=== PATIENT | male | born 1965 | race Caucasian/White ===

== ENCOUNTER 2018-03-12 00:05 | Emergency (ER) | payer OTHER, MEDICAID, SELFPAY ==
[2018-03-12 00:11] VITALS: BP 140/84; PULSE 85; RESP 16; TEMP 36.7; O2SAT 99
--- NOTE | 2018-03-12 00:25 | W.ED.GENAD ---
Discharge Plan Disposition Patient Disposition: HOME Condition: Good Discharge Details Chief Complaint: DentalOral Clinical Impression: Dental infection Primary Care Provider: Hai Guerrero ED Provider: Anmol Barrett Meds and New Rx's Prescriptions: New benzocaine [HurriCaine] 20 % Gel 30 g Mucous Membrane DIRECTED PRNQty: 30 RF: 0 clindamycin HCl 150 mg capsule 450 mg PO TID Qty: 60 RF: 0 Continue acetaminophen [Tylenol] 325 MG tablet 650 mg PO Q4H PRN PRNQty: 30 RF: 0 naproxen sodium [Aleve] 220 MG capsule 440 mg PO Q4H PRNQty: 30 RF: 0 Discharge Instructions Instructions: Dental Abscess (ED) Additional Instructions: Continue to use acetaminophen or Naprosyn as needed for pain. Use the benzocaine gel as directed every 4-6 hours to help with pain. Take antibiotic and follow-up with dentist next week. Return to ED for high fever, facial swelling, difficulty breathing, inability to swallow. Medical Decision Making Patient here with worsening dental pain. He has percussion tenderness and likely has dental infection. 20% topical benzocaine used to relieve his pain. Will be started on clindamycin for infection as he has allergies to penicillin. He just recently got dental insurance and has plans to go to [facility] [place]. Return to ED for fever, facial swelling, difficulty breathing, inability to swallow. HPI General Mode of arrival: ambulatory. Date/Time Provider Initiated Documentation: 03/12/18 00:25. Limitations to Documentation: no limitations. Information obtained by: patient. HPI Narrative: Patient here with right lower jaw pain and toothache. Started tonight before he went to work. Has got worse since being at work. He can no longer stand the pain despite taking Aleve. Presents now for evaluation. Denies any fever. Denies facial swelling. Denies difficulty breathing or swallowing. Related Data Home Medications Medication Instructions Recorded Confirmed acetaminophen [Tylenol] 650 mg PO Q4H PRN PRN #30 tab 05/07/17 03/12/18 naproxen sodium [Aleve] 440 mg PO Q4H PRN #30 05/07/17 03/12/18 benzocaine [HurriCaine] 30 g MUCOUS MEMBRANE DIRECTED 03/12/18 PRN #30 gm clindamycin HCl 450 mg PO TID #60 cap 03/12/18 Previous Rx's Medication Instructions Recorded acetaminophen [Tylenol] 650 mg PO Q4H PRN PRN #30 tab 05/07/17 naproxen sodium [Aleve] 440 mg PO Q4H PRN #30 05/07/17 benzocaine [HurriCaine] 30 g MUCOUS MEMBRANE DIRECTED 03/12/18 PRN #30 gm clindamycin HCl 450 mg PO TID #60 cap 03/12/18 Allergies Allergy/AdvReac Type Severity Reaction Status Date / Time meloxicam Allergy Mild Unverified 03/12/18 00:31 Penicillins Allergy Mild Hives Unverified 03/12/18 00:31 tramadol [From Ultram] AdvReac Intermediate Nausea, Unverified 03/12/18 00:31 vomiting General Stated Complaint: DentalOral DRU: 4 Review of Systems Constitutional Denies fever(s) ENT Reports dental pain, Denies dysphagia, Denies odynophagia and Denies sore throat Cardiovascular Denies dyspnea Respiratory Denies dyspnea Gastrointestinal Denies dysphagia and Denies odynophagia PFSH Chronic otitis media of right ear Hearing loss Heart murmur Hx of cataract Tympanic membrane perforation Family History Other Bronchitis Heart disease Lymphoma Melanoma Thyroid cancer Arthroscopy, Shoulder Extraction of cataract Nephrectomy Repair of inguinal hernia (05/07/17) ear surgery wrist surgery Family History Other Bronchitis Heart disease Lymphoma Melanoma Thyroid cancer Medical History Chronic otitis media of right ear Hearing loss Heart murmur Hx of cataract Tympanic membrane perforation Social History Smoking/Tobacco Use Status: Current every day Surgical History Arthroscopy, Shoulder Extraction of cataract Nephrectomy Repair of inguinal hernia (05/07/17) ear surgery wrist surgery Social History Smoking/Tobacco Use Status: Current every day Exam Const General: cooperative, uncomfortable and no acute distress Orientation: alert and oriented x3 HENMT Head: normocephalic and atraumatic Face and sinus: normal facial exam Mouth: oropharynx normal Teeth and gingiva: abnormal tooth or associated gingiva (Right lower molars with decay/fillings; no abscess; positive percussion tenderness) Neck Neck: normal visual inspection, no lymphadenopathy, trachea midline and supple Neuro General: alert, oriented x3, no focal motor deficits and CN's II-XI intact bilaterally Course Vital Signs Temperature 98.1 F 03/12/18 00:11 Pulse 85 03/12/18 00:11 Respiratory Rate 16 03/12/18 00:11 Blood Pressure 140/84 03/12/18 00:11 Pulse Oximetry 99 03/12/18 00:11 Temperature 98.1 F 03/12/18 00:11 Temperature Source Skin 03/12/18 00:11 Pulse 85 03/12/18 00:11 Respiratory Rate 16 03/12/18 00:11 Blood Pressure 140/84 03/12/18 00:11 Blood Pressure Position Sitting 03/12/18 00:11 Pulse Oximetry 99 03/12/18 00:11 Oxygen Delivery Method Room Air 03/12/18 00:11 Oxygen Flow Rate 0 03/12/18 00:11
--- NOTE | 2018-03-12 00:31 | ED.GENADUL_ITS ---
Discharge Plan Disposition Patient Disposition: HOME Condition: Good Discharge Details Chief Complaint: DentalOral Clinical Impression: Dental infection Primary Care Provider: Hai Guerrero ED Provider: Anmol Barrett Meds and New Rx's Prescriptions: New benzocaine [HurriCaine] 20 % Gel 30 g Mucous Membrane DIRECTED PRNQty: 30 RF: 0 clindamycin HCl 150 mg capsule 450 mg PO TID Qty: 60 RF: 0 Continue acetaminophen [Tylenol] 325 MG tablet 650 mg PO Q4H PRN PRNQty: 30 RF: 0 naproxen sodium [Aleve] 220 MG capsule 440 mg PO Q4H PRNQty: 30 RF: 0 Discharge Instructions Instructions: Dental Abscess (ED) Additional Instructions: Continue to use acetaminophen or Naprosyn as needed for pain. Use the benzocaine gel as directed every 4-6 hours to help with pain. Take antibiotic and follow-up with dentist next week. Return to ED for high fever, facial swelling, difficulty breathing, inability to swallow. Medical Decision Making Patient here with worsening dental pain. He has percussion tenderness and likely has dental infection. 20% topical benzocaine used to relieve his pain. Will be started on clindamycin for infection as he has allergies to penicillin. He just recently got dental insurance and has plans to go to [facility] [place]. Return to ED for fever, facial swelling, difficulty breathing, inability to swallow. HPI General Mode of arrival: ambulatory . Date/Time Provider Initiated Documentation: 03/12/18 00:25 . Limitations to Documentation: no limitations . Information obtained by: patient . HPI Narrative: Patient here with right lower jaw pain and toothache. Started tonight before he went to work. Has got worse since being at work. He can no longer stand the pain despite taking Aleve. Presents now for evaluation. Denies any fever. Denies facial swelling. Denies difficulty breathing or swallowing. Related Data Home Medications Medication Instructions Recorded Confirmed acetaminophen [Tylenol] 650 mg PO Q4H PRN PRN #30 tab 05/07/17 03/12/18 naproxen sodium [Aleve] 440 mg PO Q4H PRN #30 05/07/17 03/12/18 benzocaine [HurriCaine] 30 g MUCOUS MEMBRANE DIRECTED 03/12/18 PRN #30 gm clindamycin HCl 450 mg PO TID #60 cap 03/12/18 Previous Rx's Medication Instructions Recorded acetaminophen [Tylenol] 650 mg PO Q4H PRN PRN #30 tab 05/07/17 naproxen sodium [Aleve] 440 mg PO Q4H PRN #30 05/07/17 benzocaine [HurriCaine] 30 g MUCOUS MEMBRANE DIRECTED 03/12/18 PRN #30 gm clindamycin HCl 450 mg PO TID #60 cap 03/12/18 Allergies Allergy/AdvReac Type Severity Reaction Status Date / Time meloxicam Allergy Mild Unverified 03/12/18 00:31 Penicillins Allergy Mild Hives Unverified 03/12/18 00:31 tramadol [From Ultram] AdvReac Intermediate Nausea, Unverified 03/12/18 00:31 vomiting General Stated Complaint: DentalOral DRU: 4 Review of Systems Constitutional Denies fever(s) ENT Reports dental pain, Denies dysphagia, Denies odynophagia and Denies sore throat Cardiovascular Denies dyspnea Respiratory Denies dyspnea Gastrointestinal Denies dysphagia and Denies odynophagia PFSH Chronic otitis media of right ear Hearing loss Heart murmur Hx of cataract Tympanic membrane perforation Family History Other Bronchitis Heart disease Lymphoma Melanoma Thyroid cancer Arthroscopy, Shoulder Extraction of cataract Nephrectomy Repair of inguinal hernia (05/07/17) ear surgery wrist surgery Family History Other Bronchitis Heart disease Lymphoma Melanoma Thyroid cancer Medical History Chronic otitis media of right ear Hearing loss Heart murmur Hx of cataract Tympanic membrane perforation Social History Smoking/Tobacco Use Status: Current every day Surgical History Arthroscopy, Shoulder Extraction of cataract Nephrectomy Repair of inguinal hernia (05/07/17) ear surgery wrist surgery Social History Smoking/Tobacco Use Status: Current every day Exam Const General: cooperative, uncomfortable and no acute distress Orientation: alert and oriented x3 HENMT Head: normocephalic and atraumatic Face and sinus: normal facial exam Mouth: oropharynx normal Teeth and gingiva: abnormal tooth or associated gingiva (Right lower molars with decay/fillings; no abscess; positive percussion tenderness) Neck Neck: normal visual inspection, no lymphadenopathy, trachea midline and supple Neuro General: alert, oriented x3, no focal motor deficits and CN's II-XI intact bilaterally Course Vital Signs Temperature 98.1 F 03/12/18 00:11 Pulse 85 03/12/18 00:11 Respiratory Rate 16 03/12/18 00:11 Blood Pressure 140/84 03/12/18 00:11 Pulse Oximetry 99 03/12/18 00:11 Temperature 98.1 F 03/12/18 00:11 Temperature Source Skin 03/12/18 00:11 Pulse 85 03/12/18 00:11 Respiratory Rate 16 03/12/18 00:11 Blood Pressure 140/84 03/12/18 00:11 Blood Pressure Position Sitting 03/12/18 00:11 Pulse Oximetry 99 03/12/18 00:11 Oxygen Delivery Method Room Air 03/12/18 00:11 Oxygen Flow Rate 0 03/12/18 00:11
[2018-03-12] MEDS: Benzocaine 20% Gel 30 GM JAR MM (00:35)
[2018-03-12] MEDS: Clindamycin 150 MG CAP 450 MG PO (00:45)
== END 2018-03-12 00:55 | disposition home or self-care (01) ==
LOC: ER 01:01
PROVIDERS: Emergency Provider Emergency Medicine; PCP Family Medicine
DX: R68.84 Jaw pain (principal); K04.7 Periapical abscess without sinus
CPT/HCPCS: 99283

== ENCOUNTER 2018-04-20 16:33 | Outpatient (REF) | payer OTHER, MEDICAID, SELFPAY ==
[2018-04-21 12:46] LABS: HCT 44.2 % (40.0-50.0); HGB 15.2 g/dL (13.5-17.5); Mean Corp. HGB Concentration 34.4 g/dL (32.0-36.0); Mean Corpuscular Hemoglobin 31.5 pg (27.0-33.0); Mean Corpuscular Volume 91.5 fL (80-95); Mean Platelet Volume 10.3 fL (8.0-11.0); Platelet Count 307 x1000/uL (130-400); RBC 4.83 m/cumm (4.50-6.00); RBC Distribution Width 13.7 % (11.8-14.1); White Blood Cell Count 11.97 k/cumm (4.4-10.8)
[2018-04-21 13:13] LABS: Iron 35 ug/dL (50-175); Total Iron Binding Capacity 241 ug/dL (250-450); Transferrin Sat 15 % (20-55)
[2018-04-21 13:40] LABS: ALT 13 U/L (12-78); AST 20 U/L (15-37); Albumin 3.6 g/dL (3.4-5.0); Alkaline Phosphatase 92 U/L (46-116); Anion Gap 7.6 mmol/L (3-11); BUN 20 mg/dL (7-18); Bilirubin, Total 0.3 mg/dL (0.2-1.0); CO2 27.4 mmol/L (21.0-32.0); Calcium 9.2 mg/dL (8.5-10.1); Chloride 107 mmol/L (98-107); Estimated GFR 48.95 (mL/min/1.73m2); Glucose 86 mg/dL (70-100); Potassium 4.6 mmol/L (3.5-5.1); Sodium 142 mmol/L (136-145); Total Protein 6.9 g/dL (6.4-8.2); Vitamin B12 478 pg/mL (193-986)
[2018-04-21 13:49] LABS: ESR 9 MM/HR (1-20)
[2018-04-21 13:56] LABS: C-Reactive Protein 0.35 mg/dL (0.0-0.3)
[2018-04-24 10:35] LABS: Testosterone, Free 9.98 ng/dL (4.06-15.6); Testosterone, Total 624 ng/dL (240-950)
== END 2018-04-20 16:53 ==
LOC: NCHCN 16:33
PROVIDERS: PCP Family Medicine; Visit Provider Nurse Practitioner Family
DX: R53.83 Other fatigue (principal); R63.4 Abnormal weight loss
CPT/HCPCS: 80053; 84402; 84403; 85027; 85652; 82607; 83540; 83550; 86140

== ENCOUNTER 2018-08-05 17:53 | Emergency (ER) | payer OTHER, SELFPAY ==
[2018-08-05 17:58] VITALS: BP 143/89; PULSE 91; RESP 14; TEMP 36.7; O2SAT 96
--- NOTE | 2018-08-05 18:09 | ED.GENADUL_ITS ---
Discharge Plan Disposition Patient Disposition: HOME Condition: Stable Discharge Details Chief Complaint: GenMedical Clinical Impression: Bronchitis Primary Care Provider: Rosalia Damon ED Provider: Osmin Larose Home Meds and New Rx's Prescriptions: New prednisone 20 mg tablet 60 mg PO DAILY 4 Days Qty: 12 RF: 0 doxycycline hyclate 100 mg tablet 100 mg PO BID Qty: 14 RF: 0 ondansetron 4 mg tablet,disintegrating 4 mg PO TID-QID PRN (Reason: nausea and vomiting) Qty: 20 RF: 0 No Action acetaminophen [Tylenol] 325 MG tablet 650 mg PO Q4H PRN PRNQty: 30 RF: 0 naproxen sodium [Aleve] 220 MG capsule 440 mg PO Q4H PRNQty: 30 RF: 0 Discharge Instructions Instructions: Acute Bronchitis (ED) Additional Instructions: follow up with your primary care provider if not better by next week if you feel significantly more ill, have worsening shortness of breath or persistent vomit return to the emergency department Medical Decision Making 52 yo male who denies chronic medical problems, does smoke, denies alcohol or ivdu use, who comes in with 2 days of dry cough and sore throat and chills. Denies fevers, recent travel, rashes. 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 I suspect uri and possible undiagnosed copd with exacerbation, will tx with neb, prednisone and abx. Will also check influenza and strep testing. He has stable vitals without fevers and appears well so doubt sepsis or pna at this time, do not feel blood work or xray indicated pt feels better after breathing tx and prednisone. sTrep and influenza test negative. Remains hd stable, no abdominal tenderness, no severe headaches or meningismus. Suspect a uri, will tx as possible bronchitis with his smoking hx. Advised f/u with pcp and return precautions given Differential Diagnosis strep, bronchitis, pna, influenza Lab Data Lab results reviewed: Yes I reviewed the patient's lab results. HPI General Mode of arrival: ambulatory . Date/Time Provider Initiated Documentation: 08/05/18 17:57 . Limitations to Documentation: no limitations . Information obtained by: patient . History of Present Illness 52 year old M presents to the emergency department with the chief complaint of sore throat, described as moderate, Quality is described as aching, Patient started experiencing this day(s) (2) No relieving factors improve symptom(s), No exacerbating factors reported . Patient notes cough. Patient did receive the following treatments prior to arrival, none Related Data Home Medications Medication Instructions Recorded Confirmed acetaminophen [Tylenol] 650 mg PO Q4H PRN PRN #30 tab 05/07/17 08/05/18 naproxen sodium [Aleve] 440 mg PO Q4H PRN #30 05/07/17 08/05/18 doxycycline hyclate 100 mg PO BID #14 tab 08/05/18 ondansetron 4 mg PO TID-QID PRN #20 tab 08/05/18 prednisone 60 mg PO DAILY 4 Days #12 tab 08/05/18 Previous Rx's Medication Instructions Recorded acetaminophen [Tylenol] 650 mg PO Q4H PRN PRN #30 tab 05/07/17 naproxen sodium [Aleve] 440 mg PO Q4H PRN #30 05/07/17 doxycycline hyclate 100 mg PO BID #14 tab 08/05/18 ondansetron 4 mg PO TID-QID PRN #20 tab 08/05/18 prednisone 60 mg PO DAILY 4 Days #12 tab 08/05/18 Allergies Allergy/AdvReac Type Severity Reaction Status Date / Time meloxicam Allergy Mild Unverified 08/05/18 18:03 Penicillins Allergy Mild Hives Unverified 08/05/18 18:03 tramadol [From Ultram] AdvReac Intermediate Nausea, Unverified 08/05/18 18:03 vomiting General Stated Complaint: GenMedical DRU: 3 Review of Systems Review of Systems All systems reviewed & are unremarkable except as noted in HPI and below Constitutional Denies fever(s) Cardiovascular Denies chest pain Gastrointestinal Denies abdominal pain, Denies nausea and Denies vomiting Genitourinary Denies dysuria Integumentary/Breasts Denies rash PFSH Medical History Chronic otitis media of right ear Hearing loss Heart murmur Hx of cataract Tympanic membrane perforation Surgical History Arthroscopy, Shoulder Extraction of cataract Nephrectomy Repair of inguinal hernia (05/07/17) ear surgery wrist surgery Family History Other Bronchitis Heart disease Lymphoma Melanoma Thyroid cancer Social History Smoking/Tobacco Use Status: Current every day Tobacco Type: cigarettes Alcohol Intake: never Drug use: Daily Substance use type: marijuana Do you feel safe at home: Yes Do you feel safe in your relationship?: Yes Exam Const General: no acute distress Orientation: alert HENMT Head: normal to inspection Ears: external ears normal General nose exam: external nose normal Mouth: moist mucous membranes Eyes General: appearance normal, both eyes and all related structures Neck Neck: normal visual inspection Resp Effort & Inspection: normal respiratory effort and able to speak in complete sentences Cardio Rate: regular rate Skin General skin exam: no rashes or lesions noted Neuro General: alert and oriented x3 Extrem General: normal to inspection Psych Mental Status: mental status grossly normal Course Vital Signs Temperature 36.7 C 08/05/18 17:58 Pulse 91 H 08/05/18 17:58 Respiratory Rate 14 08/05/18 17:58 Blood Pressure 143/89 H 08/05/18 17:58 Pulse Oximetry 96 08/05/18 17:58 Temperature 36.7 C 08/05/18 17:58 Temperature Source Temporal Artery Scan 08/05/18 17:58 Pulse 91 H 08/05/18 17:58 Respiratory Rate 14 08/05/18 17:58 Respiratory Effort Non-Labored 08/05/18 18:01 Blood Pressure 143/89 H 08/05/18 17:58 Blood Pressure Position Sitting 08/05/18 17:58 Pulse Oximetry 96 08/05/18 17:58 Oxygen Delivery Method Room Air 08/05/18 17:58 Oxygen Flow Rate 0 08/05/18 17:58 Pain Level 6 08/05/18 17:58 Lab/Test Results Lab/Test Results: 08/05/18 18:08 Nasopharynx Influenza Types A,B Antigen - Pending
[2018-08-05] MEDS: predniSONE 20 MG TAB 60 MG PO (18:16)
[2018-08-05] MEDS: Albuterol/Ipratropium 3 ML UPD VIAL UPD (18:16)
[2018-08-05 18:35] VITALS: RESP 18
[2018-08-05] MEDS: Albuterol HFA 8 GM 60 PUFF INH IH (19:03)
[2018-08-05] MEDS: Doxycycline Hyclate 100 MG CAP PO (19:04)
[2018-08-05 19:09] VITALS: PULSE 100; RESP 22; TEMP 37.9
== END 2018-08-05 19:12 | disposition home or self-care (01) ==
PROVIDERS: Emergency Provider Emergency Medicine; PCP Nurse Practitioner Family
DX: J20.9 Acute bronchitis, unspecified (principal); J02.9 Acute pharyngitis, unspecified; F17.210 Nicotine dependence, cigarettes, uncomplicated
CPT/HCPCS: 87449; 87880; 99283; 87081; J7512; J7620

== ENCOUNTER 2018-08-19 11:31 | Emergency (ER) | payer OTHER, SELFPAY ==
[2018-08-19 11:34] VITALS: BP 114/70; PULSE 80; RESP 16; TEMP 36.5; O2SAT 96
--- NOTE | 2018-08-19 11:41 | DI.CT_ITS ---
SYMPTOM/DIAGNOSIS: RLQ ABD PAIN, MULTIPLE ABD SURGERIES ABDOMEN AND PELVIC CT: CT examination of the abdomen and pelvis was performed with a bolus infusion of 77 cc's of Omnipaque 350. Images obtained through the lung bases are unremarkable except for a calcified granuloma of the right lung base consistent with healed granulomatous disease. Liver, spleen and pancreas appear normal. The abdominal aorta is within normal limits in diameter and no major vascular abnormality is seen. No gross abdominal or pelvic adenopathy. The patient has had a prior left nephrectomy. There is a 3.2 cm. in diameter, lower pole, heterogeneous enhancing right renal mass consistent with renal cell carcinoma. No evidence of obstruction. No urinary tract calcification identified. No significant abdominal wall hernia is seen. Appendix appears normal. No evidence of diverticulitis or bowel obstruction. CONCLUSION: 3.2 cm. in diameter right renal mass suspicious for renal carcinoma. No evidence of acute intra-abdominal process.
--- NOTE | 2018-08-19 11:45 | W.ED.GENAD ---
Discharge Plan Disposition Patient Disposition: HOME Condition: Stable Discharge Details Chief Complaint: Nausea/Vomit/Diar Clinical Impression: Abdominal pain, Mass of right kidney Primary Care Provider: Rosalia Damon ED Provider: Severo Galindo Home Meds and New Rx's Prescriptions: No Action doxycycline hyclate 100 mg tablet 100 mg PO BID Qty: 14 RF: 0 ondansetron 4 mg tablet,disintegrating 4 mg PO TID-QID PRN (Reason: nausea and vomiting) Qty: 20 RF: 0 acetaminophen [Tylenol] 325 MG tablet 650 mg PO Q4H PRN PRNQty: 30 RF: 0 naproxen sodium [Aleve] 220 MG capsule 440 mg PO Q4H PRNQty: 30 RF: 0 Discharge Instructions Instructions: Abdominal Pain (ED) Additional Instructions: Please follow-up promptly with the [facility] urology clinic. If you do not hear back from them within a week, please call them at the following number: [phone] If you notice any worsening of your symptoms, or any new symptoms such as vomiting, diarrhea, fever, chills, shortness of breath, chest pain, numbness, weakness, or fainting , please return immediately to the emergency department for reevaluation. Please follow up with your primary care provider as soon as possible for reassessment and reevaluation. As always, it was a pleasure participating in your medical care today. Referrals: Rosalia Damon [Primary Care Provider] - Medical Decision Making This is a 52-year-old male with a past medical history of nephrectomy secondary to renal cyst, as well as inguinal hernia repair, who presents today for evaluation of right lower quadrant abdominal pain, vomiting, and multiple episodes of diarrhea and now subsequent constipation. Symptoms have been present over the last 2 days. He denies any red flags of hematemesis, dysuria, or testicular pain. Exam demonstrates mild right lower quadrant abdominal pain with no significant radiation. Differential includes appendicitis, obstruction, or mild gastroenteritis. We will rehydrate, treat his pain, get a CT scan to rule out acute abdominal process and reassess. 2:21 PM Patient's laboratory work-up has returned, no white count, no anemia, electrolytes are normal, renal function stable, creatinine 1.1, BUN 20 urinalysis shows no evidence of urinary tract infection. CT scan results have returned and per Dr. Scott the patient does have evidence of a large heterogenous mass on his right kidney, there is concern for malignancy. No other signs of metastases to other components of the body. Patient is feeling much better after 2 L of normal saline. With his history of recent weight loss, and notable fatigue, they feel that this correlates well with his no evidence of renal potential malignancy. We did contact local urology here and spoke with Clare Truong, and they recommend referral to [facility] for further evaluation. We did contact [facility] urology, I spoke with , he agrees with the plan and the need for prompt follow-up. I have updated the patient's contact number, and the urology clinic will contact the patient. With stable vital signs, notable improvement of his symptomatology, I feel he can be discharged with his close follow-up. Spent a long time discussing the case, and expected future management with the patient and his family. I have extensively reviewed the treatment plan and discharge instructions with the patient and their family. I have addressed all patient concerns at this time. The patient and family was made aware of what symptoms to monitor for that would warrant a return to the emergency department. Discussed the plan with the patient and family, they demonstrate verbal understanding and agreement with our assessment and plan at this time. Exam(s) a CT:CT abdomen & pelvis w SYMPTOM/DIAGNOSIS: RLQ ABD PAIN, MULTIPLE ABD SURGERIES ABDOMEN AND PELVIC CT: CT examination of the abdomen and pelvis was performed with a bolus infusion of 77 cc's of Omnipaque 350. Images obtained through the lung bases are unremarkable except for a calcified granuloma of the right lung base consistent with healed granulomatous disease. Liver, spleen and pancreas appear normal. The abdominal aorta is within normal limits in diameter and no major vascular abnormality is seen. No gross abdominal or pelvic adenopathy. The patient has had a prior left nephrectomy. There is a 3.2 cm. in diameter, lower pole, heterogeneous enhancing right renal mass consistent with renal cell carcinoma. No evidence of obstruction. No urinary tract calcification identified. No significant abdominal wall hernia is seen. Appendix appears normal. No evidence of diverticulitis or bowel obstruction. CONCLUSION: 3.2 cm. in diameter right renal mass suspicious for renal carcinoma. No evidence of acute intra-abdominal process. [id number]: Total DLP = 0.00 mGy-cm HPI General Date/Time Provider Initiated Documentation: 08/19/18 11:34. HPI Narrative: This is a 52-year-old male with a past medical history of left nephrectomy secondary to multiple renal cysts, who presents today for evaluation of right lower quadrant abdominal pain, and feelings of malaise. The patient states that over the last 2 days he has had multiple episodes of diarrhea which is now resolved and intermittent constipation, and few episodes of vomiting as well. He has not eaten anything for the last 24 to 48 hours. He denies any hematemesis, hematochezia, melena, or acholic stool. He denies any testicular pain, or pelvic pain. He denies any dysuria, hematuria or increase in urinary frequency. He does admit to mild runny nose, but denies any cough, chest pain or shortness of breath. He denies any history of previous intestinal obstruction. He has no other complaints or modifying factors at this time. Related Data Home Medications Medication Instructions Recorded Confirmed acetaminophen [Tylenol] 650 mg PO Q4H PRN PRN #30 tab 05/07/17 08/05/18 naproxen sodium [Aleve] 440 mg PO Q4H PRN #30 05/07/17 08/05/18 doxycycline hyclate 100 mg PO BID #14 tab 08/05/18 ondansetron 4 mg PO TID-QID PRN #20 tab 08/05/18 Previous Rx's Medication Instructions Recorded acetaminophen [Tylenol] 650 mg PO Q4H PRN PRN #30 tab 05/07/17 naproxen sodium [Aleve] 440 mg PO Q4H PRN #30 05/07/17 doxycycline hyclate 100 mg PO BID #14 tab 08/05/18 ondansetron 4 mg PO TID-QID PRN #20 tab 08/05/18 Allergies Allergy/AdvReac Type Severity Reaction Status Date / Time meloxicam Allergy Mild Unverified 08/05/18 18:03 Penicillins Allergy Mild Hives Unverified 08/05/18 18:03 tramadol [From Ultram] AdvReac Intermediate Nausea, Unverified 08/05/18 18:03 vomiting General Stated Complaint: Nausea/Vomit/Diar DRU: 3 Review of Systems Review of Systems All systems reviewed & are unremarkable except as noted in HPI and below PFSH Family History Other Bronchitis Heart disease Lymphoma Melanoma Thyroid cancer Social History Smoking/Tobacco Use Status: Current every day Tobacco Type: cigarettes Alcohol Intake: never Drug use: Daily Substance use type: marijuana Do you feel safe at home: Yes Do you feel safe in your relationship?: Yes Exam Narrative Exam Narrative: 1.Const: Well-nourished, Well-developed, appearing stated age 2.Eyes: PERRL, no conjunctival injection, and symmetrical lids. 3.ENT: Atraumatic external nose and ears. Moist MM. Neck: Symmetric, trachea midline, No thyromegaly. 4.CVS: +S1/S2, No murmurs or gallops. Peripheral pulses 2+ and equal in all extremities. Brisk capillary refill in all extremities. 5.RESP: Unlabored respiratory effort. Clear to auscultation bilaterally. No wheezes rales or rhonchi 6.GI: Soft, Nondistended, No hepatosplenomegaly. Mild right lower quadrant abdominal pain on palpation. Mild right CVA tenderness. Negative obturator and psoas sign. Mild pain with right heel strike. No pain in the left lower quadrant, negative Lozano sign. Genital exam demonstrated normal male genitalia, bilaterally descended testicles, normal cremasteric reflex bilaterally. 7.MSK: Normocephalic/Atraumatic, Extremities w/o deformity or ttp No cyanosis or clubbing, Normal movement of all extremities 8.Skin: Warm, Dry. No rashes or lesions. 9.Neuro: regroover II-XII grossly intact. Sensation grossly intact, no focal neurologic deficits. 10.Psych: (AAO) x3. Appropriate mood and affect Course Vital Signs Temperature 36.5 C 08/19/18 11:34 Pulse 80 08/19/18 11:34 Respiratory Rate 16 08/19/18 11:34 Blood Pressure 114/70 08/19/18 11:34 Pulse Oximetry 96 08/19/18 11:34 Temperature 36.5 C 08/19/18 11:34 Temperature Source Skin 08/19/18 11:34 Pulse 80 08/19/18 11:34 Respiratory Rate 16 08/19/18 11:34 Blood Pressure 114/70 08/19/18 11:34 Blood Pressure Position Sitting 08/19/18 11:34 Pulse Oximetry 96 08/19/18 11:34 Oxygen Delivery Method Room Air 08/19/18 11:34 Oxygen Flow Rate 0 08/19/18 11:34 Pain Level 5 08/19/18 11:34
--- NOTE | 2018-08-19 11:48 | ED.GENADUL_ITS ---
Discharge Plan Disposition Patient Disposition: HOME Condition: Stable Discharge Details Chief Complaint: Nausea/Vomit/Diar Clinical Impression: Abdominal pain, Mass of right kidney Primary Care Provider: Rosalia Damon ED Provider: Severo Galindo Home Meds and New Rx's Prescriptions: No Action doxycycline hyclate 100 mg tablet 100 mg PO BID Qty: 14 RF: 0 ondansetron 4 mg tablet,disintegrating 4 mg PO TID-QID PRN (Reason: nausea and vomiting) Qty: 20 RF: 0 acetaminophen [Tylenol] 325 MG tablet 650 mg PO Q4H PRN PRNQty: 30 RF: 0 naproxen sodium [Aleve] 220 MG capsule 440 mg PO Q4H PRNQty: 30 RF: 0 Discharge Instructions Instructions: Abdominal Pain (ED) Additional Instructions: Please follow-up promptly with the [facility] urology clinic. If you do not hear back from them within a week, please call them at the following number: [phone] If you notice any worsening of your symptoms, or any new symptoms such as vomiting, diarrhea, fever, chills, shortness of breath, chest pain, numbness, weakness, or fainting , please return immediately to the emergency department for reevaluation. Please follow up with your primary care provider as soon as possible for reassessment and reevaluation. As always, it was a pleasure participating in your medical care today. Referrals: Rosalia Damon [Primary Care Provider] - Medical Decision Making This is a 52-year-old male with a past medical history of nephrectomy secondary to renal cyst, as well as inguinal hernia repair, who presents today for evaluation of right lower quadrant abdominal pain, vomiting, and multiple episodes of diarrhea and now subsequent constipation. Symptoms have been present over the last 2 days. He denies any red flags of hematemesis, dysuria, or testicular pain. Exam demonstrates mild right lower quadrant abdominal pain with no significant radiation. Differential includes appendicitis, obstruction, or mild gastroenteritis. We will rehydrate, treat his pain, get a CT scan to rule out acute abdominal process and reassess. 2:21 PM Patient's laboratory work-up has returned, no white count, no anemia, electrolytes are normal, renal function stable, creatinine 1.1, BUN 20 urinalysis shows no evidence of urinary tract infection. CT scan results have returned and per Dr. Scott the patient does have evidence of a large heterogenous mass on his right kidney, there is concern for malignancy. No other signs of metastases to other components of the body. Patient is feeling much better after 2 L of normal saline. With his history of recent weight loss, and notable fatigue, they feel that this correlates well with his no evidence of renal potential malignancy. We did contact local urology here and spoke with Clare Truong, and they recommend referral to [facility] for further evaluation. We did contact [facility] urology, I spoke with , he agrees with the plan and the need for prompt follow-up. I have updated the patient's contact number, and the urology clinic will contact the patient. With stable vital signs, notable improvement of his symptomatology, I feel he can be discharged with his close follow-up. Spent a long time discussing the case, and expected future management with the patient and his family. I have extensively reviewed the treatment plan and discharge instructions with the patient and their family. I have addressed all patient concerns at this time. The patient and family was made aware of what symptoms to monitor for that would warrant a return to the emergency department. Discussed the plan with the patient and family, they demo nstrate verbal understanding and agreement with our assessment and plan at this time. Exam(s) a CT:CT abdomen & pelvis w SYMPTOM/DIAGNOSIS: RLQ ABD PAIN, MULTIPLE ABD SURGERIES ABDOMEN AND PELVIC CT: CT examination of the abdomen and pelvis was performed with a bolus infusion of 77 cc's of Omnipaque 350. Images obtained through the lung bases are unremarkable except for a calcified granuloma of the right lung base consistent with healed granulomatous disease. Liver, spleen and pancreas appear normal. The abdominal aorta is within normal limits in diameter and no major vascular abnormality is seen. No gross abdominal or pelvic adenopathy. The patient has had a prior left nephrectomy. There is a 3.2 cm. in diameter, lower pole, heterogeneous enhancing right renal mass consistent with renal cell carcinoma. No evidence of obstruction. No urinary tract calcification identified. No significant abdominal wall hernia is seen. Appendix appears normal. No evidence of diverticulitis or bowel obstruction. CONCLUSION: 3.2 cm. in diameter right renal mass suspicious for renal carcinoma. No evidence of acute intra-abdominal process. [id number]: Total DLP = 0.00 mGy-cm HPI General Date/Time Provider Initiated Documentation: 08/19/18 11:34 . HPI Narrative: T his is a 52-year-old male with a past medical history of left nephrectomy secondary to multiple renal cysts, who presents today for evaluation of right lower quadrant abdominal pain, and feelings of malaise. The patient states that over the last 2 days he has had multiple episodes of diarrhea which is now resolved and intermittent constipation, and few episodes of vomiting as well. He has not eaten anything for the last 24 to 48 hours. He denies any hematemesis, hematochezia, melena, or acholic stool. He denies any testicular pain, or pelvic pain. He denies any dysuria, hematuria or increase in urinary frequency. He does admit to mild runny nose, but denies any cough, chest pain or shortness of breath. He denies any history of previous intestinal obstruction. He has no other complaints or modifying factors at this time. Related Data Home Medications Medication Instructions Recorded Confirmed acetaminophen [Tylenol] 650 mg PO Q4H PRN PRN #30 tab 05/07/17 08/05/18 naproxen sodium [Aleve] 440 mg PO Q4H PRN #30 05/07/17 08/05/18 doxycycline hyclate 100 mg PO BID #14 tab 08/05/18 ondansetron 4 mg PO TID-QID PRN #20 tab 08/05/18 Previous Rx's Medication Instructions Recorded acetaminophen [Tylenol] 650 mg PO Q4H PRN PRN #30 tab 05/07/17 naproxen sodium [Aleve] 440 mg PO Q4H PRN #30 05/07/17 doxycycline hyclate 100 mg PO BID #14 tab 08/05/18 ondansetron 4 mg PO TID-QID PRN #20 tab 08/05/18 Allergies Allergy/AdvReac Type Severity Reaction Status Date / Time meloxicam Allergy Mild Unverified 08/05/18 18:03 Penicillins Allergy Mild Hives Unverified 08/05/18 18:03 tramadol [From Ultram] AdvReac Intermediate Nausea, Unverified 08/05/18 18:03 vomiting General Stated Complaint: Nausea/Vomit/Diar DRU: 3 Review of Systems Review of Systems All systems reviewed & are unremarkable except as noted in HPI and below PFSH Family History Other Bronchitis Heart disease Lymphoma Melanoma Thyroid cancer Social History Smoking/Tobacco Use Status: Current every day Tobacco Type: cigarettes Alcohol Intake: never Drug use: Daily Substance use type: marijuana Do you feel safe at home: Yes Do you feel safe in your relationship?: Yes Exam Narrative Exam Narrative: 1.Const: Well-nourished, Well-developed, appearing stated age 2.Eyes: PERRL, no conjunctival injection, and symmetrical lids. 3.ENT: Atraumatic external nose and ears. Moist MM. Neck: Symmetric, trachea m idline, No thyromegaly. 4.CVS: +S1/S2, No murmurs or gallops. Peripheral pulses 2+ and equal in all extremities. Brisk capillary refill in all extremities. 5.RESP: Unlabored respiratory effort. Clear to auscultation bilaterally. No wheezes rales or rhonchi 6.GI: Soft, Nondistended, No hepatosplenomegaly. Mild right lower quadrant abdominal pain on palpation. Mild right CVA tenderness. Negative obturator and psoas sign. Mild pain with right heel strike. No pain in the left lower quadrant, negative Lozano sign. Genital exam demonstrated normal male genitalia, bilaterally descended testicles, normal cremasteric reflex bilaterally. 7.MSK: Normocephalic/Atraumatic, Extremities w/o deformity or ttp No cyanosis or clubbing, Normal movement of all extremities 8.Skin: Warm, Dry. No rashes or lesions. 9.Neuro: public policy professor II-XII grossly intact. Sensation grossly intact, no focal neurologic deficits. 10.Psych: (AAO) x3. Appropriate mood and affect Course Vital Signs Temperature 36.5 C 08/19/18 11:34 Pulse 80 08/19/18 11:34 Respiratory Rate 16 08/19/18 11:34 Blood Pressure 114/70 08/19/18 11:34 Pulse Oximetry 96 08/19/18 11:34 Temperature 36.5 C 08/19/18 11:34 Temperature Source Skin 08/19/18 11:34 Pulse 80 08/19/18 11:34 Respiratory Rate 16 08/19/18 11:34 Blood Pressure 114/70 08/19/18 11:34 Blood Pressure Position Sitting 08/19/18 11:34 Pulse Oximetry 96 08/19/18 11:34 Oxygen Delivery Method Room Air 08/19/18 11:34 Oxygen Flow Rate 0 08/19/18 11:34 Pain Level 5 08/19/18 11:34
[2018-08-19] MEDS: Normal Saline 1,000 ML 1000 ML IV ×2 (11:56→14:00)
[2018-08-19] MEDS: Acetaminophen 500 MG TAB 1000 MG PO (11:56)
[2018-08-19 11:59] LABS: Abs Immature Grans 0.02 k/cumm (0.0-0.09); Absolute Basophil Count 0.04 k/cumm (0.0-0.2); Absolute Neutrophil Count 4.51 k/cumm (1.2-6.7); Basophils % 0.5; Eosinophils % 2.6; HCT 50.4 % (40.0-50.0); HGB 17.1 g/dL (13.5-17.5); Immature Grans % 0.3; Lymphocytes % 25.7; Mean Corp. HGB Concentration 33.9 g/dL (32.0-36.0); Mean Corpuscular Hemoglobin 30.6 pg (27.0-33.0); Mean Corpuscular Volume 90.2 fL (80-95); Mean Platelet Volume 9.4 fL (8.0-11.0); Monocytes % 12.9; Platelet Count 371 x1000/uL (130-400); RBC 5.59 m/cumm (4.50-6.00); RBC Distribution Width 14.2 % (11.8-14.1); White Blood Cell Count 7.77 k/cumm (4.4-10.8)
[2018-08-19 12:13] LABS: ALT 34 U/L (12-78); AST 32 U/L (15-37); Alkaline Phosphatase 86 U/L (46-116); Anion Gap 9.4 mmol/L (3-11); BUN 20 mg/dL (7-18); Bilirubin, Total 0.6 mg/dL (0.2-1.0); CO2 27.6 mmol/L (21.0-32.0); Chloride 99 mmol/L (98-107); Glucose 97 mg/dL (70-100); Lipase 147 U/L (73-393); Potassium 4.2 mmol/L (3.5-5.1); Sodium 136 mmol/L (136-145); Total Protein 8.3 g/dL (6.4-8.2)
[2018-08-19 12:28] LABS: Calcium 9.4 mg/dL (8.5-10.1)
[2018-08-19 13:20] LABS: Bilirubin Negative (Negative); Blood Negative (Negative); Clarity Clear; Glucose Negative (Negative); Ketones Negative (Negative); Leukocyte Esterase Negative (Negative); Nitrite Negative (Negative); Specific Gravity 1.015 (1.005-1.025); Urobilinogen 0.2 EU/dL (Up TO 0.2)
[2018-08-19] MEDS: Omnipaque 350 MG/ML 100 ML BTL IJ (13:27)
[2018-08-19 13:51] VITALS: BP 121/67; PULSE 70; RESP 16; TEMP 36.6; O2SAT 99
== END 2018-08-19 15:09 | disposition home or self-care (01) ==
PROVIDERS: Emergency Provider Student in an Organized Health Care Education/Training Program; PCP Nurse Practitioner Family
DX: R10.31 Right lower quadrant pain (principal); N28.89 Other specified disorders of kidney and ureter; Z90.5 Acquired absence of kidney
CPT/HCPCS: 36415; 80053; 83690; 96361; 96374; 99285; 74177; 81003; 85025; 99284; J3490

== ENCOUNTER 2019-02-05 18:37 | Outpatient (REF) | payer OTHER, SELFPAY ==
[2019-02-05 18:47] LABS: HCT 50.1 % (40.0-50.0); HGB 17.3 g/dL (13.5-17.5); Mean Corp. HGB Concentration 34.5 g/dL (32.0-36.0); Mean Corpuscular Hemoglobin 31.2 pg (27.0-33.0); Mean Corpuscular Volume 90.3 fL (80-95); Mean Platelet Volume 9.9 fL (8.0-11.0); Platelet Count 362 x1000/uL (130-400); RBC 5.55 m/cumm (4.50-6.00); RBC Distribution Width 14.1 % (11.8-14.1); White Blood Cell Count 12.56 k/cumm (4.4-10.8)
[2019-02-05 18:57] LABS: Iron 81 ug/dL (50-175); Total Iron Binding Capacity 296 ug/dL (250-450); Transferrin Sat 27 % (20-55)
[2019-02-05 19:23] LABS: Anion Gap 10.8 mmol/L (3-11); BUN 17 mg/dL (7-18); CO2 27.2 mmol/L (21.0-32.0); CREATININE 1.22 mg/dL (0.70-1.30); Calcium 10.1 mg/dL (8.5-10.1); Chloride 99 mmol/L (98-107); Glucose 97 mg/dL (70-100); Sodium 137 mmol/L (136-145); Vitamin B12 563 pg/mL (193-986)
== END 2019-02-05 18:57 ==
LOC: NCHCN 18:37
PROVIDERS: PCP Nurse Practitioner Family; Visit Provider Nurse Practitioner Family
DX: R53.83 Other fatigue (principal); R63.4 Abnormal weight loss
CPT/HCPCS: 80048; 82306; 85027; 82607; 83540; 83550

== ENCOUNTER 2019-06-01 17:02 | Emergency (ER) | payer OTHER, SELFPAY ==
[2019-06-01 17:07] VITALS: BP 123/76; PULSE 79; RESP 20; TEMP 36.8; O2SAT 98
--- NOTE | 2019-06-01 17:15 | DI.CT_ITS ---
EXAM: CT ABDOMEN PELVIS WO CLINICAL HISTORY: RLQ abdominal pain and flank pain w/ hematuria TECHNIQUE: Noncontrast COMPARISON: CT ABDOMEN PELVIS W from 08/19/2018 FINDINGS: Suture material is seen at the posterior lower pole of the right kidney in the area of the previous mass. Evaluation for related residual mass is limited due to lack of IV contrast. There is no evide nce of right-sided renal or ureteral calculi. The bladder is mildly distended and unremarkable. The patient is status post left nephrectomy. Prostate is unremarkable. No inguinal or abdominal wall h ernias are seen. No bowel dilatation or inflammatory changes are seen. There is no evidence of willa nopathy. Atherosclerotic changes are again noted in aorta. There is mild dilatation. Calcified granulomas are again noted at the lung bases. An incidental cyst is seen in the left lobe the liver. There is at a artifact at the level of the gallbladder. No abnormal gallbladder distenti on or wall thickening is seen. There is no biliary dilatation. The spleen, pancreas and adrenals ar e unremarkable. IMPRESSION: Prior resection mass of the lower pole of the right kidney. No gross evidence of recurrence. No hyd ronephrosis or other acute abnormality is seen.
--- NOTE | 2019-06-01 17:30 | ED.GENADUL_ITS ---
Discharge Plan Disposition Patient Disposition: HOME Condition: Good Discharge Details Chief Complaint: Abd Prob Clinical Impression: Rectal fissure, Hematuria, Pancreatitis Primary Care Provider: Rosalia Damon ED Provider: Severo Galindo Home Meds and New Rx's Prescriptions: New hydrocortisone acetate [Anusol-HC] 25 mg suppository 25 mg MA BID Qty: 24 RF: 0 No Action acetaminophen [Tylenol] 325 MG tablet 650 mg PO Q4H PRN PRNQty: 30 RF: 0 naproxen sodium [Aleve] 220 MG capsule 440 mg PO Q4H PRNQty: 30 RF: 0 Discharge Instructions Instructions: Pancreatitis (ED), Anal Fissure (ED), Hematuria (ED) Additional Instructions: At this time your CT scan shows no evidence of significant life-threatening abnormality, your renal function is excellent. I do feel that there are few issues of concern though. #1: Your labs are concerning for mild pancreatitis. In the absence of vomiting, there is no significant changes that we need to make. I would recommend sticking with a bland diet of oatmeal, plain rice, with no fatty, spicy, greasy foods. Please stick with this for the next week. #2: You have a small anal fissure which is likely causing the pain near your rectum. Please use the suppositories as directed to help with this, maintain soft stools with [id number] stool softeners. This will heal on its own with time. #3: I am uncertain as to the reason that you have the blood in your urine. With your normal renal function I do not feel that there is anything emergent that needs to be done now, however you do need to follow-up closely with your primary care provider in the next 1 to 2 weeks for repeat labs to see if your kidney function is changing, or the bleeding is continuing. We will also place a referral with urology to be reassessed for potential cystoscopy to evaluate for sources of the blood. If you notice any worsening of your symptoms, or any new symptoms such as vomiting, diarrhea, fever, chills, shortness of breath, chest pain, numbness, weakness, or fainting , please return immediately to the emergency department for reevaluation. Please follow up with your primary care provider as soon as possible for reassessment and reevaluation. As always, it was a pleasure participating in your medical care today. Stand Alone Forms: Work Release Referrals: Jose Antonio Rossi MD [ [facility] STAFF PHYSICIAN] - Rosalia Damon [Primary Care Provider] - Discharge Data Discharge Date/Time-TO BE ENTERED AT DEPARTURE: 06/01/19 19:40 Medical Decision Making This is a 53-year-old male with a past medical history of left nephrectomy secondary to multiple renal cysts, followed by diagnosis in August of a notable mass on his right kidney, with secondary partial nephrectomy at [facility] in November, who presents today for evaluation of groin and right lower quadrant abdominal pain. As well as rectal pain. Patient states that 4 days ago after a slightly hard bowel movement he had a tearing searing sharp pain in his rectum. He had no blood at that time. And continues to have no blood. Currently he has continued pain every time that he has a bowel movement in regards to this. In addition to this 1 of his family members jumped on his lower abdomen a few days ago, which is since because lower abdominal pain. He denies any nausea or vomiting. He denies any upper abdominal pain. He denies any chest pain or shortness of breath. He denies any dysuria or hematuria. He did go see his primary care provider earlier, and there was evidence of a small amount of blood noted in the urine microscopically. Currently the patient has no other complaints. He denies any other modifying factors. He is notably refusing any pain medications at this time. Physical exam is relatively unremarkable, mild suprapubic tenderness, patient also has notable pain on digital rectal exam. Concerning for anal fissure with evidence of small anal fissure. No active bleeding at this time. Differential is broad, but does include kidney pathology, kidney stone, urinary tract infection. Laboratory work-up was pursued, minimal white count, however no fever or tachycardia whatsoever. No clinical evidence of significant infection. No bandemia. Electrolytes normal, renal function is excellent. Liver function normal, lipase is unexpectedly elevated at 629. However the patient is able to tolerate p.o. well, and has had no nausea or vomiting. Urinalysis shows no signs of infection but there is mild to moderate amount of RBCs in the urine. CT scan shows no evidence of significant acute process. No evidence of severe pancreatitis, no evidence of renal abnormality, no signs of kidney stone at this time. Signs and symptoms at this time are clinically consistent with a mild anal fissure for which will recommend continued [id number] remedies for maintaining soft stools, we will give Anusol suppositories and recommend sitz baths. In addition to this with him tolerating the elevated lipase well, and I see no indication for admission for continued IV hydration. Recommend continued mild diet, avoiding any significant the potentially exacerbating food items for mild pancreatitis. In regard to the hematuria his hemoglobin is stable, and with no evidence of significant abnormality on CT scan or other lab abnormality I see no indication for emergent urology referral or cystoscopy. Especially no evidence of gross hematuria. We will recommend outpatient follow-up with urology for further evaluation for hematuria especially in light of his previous nephrectomies. Also will recommend close follow-up with his PCP in the next week for repeat labs and repeat urinalysis to evaluate for continuing potential microscopic hematuria. Mild cystitis is certainly on the differential but less likely as he has no symptoms of urinary hesitancy, dysuria or frequency. Patient continues to refuse any medications for pain, states that he feels fine with the pain that is currently present. We did offer multiple other options, he feels content with where he is currently a. Discussed red flags which to return. I have extensively reviewed the treatment plan and discharge instructions with the patient. I have addressed all patient concerns at this time. The patient was made aware of what symptoms to monitor for that would warrant a return to the emergency department. Discussed the plan with the patient, they demonstrate verbal understanding and agreement with our assessment and plan at this time. FINDINGS: Lungs: There are benign, calcified pulmonary granulomas. Liver: No hepatic masses on noncontrast imaging. A benign-appearing left hepatic probable cyst similar to prior. Gallbladder and bile ducts: No calcified stones. No ductal dilation. Pancreas: No ductal dilation. No masses. Spleen: Small splenic calcifications compatible with benign granulomata. Adrenals: No mass. Kidneys and ureters: The inferior right renal mass is no longer seen, not optimally assessed on noncontrast imaging however appears likely resected. The left kidney is surgically absent. No hydronephrosis or stones. No ureteral stones are seen. Stomach and bowel: Diverticulosis of the sigmoid colon. No diverticulitis. No focal pathology in the remainder of the colon. No focal pathology in the small bowel. Appendix: No evidence of appendicitis. Intraperitoneal space: No free air. No significant fluid collection. Vasculature: A stable mild dilation of the infrarenal aorta associated with mild atherosclerosis. Lymph nodes: No significantly enlarged lymph nodes. Bladder: Unremarkable as visualized. Reproductive: Unremarkable as visualized. Bones/joints: No acute fracture or subluxation. Soft tissues: No suspcious lesions. IMPRESSION: 1. No acute findings. 2. Incidental findings as described. Dictated and Authenticated by: Saima Hollis MD. Ordering:NELDA Elkins MD [facility] General Date/Time Provider Initiated Documentation: 06/01/19 17:10 . HPI Narrative: This is a 53-year-old male with a past medical history of left nephrectomy secondary to multiple renal cysts, followed by diagnosis in August of a notable mass on his right kidney, with secondary partial nephrectomy at [facility] in November, who presents today for evaluation of groin and right lower quadrant abdominal pain. As well as rectal pain. Patient states that 4 days ago after a slightly hard bowel movement he had a tearing searing sharp pain in his rectum. He had no blood at that time. And continues to have no blood. Currently he has continued pain every time that he has a bowel movement in regards to this. In addition to this 1 of his family members jumped on his lower abdomen a few days ago, which is since because lower abdominal pain. He denies any nausea or vomiting. He denies any upper abdominal pain. He denies any chest pain or shortness of breath. He denies any dysuria or hematuria. He did go see his primary care provider earlier, and there was evidence of a small amount of blood noted in the urine microscopically. Currently the patient has no other complaints. He denies any other modifying factors. He is notably refusing any pain medications at this time. Related Data Home Medications Medication Instructions Recorded Confirmed acetaminophen [Tylenol] 650 mg PO Q4H PRN PRN #30 tab 05/07/17 06/01/19 naproxen sodium [Aleve] 440 mg PO Q4H PRN #30 05/07/17 06/01/19 hydrocortisone acetate [Anusol-HC] 25 mg MA BID #24 each 06/01/19 Previous Rx's Medication Instructions Recorded acetaminophen [Tylenol] 650 mg PO Q4H PRN PRN #30 tab 05/07/17 naproxen sodium [Aleve] 440 mg PO Q4H PRN #30 05/07/17 hydrocortisone acetate [Anusol-HC] 25 mg MA BID #24 each 06/01/19 Allergies Allergy/AdvReac Type Severity Reaction Status Date / Time meloxicam Allergy Mild Unverified 06/01/19 17:30 Penicillins Allergy Mild Hives Unverified 06/01/19 17:30 tramadol [From Ultram] AdvReac Intermediate Nausea, Unverified 06/01/19 17:30 vomiting General Stated Complaint: Abd Prob DRU: 3 Review of Systems All systems reviewed & are unremarkable except as noted in HPI and below PFSH Family History (Updated 04/08/17 @ 09:33 by Elba Denson MD) Other Bronchitis Heart disease Lymphoma Melanoma Thyroid cancer Social History Smoking/Tobacco Use Status: Current every day Tobacco Type: cigarettes Alcohol Intake: never Drug use: Daily Substance use type: marijuana Do you feel safe at home: Yes Do you feel safe in your relationship?: Yes Exam Narrative Exam Narrative: 1.Const: Well-nourished, Well-developed, appearing stated age 2.Eyes: PERRL, no conjunctival injection, and symmetrical lids. 3.ENT: Atraumatic external nose and ears. Moist MM. Neck: Symmetric, trachea midline, No thyromegaly. 4.CVS: +S1/S2, No murmurs or gallops. Peripheral pulses 2+ and equal in all extremities. Brisk capillary refill in all extremities. 5.RESP: Unlabored respiratory effort. Clear to auscultation bilaterally. No wheezes rales or rhonchi 6.GI: Soft,Nondistended, No hepatosplenomegaly. No guarding or rebound. Minimal tenderness in the lower abdominal region midline, no guarding or rebound though. No pain at McBurney's point, negative Lozano sign. Postsurgical sites are unremarkable, evidence of good wound healing throughout. Rectal exam was performed with nurse at bedside, small anal fissure is noted. No active bleeding. No gross blood. Genital exam unremarkable, normal testicles. Normal penis. 7.MSK: Normocephalic/Atraumatic, Extremities w/o deformity or ttp No cyanosis or clubbing, Normal movement of all extremities 8.Skin: Warm, Dry. No rashes or lesions. 9.Neuro: phlebotomy lab assistant II-XII grossly intact. Sensation grossly intact, no focal neurologic deficits. 10.Psych: (AAO) x3. Appropriate mood and affect Course Vital Signs Vital signs: Vital Signs Temperature 36.8 C 06/01/19 17:07 Pulse 79 06/01/19 17:07 Respiratory Rate 20 06/01/19 17:07 Blood Pressure 123/76 06/01/19 17:07 Pulse Oximetry 98 06/01/19 17:07 Temperature 36.8 C 06/01/19 17:07 Temperature Source Temporal Artery Scan 06/01/19 17:07 Pulse 79 06/01/19 17:07 Respiratory Rate 20 06/01/19 17:07 Blood Pressure 123/76 06/01/19 17:07 Blood Pressure Position Sitting 06/01/19 17:07 Pulse Oximetry 98 06/01/19 17:07 Oxygen Delivery Method Room Air 06/01/19 17:07 Oxygen Flow Rate 0 06/01/19 17:07 Pain Level 4 06/01/19 17:07
[2019-06-01 17:31] LABS: Abs Immature Grans 0.03 k/cumm (0.0-0.09); Absolute Basophil Count 0.04 k/cumm (0.0-0.2); Absolute Eosinophil Count 0.26 k/cumm (0.0-0.7); Absolute Lymphocyte Count 2.25 k/cumm (1.2-3.4); Absolute Monocyte Count 1.12 k/cumm (0.11-0.7); Absolute Neutrophil Count 10.65 k/cumm (1.2-6.7); Basophils % 0.3; Eosinophils % 1.8; HCT 46.5 % (40.0-50.0); Immature Grans % 0.2 %; Lymphocytes % 15.7; Mean Corp. HGB Concentration 34.4 g/dL (32.0-36.0); Mean Corpuscular Hemoglobin 30.7 pg (27.0-33.0); Mean Corpuscular Volume 89.3 fL (80-95); Monocytes % 7.8; Neutrophils % 74.2; Platelet Count 375 x1000/uL (130-400); RBC 5.21 m/cumm (4.50-6.00); RBC Distribution Width 13.6 % (11.8-14.1); White Blood Cell Count 14.35 k/cumm (4.4-10.8)
[2019-06-01 17:49] LABS: Lipase 629 U/L (73-393)
[2019-06-01 17:50] LABS: ALT 22 U/L (16-63); AST 21 U/L (15-37); Albumin 4.1 g/dL (3.4-5.0); Alkaline Phosphatase 82 U/L (46-116); Anion Gap 7.9 mmol/L (3-11); BUN 17 mg/dL (7-18); Bilirubin, Total 0.4 mg/dL (0.2-1.0); CO2 28.1 mmol/L (21.0-32.0); Chloride 101 mmol/L (98-107); Glucose 89 mg/dL (74-106); Potassium 4.1 mmol/L (3.5-5.1); Sodium 137 mmol/L (136-145); Total Protein 7.8 g/dL (6.4-8.2)
[2019-06-01 17:59] LABS: CREATININE 1.15 mg/dL (0.70-1.30); Calcium 9.1 mg/dL (8.5-10.1)
--- NOTE | 2019-06-01 18:11 | DI.VRAD_ITS ---
PROCEDURE INFORMATION: Exam: CT Abdomen And Pelvis Without Contrast Exam date and time: 06/01/2019 17:26 Age: 53 years old Clinical indication: Abdominal tenderness and other: Rlq abdominal pain and flank pain w/ hematuria; Prior surgery; Surgery date: 6+ months; Surgery type: Kidney removed; Patient HX: History of CA TECHNIQUE: Imaging protocol: Computed tomography of the abdomen and pelvis without contrast. Radiation optimization: All CT scans at this facility use at least one of these dose optimization techniques: automated exposure control; mA and/or kV adjustment per patient size (includes targeted exams where dose is matched to clinical indication); or iterative reconstruction. COMPARISON: CT ABDOMEN PELVIS W 08/19/2018 13:26 FINDINGS: Lungs: There are benign, calcified pulmonary granulomas. Liver: No hepatic masses on noncontrast imaging. A benign-appearing left hepatic probable cyst similar to prior. Gallbladder and bile ducts: No calcified stones. No ductal dilation. Pancreas: No ductal dilation. No masses. Spleen: Small splenic calcifications compatible with benign granulomata. Adrenals: No mass. Kidneys and ureters: The inferior right renal mass is no longer seen, not optimally assessed on noncontrast imaging however appears likely resected. The left kidney is surgically absent. No hydronephrosis or stones. No ureteral stones are seen. Stomach and bowel: Diverticulosis of the sigmoid colon. No diverticulitis. No focal pathology in the remainder of the colon. No focal pathology in the small bowel. Appendix: No evidence of appendicitis. Intraperitoneal space: No free air. No significant fluid collection. Vasculature: A stable mild dilation of the infrarenal aorta associated with mild atherosclerosis. Lymph nodes: No significantly enlarged lymph nodes. Bladder: Unremarkable as visualized. Reproductive: Unremarkable as visualized. Bones/joints: No acute fracture or subluxation. Soft tissues: No suspcious lesions. IMPRESSION: 1. No acute findings. 2. Incidental findings as described. Dictated and Authenticated by: Saima Hollis MD. Ordering:NELDA Elkins MD
[2019-06-01] MEDS: Normal Saline 500 ML IV (18:12)
[2019-06-01] MEDS: Normal Saline Flush 10 ML SYR IVP (18:13)
[2019-06-01 18:34] LABS: Bilirubin Negative (Negative); Blood Moderate (Negative); Clarity Clear (Clear); Glucose Negative (Negative); Ketones Negative (Negative); Leukocyte Esterase Negative (Negative); Nitrite Negative (Negative); Urobilinogen 0.2 EU/dL (Up TO 0.2)
[2019-06-01 18:42] LABS: Bacteria Negative HPF (Negative); C & S Indicated? No; Crystals Negative HPF (Negative); Epithelial Cells Negative HPF (Negative); Mucus Negative (Negative); RBC >50 HPF (0-2); WBC Negative HPF (0-5)
[2019-06-01 19:40] VITALS: BP 132/88; PULSE 61; RESP 16; TEMP 36.4; O2SAT 98
== END 2019-06-01 19:40 | disposition home or self-care (01) ==
PROVIDERS: Emergency Provider Student in an Organized Health Care Education/Training Program; PCP Nurse Practitioner Family
DX: K60.0 Acute anal fissure (principal); R31.9 Hematuria, unspecified; K85.90 Acute pancreatitis without necrosis or infection, unspecified; Z90.5 Acquired absence of kidney
CPT/HCPCS: 36415; 80053; 83690; 96360; 99284; 74176; 81003; 81015; 85025

== ENCOUNTER 2019-08-03 11:46 | Outpatient (REF) | payer OTHER, SELFPAY ==
[2019-08-03 15:28] LABS: ALT 24 U/L (16-63); AST 20 U/L (15-37); Alkaline Phosphatase 76 U/L (46-116); Anion Gap 8.1 mmol/L (3-11); BUN 17 mg/dL (7-18); Bilirubin, Total 0.4 mg/dL (0.2-1.0); CO2 26.9 mmol/L (21.0-32.0); CREATININE 1.06 mg/dL (0.70-1.30); Calcium 9.4 mg/dL (8.5-10.1); Chloride 102 mmol/L (98-107); Glucose 82 mg/dL (74-106); Lipase 300 U/L (73-393); Potassium 4.3 mmol/L (3.5-5.1); Sodium 137 mmol/L (136-145); Total Protein 7.2 g/dL (6.4-8.2)
[2019-08-04 10:43] LABS: Hepatitis C Ab w Rflx HCV PCR Negative (Negative)
[2019-08-04 10:44] LABS: Hepatitis B Surface Ag Negative (Negative)
== END 2019-08-03 12:06 ==
LOC: NCHCN 11:46
PROVIDERS: PCP Nurse Practitioner Family; Visit Provider Nurse Practitioner Family
DX: R74.8 Abnormal levels of other serum enzymes (principal); R10.32 Left lower quadrant pain; K60.2 Anal fissure, unspecified; R39.11 Hesitancy of micturition; Z11.59 Encounter for screening for other viral diseases
CPT/HCPCS: 80053; 83690; 86803; 87340

== ENCOUNTER 2019-08-16 12:10 | Emergency (ER) | payer OTHER, SELFPAY ==
[2019-08-16] VITALS (41 sets, daily range): BP systolic 110–136; BP diastolic 66–92; PULSE 56–91; RESP 13–27; TEMP 35.7; O2SAT 95–100
--- NOTE | 2019-08-16 12:33 | ED.GENADUL_ITS ---
Discharge Plan Disposition Patient Disposition: HOME Condition: Stable Discharge Details Chief Complaint: SOB Clinical Impression: Pre-syncope Primary Care Provider: Rosalia Damon ED Provider: Jennifer Abarca Home Meds and New Rx's Prescriptions: Continued acetaminophen [Tylenol] 325 MG tablet 650 mg PO Q4H PRN PRNQty: 30 RF: 0 naproxen sodium [Aleve] 220 MG capsule 440 mg PO Q4H PRNQty: 30 RF: 0 hydrocortisone acetate [Anusol-HC] 25 mg suppository 25 mg GA BID Qty: 24 RF: 0 Discharge Instructions Instructions: Near Syncope (ED) Additional Instructions: Please return immediately to the emergency department if you develop any new or worsening symptoms, if your condition does not improve as expected, or if you become otherwise concerned. It is extremely important that you call soon as possible to make an appointment to be seen in follow-up for this visit by your primary care doctor. Referrals: Rosalia Damon [Primary Care Provider] - Discharge Data Discharge Date/Time-TO BE ENTERED AT DEPARTURE: 08/16/19 17:21 Medical Decision Making Moo Blanco is a 53 y/o man without reported h/o of major medical problems who presented to the emergency department with episode of lightheadedness and sensation of heartburn while seated, symptoms now resolved. Benign cardiopulmonary and neuro exam. Concern for reflux, arrhythmia, anxiety, other. Doubt ACS, pulmonary embolism. Exam/hx not c/w acute aortic process, sepsis, cerebral vascular accident/TIA. Plan for EKG, screening labs, CXR, telemetry, repeat trop/EKG if initial w/u neg. Labs reviewed, trop neg. Pt remains asymptomatic, feels well. Plan for rpt trop and EKG Rpt trop and EKG okay, Pt has been asymptomatic for entirety of stay in ED. HEART score low. Plan for holter and d/c to home with outpt f/u and stress test (ordered by me). I had a a lengthy discussion with the Pt re: RTED precautions, importance of outpt f/u, home care. Pt verbalized understanding of the plan and was amenable. All questions answered. Pt was d/toni to home with clear plan for outpt f/u. Medical Records Medical records reviewed: Yes I reviewed the patient's medical records. Imaging Data Radiologic Study: Attestation: I personally reviewed and interpreted this imaging study as follows: Radiologist's impression: EXAM: XR PORTABLE CHEST AP CLINICAL HISTORY: pre-syncope. TECHNIQUE: 2D digital imaging was performed. COMPARISON: CR CHEST 2 VIEWS PA,LAT from 02/06/2012 FINDINGS: LUNGS: Clear. No pleural abnormality seen. HEART: Normal. MEDIASTINUM: Normal. OTHER FINDINGS: None. IMPRESSION: No acute pulmonary findings. Lab Data Lab results reviewed: Yes I reviewed the patient's lab results. Labs: Laboratory Tests Range/Units 08/16/19 08/16/19 08/16/19 12:45 12:45 12:45 WBC (4.4-10.8) k/cumm 11.16 H RBC (4.50-6.00) m/cumm 4.95 Hgb (13.5-17.5) g/dL 15.6 Hct (40.0-50.0) % 44.4 MCV (80-95) fL 89.7 MCH (27.0-33.0) pg 31.5 MCHC (32.0-36.0) g/dL 35.1 RDW (11.8-14.1) % 13.4 Plt Count (130-400) x1000/uL 340 MPV (8.0-11.0) fL 9.4 Immature Gran % % 0.2 Neutrophils % 69.5 Lymphocytes % 21.0 Monocytes % 8.1 Eosinophils % 1.0 Basophils % 0.2 Absolute Neutrophils (1.2-6.7) k/cumm 7.76 H Absolute Lymphocytes (1.2-3.4) k/cumm 2.34 Absolute Monocytes (0.11-0.7) k/cumm 0.90 H Absolute Eosinophils (0.0-0.7) k/cumm 0.11 Absolute Basophils (0.0-0.2) k/cumm 0.02 D-Dimer (<500) ng/mlFEU 403 Sodium (136-145) mmol/L 134 L Potassium (3.5-5.1) mmol/L 4.0 Chloride (98-107) mmol/L 99 Carbon Dioxide (21.0-32.0) mmol/L 28.2 Anion Gap (3-11) mmol/L 6.8 BUN (7-18) mg/dL 18 Creatinine (0.70-1.30) mg/dL 1.15 Estimated GFR/1.73 m2 (mL/min/1.73m2) >= 60.00 Glucose (74-106) mg/dL 107 H Calcium (8.5-10.1) mg/dL 9.1 Total Bilirubin (0.2-1.0) mg/dL 0.5 AST (15-37) U/L 22 ALT (16-63) U/L 21 Alkaline Phosphatase (46-116) U/L 74 Troponin I (<0.06) ng/Ml < 0.05 Total Protein (6.4-8.2) g/dL 7.6 Albumin (3.4-5.0) g/dL 4.0 Lipase (73-393) U/L 111 Range/Units 08/16/19 15:45 WBC (4.4-10.8) k/cumm RBC (4.50-6.00) m/cumm Hgb (13.5-17.5) g/dL Hct (40.0-50.0) % MCV (80-95) fL MCH (27.0-33.0) pg MCHC (32.0-36.0) g/dL RDW (11.8-14.1) % Plt Count (130-400) x1000/uL MPV (8.0-11.0) fL Immature Gran % % Neutrophils % Lymphocytes % Monocytes % Eosinophils % Basophils % Absolute Neutrophils (1.2-6.7) k/cumm Absolute Lymphocytes (1.2-3.4) k/cumm Absolute Monocytes (0.11-0.7) k/cumm Absolute Eosinophils (0.0-0.7) k/cumm Absolute Basophils (0.0-0.2) k/cumm D-Dimer (<500) ng/mlFEU Sodium (136-145) mmol/L Potassium (3.5-5.1) mmol/L Chloride (98-107) mmol/L Carbon Dioxide (21.0-32.0) mmol/L Anion Gap (3-11) mmol/L BUN (7-18) mg/dL Creatinine (0.70-1.30) mg/dL Estimated GFR/1.73 m2 (mL/min/1.73m2) Glucose (74-106) mg/dL Calcium (8.5-10.1) mg/dL Total Bilirubin (0.2-1.0) mg/dL AST (15-37) U/L ALT (16-63) U/L Alkaline Phosphatase (46-116) U/L Troponin I (<0.06) ng/Ml < 0.05 Total Protein (6.4-8.2) g/dL Albumin (3.4-5.0) g/dL Lipase (73-393) U/L ECG Data Attestation: I personally reviewed and interpreted this ECG (s) as follows: Interpretation: EKG shows sinus bradycardia at 59, borderline axis, inferior Q waves, nonspecific ST changes aVL, no STEMI, no significant change from prior 03/22, nondiagnostic EKG EKG shows sinus bradycardia 59, borderline axi no major change from prior, nondiagnostic EKG HPI General Mode of arrival: ambulatory . Date/Time Provider Initiated Documentation: 08/16/19 12:33 . Limitations to Documentation: no limitations . Information obtained by: patient, RN notes reviewed and old records reviewed . HPI Narrative: Moo Blanco is a 53-year-old man with a history of rectal fissure, no major medical problems reported or noted in chart presenting to the emergency department with episode of lightheadedness and feeling unwell. Patient reports that he newly has custody of his 3 grandchildren and has been under a fair amount of stress with coronavirus pandemic. Patient reports that he was seated today on a phone call for FMLA when he began to feel lightheaded, developed heartburn, and felt as if he would pass out. Patient reports that he went to stand up and and had no improvement with standing. Patient reports that episode lasted for 10 or 15 minutes. He denies having any pain other than burning feeling in his upper abdomen and central chest consistent with many prior episodes of heartburn. Patient reports other than feeling under stress he has been feeling well and in his usual state of health. He states that he has chronic shortness of breath and cough from being a smoker and intermittent chronic diarrhea that are unchanged from baseline. Contrary to triage note, Pt denies feeling SOB during episode and denies loss of consciousness. He denies fevers, vomiting, numbness, weakness, palpitations. Patient reports that he has had many similar symptoms in the past as what he had today, although he reports that this lasted longer than usual. He states that he has no chest pain or exertional symptoms recently. Has been eating and drinking as usual. Patient reports that he has been self isolating at home, he denies any travel or known sick contacts. Related Data Home Medications Medication Instructions Recorded Confirmed acetaminophen [Tylenol] 650 mg PO Q4H PRN PRN #30 tab 05/07/17 08/16/19 naproxen sodium [Aleve] 440 mg PO Q4H PRN #30 05/07/17 08/16/19 hydrocortisone acetate [Anusol-HC] 25 mg GA BID #24 each 06/01/19 08/16/19 Previous Rx's Medication Instructions Recorded acetaminophen [Tylenol] 650 mg PO Q4H PRN PRN #30 tab 05/07/17 naproxen sodium [Aleve] 440 mg PO Q4H PRN #30 05/07/17 hydrocortisone acetate [Anusol-HC] 25 mg GA BID #24 each 06/01/19 Allergies Allergy/AdvReac Type Severity Reaction Status Date / Time meloxicam Allergy Mild Unverified 08/16/19 12:28 Penicillins Allergy Mild Hives Unverified 08/16/19 12:28 tramadol [From Ultram] AdvReac Intermediate Nausea, Unverified 08/16/19 12:28 vomiting General Stated Complaint: SOB DRU: 2 Review of Systems Narrative: Constitutional: denies fevers Eyes: denies eye pain ENT: denies ear pain, dental pain, sore throat Cardiovascular: denies edema, reports chest pain and lightheadedness as per HPI Respiratory: reports chronic unchanged SOB, cough GI: denies vomiting, reports upper abdominal pain as per HPI, chronic intermittent diarrhea that is unchanged : denies flank pain MSK: denies back pain, neck pain, arthralgias, myalgias Skin: denies rash Neuro: denies headaches, numbness, weakness PFSH Medical History Chronic otitis media of right ear Hearing loss Heart murmur Hx of cataract Tympanic membrane perforation Family History (Updated 04/08/17 @ 09:33 by Elba Denson MD) Other Bronchitis Heart disease Lymphoma Melanoma Thyroid cancer Social History Smoking/Tobacco Use Status: Current every day Tobacco Type: cigarettes Alcohol Intake: never Drug use: Daily Substance use type: marijuana Do you feel safe at home: Yes Do you feel safe in your relationship?: Yes Exam Narrative Exam Narrative: Constitutional: well and [id number], pleasant, conversing normally HENT: head atraumatic/normocephalic/normal inspection, mucous membranes moist Eyes: conjunctiva normal, sclera normal, pupils 3mm b/l Neck: no stridor, normal ROM, trachea midline Chest: normal inspection Resp: normal work of breathing, LCTAB Cardio: normal rate, normal rhythm, no murmur appreciated GI: abdomen soft, non-tender, non-distended Back: normal inspection, no rash Skin: warm, dry, normal color, no rash Neuro: alert, not altered, grossly non-focal, normal tone Ext: no edema, no posterior calf TTP Psych: normal mood, normal affect, normal behavior Course Vital Signs Vital signs: Vital Signs Temperature 35.7 C L 08/16/19 12:25 Pulse 56 L 08/16/19 12:25 Respiratory Rate 18 08/16/19 12:25 Blood Pressure 136/88 08/16/19 12:25 Pulse Oximetry 97 08/16/19 12:25 Temperature 35.7 C L 08/16/19 12:25 Temperature Source Tympanic 08/16/19 12:25 Pulse 56 L 08/16/19 12:25 Respiratory Rate 18 08/16/19 12:25 Blood Pressure 136/88 08/16/19 12:25 Pulse Oximetry 97 08/16/19 12:25 Oxygen Delivery Method Room Air 08/16/19 12:25 Oxygen Flow Rate 0 08/16/19 12:25 Comment 08/16/19 12:25
--- NOTE | 2019-08-16 12:45 | DI.RAD_ITS ---
EXAM: XR PORTABLE CHEST AP CLINICAL HISTORY: pre-syncope. TECHNIQUE: 2D digital imaging was performed. COMPARISON: CR CHEST 2 VIEWS PA,LAT from 02/06/2012 FINDINGS: LUNGS: Clear. No pleural abnormality seen. HEART: Normal. MEDIASTINUM: Normal. OTHER FINDINGS: None. IMPRESSION: No acute pulmonary findings. DATA REPOSITORY: RADIATION DOSE DELIVERED:
[2019-08-16] MEDS: Normal Saline 1,000 ML 1000 ML IV (12:52)
[2019-08-16 12:58] LABS: Abs Immature Grans 0.02 k/cumm (0.0-0.09); Absolute Basophil Count 0.02 k/cumm (0.0-0.2); Absolute Eosinophil Count 0.11 k/cumm (0.0-0.7); Absolute Lymphocyte Count 2.34 k/cumm (1.2-3.4); Basophils % 0.2; HCT 44.4 % (40.0-50.0); HGB 15.6 g/dL (13.5-17.5); Immature Grans % 0.2 %; Mean Corp. HGB Concentration 35.1 g/dL (32.0-36.0); Mean Corpuscular Hemoglobin 31.5 pg (27.0-33.0); Mean Corpuscular Volume 89.7 fL (80-95); Mean Platelet Volume 9.4 fL (8.0-11.0); Monocytes % 8.1; Neutrophils % 69.5; Platelet Count 340 x1000/uL (130-400); RBC 4.95 m/cumm (4.50-6.00); RBC Distribution Width 13.4 % (11.8-14.1); White Blood Cell Count 11.16 k/cumm (4.4-10.8)
[2019-08-16 13:01] LABS: Absolute Neutrophil Count 7.76 k/cumm (1.2-6.7)
[2019-08-16 13:10] LABS: ALT 21 U/L (16-63); AST 22 U/L (15-37); Alkaline Phosphatase 74 U/L (46-116); Anion Gap 6.8 mmol/L (3-11); BUN 18 mg/dL (7-18); Bilirubin, Total 0.5 mg/dL (0.2-1.0); CO2 28.2 mmol/L (21.0-32.0); CREATININE 1.15 mg/dL (0.70-1.30); Chloride 99 mmol/L (98-107); Glucose 107 mg/dL (74-106); Lipase 111 U/L (73-393); Sodium 134 mmol/L (136-145); Total Protein 7.6 g/dL (6.4-8.2)
[2019-08-16 13:15] LABS: Calcium 9.1 mg/dL (8.5-10.1)
[2019-08-16 13:17] LABS: Troponin I < 0.05 ng/Ml (<0.06)
[2019-08-16 13:38] LABS: D-Dimer 403 ng/mlFEU (<500)
[2019-08-16 16:09] LABS: Troponin I < 0.05 ng/Ml (<0.06)
== END 2019-08-16 17:21 | disposition home or self-care (01) ==
PROVIDERS: Emergency Provider Student in an Organized Health Care Education/Training Program; PCP Nurse Practitioner Family
DX: R55 Syncope and collapse (principal); R00.1 Bradycardia, unspecified; R12 Heartburn
CPT/HCPCS: 36415; 80053; 83690; 93005; 96360; 99285; 71045; 84484; 85025; 85379; 93010; 93225

== ENCOUNTER 2019-08-19 13:13 | Outpatient (CLI) | payer OTHER, SELFPAY ==
--- NOTE | 2019-08-19 15:21 | W.HOLTRPT ---
Date of service: 08/19/19 Time of Service: 15:21 Holter Monitor Report Holter Monitor Note: This is a 48-hour Holter monitor ordered for the indication of bradycardia. ?Patient was in normal sinus rhythm for the majority of the recording. (Heart rate varied from 67 to 135 bpm) ?There were 0 episodes of supraventricular tachycardia and rare premature atrial contractions. ?There were 0 episodes of ventricular tachycardia and rare ventricular ectopic beats. ?There were no pauses greater than 3 seconds no evidence of high degree heart block and no episodes of atrial fibrillation.
== END 2019-08-19 13:33 ==
PROVIDERS: PCP Nurse Practitioner Family; Visit Provider Nurse Practitioner Family
DX: R00.2 Palpitations (principal)
CPT/HCPCS: 93226

== ENCOUNTER 2020-08-27 17:48 | Emergency (ER) | payer MEDICAID, SELFPAY ==
[2020-08-27 17:57] VITALS: BP 131/89; PULSE 65; RESP 18; TEMP 36.9; O2SAT 98
[2020-08-27 18:10] LABS: Bilirubin Negative (Negative); Blood Negative (Negative); Clarity Clear (Clear); Glucose Negative (Negative); Ketones Negative (Negative); Leukocyte Esterase Negative (Negative); Nitrite Negative (Negative); Specific Gravity >= 1.030 (1.005-1.025); Urobilinogen 0.2 EU/dL (Up TO 0.2)
--- NOTE | 2020-08-27 18:23 | W.ED.GENAD ---
Discharge Plan Disposition Patient Disposition: HOME Condition: Stable Discharge Details Clinical Impression: Abdominal pain Primary Care Provider: Rosalia Damon ED Provider: Vida Ordaz Home Meds and New Rx's Prescriptions: No Action acetaminophen [Tylenol] 325 MG tablet 650 mg PO Q4H PRN PRNQty: 30 RF: 0 hydrocortisone acetate [Anusol-HC] 25 mg suppository 25 mg NC BID Qty: 24 RF: 0 Discharge Instructions Instructions: Hydrocele (ED), Abdominal Pain (ED) Additional Instructions: Follow up with primary care provider in 3-5 days. Return to ED sooner if any worsening abdominal pain, fever, vomiting or concerns. Increase oral fluids. I will give you a follow-up for general surgery within 1 to 2 weeks please call for an appointment. We placed on a care management list they should be getting in touch due to the possibility a follow-up appointment. Try [id number] fleets enemas or a gentle laxative such as MiraLAX. Referrals: Elba Denson MD [ [facility] STAFF PHYSICIAN] - Rosalia Damon [Primary Care Provider] - Medical Decision Making 54-year-old male presents to the ER with chief complaint of left groin pain and pressure which has been ongoing intermittently for 2 to 3 weeks. He reports some urinary hesitancy, he is able to urinate. He has a past medical history of renal cancer and a nephrectomy on the left and partial nephrectomy on the right. He has been taking Tylenol last earlier today. No abdominal tenderness. Denies any hematochezia or obvious traumatic diarrhea denies any penile discharge or lesions Will order labs to rule out infectious process and to evaluate kidney function. Initially CT abdomen pelvis was ordered however there is an client technologies analyst in-house at this time and change to a scrotum ultrasound to rule out hernia versus torsion. Imaging protocol: Real-time ultrasound of the scrotum and contents with color Doppler and image documentation. Total images: 99 COMPARISON: CT ABDOMEN PELVIS WO 06/01/2019 5:35 PM FINDINGS: Right testicle: Right testicle measures 4.5 x 2.8 cm. No right intratesticular mass. Normal right testicular flow. Left testicle: Left testicle measures 4.3 x 2.9 cm. No left intratesticular mass. Normal left testicular flow. Epididymides: The right epididymis is within normal limits. The left epididymis is within normal except for incidental appendix epididymis measuring up to 4.5 mm. Scrotum: There is a small right hydrocele. Other findings: No inguinal hernia or mass noted in the inguinal regions. IMPRESSION: Small right hydrocele. No evidence of testicular torsion or evidence of acute inflammation CT abdomen pelvis with IV contrast IMPRESSION: 1. Small and large bowel fluid which may be due to a nonspecific enterocolitis. 2. Mild increasing in size 3.4 cm infrarenal abdominal aortic aneurysm. Discussed findings with patient regarding CT results and ultrasound result. Patient verbalized understanding. Patient was not aware of the abdominal aortic aneurysm. I did discuss this with him and red flags to watch for. I will refer patient to general surgery as outpatient, did discuss stool softeners, trying fleets enemas [id number]. I offered dicyclomine or similar patient declined at this time. Patient states that he has not seen his PCP in quite a while. I will order outpatient stool sample and encourage PCP follow-up or return to ED for any worsening. Differential diagnosis includes enterocolitis, early ileus or bowel obstruction, gastroenteritis, inguinal hernia, testicular torsion, BPH HPI General Mode of arrival: ambulatory. Date/Time Provider Initiated Documentation: 08/27/20 17:57. Limitations to Documentation: no limitations. Information obtained by: patient. HPI Narrative: 54-year-old male presents to the ER with chief complaint of left groin pain and pressure which has been ongoing intermittently for 2 to 3 weeks. He reports some urinary hesitancy, he is able to urinate. He has a past medical history of renal cancer and a nephrectomy on the left and partial nephrectomy on the right. He has been taking Tylenol last earlier today. No abdominal tenderness. Denies any hematochezia or obvious traumatic diarrhea denies any penile discharge or lesions Related Data Home Medications Medication Instructions Recorded Confirmed acetaminophen [Tylenol] 650 mg PO Q4H PRN PRN #30 tab 05/07/17 08/27/20 hydrocortisone acetate [Anusol-HC] 25 mg NC BID #24 each 06/01/19 08/16/19 Previous Rx's Medication Instructions Recorded acetaminophen [Tylenol] 650 mg PO Q4H PRN PRN #30 tab 05/07/17 hydrocortisone acetate [Anusol-HC] 25 mg NC BID #24 each 06/01/19 Allergies Allergy/AdvReac Type Severity Reaction Status Date / Time meloxicam Allergy Mild Unverified 08/27/20 18:03 Penicillins Allergy Mild Hives Unverified 08/27/20 18:03 tramadol [From Ultram] AdvReac Intermediate Nausea, Unverified 08/27/20 18:03 vomiting General Stated Complaint: Male Reproductive Problem DRU: 2 Review of Systems Narrative: Constitutional: Negative for weight loss, alert and oriented, well groomed, normal body habitus, appears comfortable. HEENT: Denies trauma, headaches, blurry vision, nasal discharge, sore throat, trouble swallowing. Chest: Denies chest pain, palpitations, irregular rhythm, hypertension. Respiratory: Denies Shortness of breath, cough, hemoptysis. GI: Denies nausea, vomiting, positive abdominal pain, diarrhea, reports difficulty having bowel movements but is able to have small bowel movements which she reports is like peanut butter. : Denies dysuria, hematuria, flank pain, rectal bleeding. Neuro: Denies dizziness, blurry vision, weakness, syncope, headache or facial numbness. Hematologic: Denies easy bruising, intolerance to heat or cold, hair loss. [facility] Medical History Chronic otitis media of right ear Hearing loss Heart murmur Hx of cataract Tympanic membrane perforation Surgical History Arthroscopy, Shoulder right ear surgery right ear for otitis media Extraction of cataract left Nephrectomy left side-for cysts (benign) Repair of inguinal hernia (05/07/17) right wrist surgery right- for tendon injury secondary to laceration Family History Other Bronchitis Heart disease Lymphoma Melanoma Thyroid cancer Social History Smoking/Tobacco Use Status: Current every day Tobacco Type: cigarettes Smoking risk assessment performed?: Yes Alcohol Intake: never Drug use: Daily Substance use type: marijuana Do you feel safe at home: Yes Do you feel safe in your relationship?: Yes Exam Narrative Exam Narrative: Constitutional: Alert and oriented x3. Appears stated age. Normal body habitus. Head: Normocephalic, no trauma. Eyes: Pupils PERRLA, Red reflex noted, EOM's intact. Eyelids symmetrical without lesions, discharge, or swelling. ENT: Bilateral TM's WNL, External ear normal to inspection, no mastoid TTP, swelling, or erythema, Nasal turbinates WNL, no nasal discharge. Normal dentition, Posterior pharynx WNL, no exudate. Chest: RRR, Normal S1, S2, distal pulses intact. Resp: Lungs clear to auscultation bilaterally, no wheezes, rales, or rhonchi. Abdomen: Soft, nondistended, tenderness left groin : Witnessed by Rajani staff mechanical engineer, no penile lesions no urethral meatus discharge, testes are soft, no swelling no palpable inguinal hernia no mass. Musculoskeletal: Normal gait, 5/5 strength to all four extremities. Skin: No suspicious rashes or lesions. Capillary refill less than 2 sec. Neurologic: Cranial nerves II-XII intact. Alert and oriented x 3. DTR's intact. Hematologic/Lymphatic: No ecchymosis, no lymphadenopathy. Course Vital Signs Vital signs: Vital Signs Temperature 36.9 C 08/27/20 17:57 Pulse 65 08/27/20 17:57 Respiratory Rate 18 08/27/20 17:57 Blood Pressure 131/89 08/27/20 17:57 Pulse Oximetry 98 08/27/20 17:57 Temperature 36.9 C 08/27/20 17:57 Temperature Source Skin 08/27/20 17:57 Pulse 65 08/27/20 17:57 Respiratory Rate 18 08/27/20 17:57 Respiratory Effort Non-Labored 08/27/20 18:01 Blood Pressure 131/89 08/27/20 17:57 Blood Pressure Position Sitting 08/27/20 17:57 Pulse Oximetry 98 08/27/20 17:57 Oxygen Delivery Method Room Air 08/27/20 17:57 Oxygen Flow Rate 0 08/27/20 17:57 Pain Level 5 08/27/20 17:57 Lab/Test Results Lab/Test Results: Laboratory Tests Range/Units 08/27/20 17:57 Urine Color (Yellow) Yellow Urine Clarity (Clear) Clear Urine pH (5-8) 6.0 Ur Specific [place] (1.005-1.025) >= 1.030 H Urine Protein (Negative) mg/dL Negative Urine Ketones (Negative) mg/dL Negative Urine Blood (Negative) Negative Urine Nitrite (Negative) Negative Urine Bilirubin (Negative) Negative Urine Urobilinogen (Up TO 0.2) EU/dL 0.2 Ur Leukocyte Esterase (Negative) Negative Urine Glucose (Negative) mg/dL Negative
--- NOTE | 2020-08-27 18:30 | DI.US_ITS ---
Exam(s) US SCROTUM EXAM: US SCROTUM CLINICAL HISTORY: Left groin pain, R/O hernia. Torsion TECHNIQUE: Ultrasound of the testes performed using grayscale, color, and Doppler imaging. COMPARISON: US Cardiac from 03/29/2016 FINDINGS: RIGHT HEMISCROTUM: The right testicle exhibits normal size and echo architecture with no evidence of intratesticular mas s. Vascular flow was demonstrated within the right testicle, including arterial waveforms. The epididymis appears unremarkable. There are no epididymal head cysts. Small right hydrocele. No varicocele. LEFT HEMISCROTUM: The left testicle exhibits normal size and echo architecture with no evidence of intratesticular mass . Vascular flow is demonstrated within the left testicle, including arterial waveforms. The epididymis appears unremarkable. There are no epididymal head cysts. Incidental appendix epidid ymis is noted on the left side measuring 4 millimeters. There is no ipsilateral hydrocele or varicocele. IMPRESSION: 1. No evidence of testicular mass nor testicular torsion. 2. There is a small right hydrocele. 3. No varicoceles evident DATA REPOSITORY:
[2020-08-27 18:33] LABS: Abs Immature Grans 0.04 10^3/uL (0.0-0.06); Absolute Basophil Count 0.06 10^3/uL (0.0-0.2); Absolute Eosinophil Count 0.25 10^3/uL (0.0-0.7); Absolute Lymphocyte Count 2.74 10^3/uL (1.2-3.4); Absolute Monocyte Count 0.98 10^3/uL (0.1-0.8); Absolute Neutrophil Count 5.96 10^3/uL (1.2-6.7); Basophils % 0.6; Eosinophils % 2.5; HGB 14.9 g/dL (13.5-17.5); Immature Grans % 0.4; Lymphocytes % 27.3; MCH 31.5 pg (27.0-33.0); MCHC 34.7 % (32.0-36.0); MCV 90.9 fL (80-95); MPV 9.3 fL (8.0-11.0); Monocytes % 9.8; Neutrophils % 59.4; Nucleated RBC 0 %; Platelet Count 366 10^3/uL (130-400); RBC 4.73 10^6/uL (4.36-5.78); RDW 12.5 % (11.8-14.1); RDW-SD 41.6 fL; WBC 10.03 10^3/uL (4.4-10.8)
--- NOTE | 2020-08-27 19:00 | DI.CT_ITS ---
Exam(s) CT ABDOMEN PELVIS W EXAM: CT ABDOMEN PELVIS W CLINICAL HISTORY: Abd pain. TECHNIQUE: Imaging Protocol: Axial computed tomography images with coronal and sagittal reformatted images were created and reviewed CONTRAST MATERIAL: Intravenous: Omnipaque 55cc Oral: None COMPARISON: CT CT ABDOMEN PELVIS WO from 06/01/2019 FINDINGS: VISUALIZED LUNG BASES: No nodules nor pleural effusions evident. Calcified granuloma in the medial r ight lung base is unchanged. ABDOMEN: There is no ascites. LIVER: There are no new focal hepatic lesions evident. The previously described 7 millimeter benign cyst in the left hepatic lobe is unchanged. No focal findings in the right hepatic lobe. GALLBLADDER/BILIARY: No obvious gallbladder pathology. CBD is not dilated. PANCREAS: No evidence of pancreatic mass nor dilatation of the pancreatic duct. SPLEEN: Spleen is not enlarged. No obvious intrasplenic lesions. Splenic and portal veins are paten t. ADRENALS: There are no significant adrenal masses. KIDNEYS:Left kidney is again noted be surgically absent. There is no new abnormal tissue evident in the left renal fossa. In the remaining right kidney there is again noted evidence of partial resecti on lower pole area with no evidence of significant mass in the lower pole nor elsewhere in the right kidney. The right renal vein is patent. No regional lymphadenopathy.. 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 Maximum external diame ter of the abdominal aortic aneurysm is 3.5 cm. Previous measurement was 3 cm. With respect of the right common iliac artery, there is a fusiform aneurysm dilatation with maximum d iameter 1.7 cm. Previously was 1.4 cm. There is no significant dilatation of left common iliac chase ry nor of either external iliac artery and there are no aneurysm evident in either common femoral art arlette. LYMPH NODES:There is no retroperitineal nor paraaortic adenopathy. ABDOMINAL WALL: No evidence of significant anterior abdominal wall hernia. GI: Multiple fluid-filled small bowel loops which exhibit upper normal diameters. No bowel obstructi on. No free air. No abscess. PELVIS: GI: No evidence of appendicitis.No evidence of sigmoid diverticulitis. LYMPH NODES: There is no intrapelvic nor inguinal adenopathy. REPRODUCTIVE: Prostate gland is not enlarged. URINARY BLADDER: No calculi nor obvious masses evident OSSEOUS: No significant osseous lesions. IMPRESSION: 1. Compared to the prior CT scan of May 2019 there is again noted evidence of previous left neph rectomy and partial right nephrectomy. There is no abnormal new tissue in left renal fossa and no ne w findings in the right kidney. Also no new adenopathy nor ascites. 2. There is a fusiform infrarenal abdominal aortic aneurysm which has increased in size from the prev ious study, previously measuring 3 cm and presently measuring 3.5 cm. There has also been increase i n diameter of the right common iliac artery aneurysm, now exhibiting maximum diameter of 1.7 cm; prev iously was 1.4 cm. The left common iliac artery diameter is upper normal. Both external iliac arter ies and common femoral arteries exhibit normal diameters. 3. There are no lytic osseous lesions evident 4. RADIATION DOSE DELIVERED: 483.71mGy.cm Total DLP DATA REPOSITORY: All CT scans at this facility are submitted to the National Radiology Data Registry (NRDR) Dose Index Registry (DIR) with the [employer] (ACR). RADIATION OPTIMIZATION: All CT scans at this facility use at least one of these dose optimization te chniques: automated exposure control; mA and/or kV adjustment per patient size (includes targeted exa ms where dose is matched to clinical indication); or iterative reconstruction.
[2020-08-27 19:05] LABS: ALT 19 U/L (16-63); AST 21 U/L (15-37); Alkaline Phosphatase 84 U/L (46-116); BUN 17 mg/dL (7-18); Bilirubin, Total 0.5 mg/dL (0.2-1.0); CREATININE 1.2 mg/dL (0.70-1.30); Chloride 102 mmol/L (98-107); Glucose 83 mg/dL (74-106); Sodium 140 mmol/L (136-145); Total Protein 7.9 g/dL (6.4-8.2)
[2020-08-27] MEDS: Omnipaque 350 MG/ML 100 ML BTL IV (19:35)
[2020-08-27 19:53] VITALS: BP 127/86; PULSE 74; RESP 16; O2SAT 98
--- NOTE | 2020-08-27 19:58 | DI.VRAD_ITS ---
PROCEDURE INFORMATION: Exam: US Scrotum Exam date and time: 08/27/2020 6:37 PM Age: 54 years old Clinical indication: Other: Testicular pain, groin pain, generalized TECHNIQUE: Imaging protocol: Real-time ultrasound of the scrotum and contents with color Doppler and image documentation. Total images: 99 COMPARISON: CT ABDOMEN PELVIS WO 06/01/2019 5:35 PM FINDINGS: Right testicle: Right testicle measures 4.5 x 2.8 cm. No right intratesticular mass. Normal right testicular flow. Left testicle: Left testicle measures 4.3 x 2.9 cm. No left intratesticular mass. Normal left testicular flow. Epididymides: The right epididymis is within normal limits. The left epididymis is within normal except for incidental appendix epididymis measuring up to 4.5 mm. Scrotum: There is a small right hydrocele. Other findings: No inguinal hernia or mass noted in the inguinal regions. IMPRESSION: Small right hydrocele. No evidence of testicular torsion or evidence of acute inflammation. Dictated and Authenticated by: Zachery Gonzalez MD. Ordering:ANGELO Mcpherson MD
--- NOTE | 2020-08-27 20:11 | DI.VRAD_ITS ---
PROCEDURE INFORMATION: Exam: CT Abdomen And Pelvis With Contrast Exam date and time: 08/27/2020 7:07 PM Age: 54 years old Clinical indication: Other: Abd pain TECHNIQUE: Imaging protocol: Computed tomography of the abdomen and pelvis with contrast. Total images: 1011 Radiation optimization: All CT scans at this facility use at least one of these dose optimization techniques: automated exposure control; mA and/or kV adjustment per patient size (includes targeted exams where dose is matched to clinical indication); or iterative reconstruction. Contrast material: OMNIPAQUE 350; Contrast volume: 55 ml; Contrast route: INTRAVENOUS (IV); COMPARISON: CT ABDOMEN PELVIS WO 06/01/2019 5:35 PM FINDINGS: Lungs: There is a calcified granuloma medially at the right base. Liver: There is an incidental sub cm left hepatic cyst. Gallbladder and bile ducts: No calcified stones, wall thickening or biliary dilatation. Pancreas: No mass or peripancreatic edema. Spleen: Incidental splenic granuloma. Adrenal glands: No adrenal nodule. Kidneys and ureters: Status post a left nephrectomy. No mass seen within the post nephrectomy space. Again noted is scarring and capsular calcification involving the lower pole the right kidney. Stomach and bowel: There is a moderate amount of fluid within the right colon with air-fluid levels. No colonic wall thickening. There multiple nondilated fluid-filled small bowel loops. Appendix: No evidence of appendicitis. Intraperitoneal space: No free air or free fluid. Vasculature: There is a 3.4 cm infrarenal abdominal aortic aneurysm, previously measuring up to 3.1 cm. Moderate thrombus. Lymph nodes: No significant adenopathy. Urinary bladder: No definite bladder wall thickening. Reproductive: Unremarkable as visualized. Bones/joints: No significant bony or joint space abnormality. Soft tissues: Extra-abdominal soft tissues are unremarkable. IMPRESSION: 1. Small and large bowel fluid which may be due to a nonspecific enterocolitis. 2. Mild increasing in size 3.4 cm infrarenal abdominal aortic aneurysm. Dictated and Authenticated by: Zachery Gonzalez MD. Ordering:ANGELO Mcpherson MD
--- NOTE | 2020-08-27 20:45 | NUR.NOTE ---
Referrals faxed to PCP Rosalia Damon to f/u routinely and to [facility] to f/u 1-2 weeks for abd pain.Nursing Note:
== END 2020-08-27 20:45 | disposition home or self-care (01) ==
PROVIDERS: Emergency Provider Registered Nurse Emergency; PCP Nurse Practitioner Family
DX: R10.32 Left lower quadrant pain (principal); R93.5 Abnormal findings on diagnostic imaging of other abdominal regions, including retroperitoneum; Z85.528 Personal history of other malignant neoplasm of kidney; Z90.5 Acquired absence of kidney
CPT/HCPCS: 36415; 80053; 99285; 74177; 76870; 81003; 85025; 99284; J3490

== ENCOUNTER 2020-10-26 12:10 | Emergency (ER) | payer MEDICAID, SELFPAY ==
[2020-10-26 12:50] VITALS: BP 123/76; PULSE 80; TEMP 37.2; O2SAT 99
[2020-10-26 13:10] LABS: Bilirubin Small (Negative); Blood Negative (Negative); Clarity Clear (Clear); Glucose Negative (Negative); Ketones Trace mg/dL (Negative); Leukocyte Esterase Negative (Negative); Nitrite Negative (Negative); Specific Gravity 1.025 (1.005-1.025); Urobilinogen 0.2 EU/dL (Up TO 0.2)
--- NOTE | 2020-10-26 13:10 | ED.GENADUL_ITS ---
Discharge Plan Disposition Patient Disposition: HOME Condition: Improving Discharge Details Clinical Impression: Lumbago Primary Care Provider: Rosalia Damon ED Provider: Zachery Sampson Home Meds and New Rx's Prescriptions: New prednisone 50 mg tablet 50 mg PO DAILY 5 Days Qty: 5 RF: 0 hydrocodone-acetaminophen 5-325 mg tablet 1 tab PO Q8H PRN (Reason: pain) Qty: 7 RF: 0 Continued acetaminophen [Tylenol] 325 MG tablet 650 mg PO Q4H PRN PRNQty: 30 RF: 0 Discharge Instructions Instructions: Back Pain (ED) Additional Instructions: May use provided hydrocodone as prescribed, as needed for severe or breakthrough pain. Continue your routine medications including Tylenol if needed. Please note that the hydrocodone will contain 325 mg of Tylenol per tablet and you should not double up on Tylenol use. Take prednisone as prescribed. Please follow-up with physical therapy. Return to ER for increasing discomfort, development of weakness or numbness of the legs, or any other acute concerns. Medical Decision Making 54-year-old male presents from home complaining of 2 days of low back and left flank pain that seems to radiate to his groin at times. Denies fall or injury. He has not had any motor weakness or numbness. He has undergone previous left nephrectomy and right partial nephrectomy Patient arrives to the ER afebrile, interactive, with some tenderness of the left flank on percussion. Differential diagnosis includes lumbar disc disease, intra-abdominal process such as inflammatory bowel disease, diverticulitis, right-sided renal or urinary pathology. Patient IV access established, screening labs and urinalysis obtained. He is referred for CT images. After analgesia, patient is improved. His CT images are on remarkable for acute process. Please see the formal report. CBC with normal white count, chemistries reassuring, urinalysis notable for ketones but otherwise unremarkable. Most consistent with mild to moderate lumbar go. I will treat with a burst of prednisone, I have consented the patient for small number of oral narcotic analgesics at home, and I will refer him for outpatient physical therapy. HPI General Mode of arrival: ambulatory . Date/Time Provider Initiated Documentation: 10/26/20 12:31 . Limitations to Documentation: no limitations . Information obtained by: patient . History of Present Illness 54 year old M presents to the emergency department with the chief complaint of Low back pain, described as moderate, Quality is described as dull and constant, and is localized to the back. Patient reports no radiation. Patient started experiencing this day(s) and it has been constant. No relieving factors improve symptom(s), No exacerbating factors reported . Patient notes denies cough, fever/chills and weakness. Patient did receive the following treatments prior to arrival, none Related Data Home Medications Medication Instructions Recorded Confirmed acetaminophen [Tylenol] 650 mg PO Q4H PRN PRN #30 tab 05/07/17 10/26/20 hydrocodone-acetaminophen 1 tab PO Q8H PRN #7 tab 10/26/20 prednisone 50 mg PO DAILY 5 Days #5 tab 10/26/20 Previous Rx's Medication Instructions Recorded acetaminophen [Tylenol] 650 mg PO Q4H PRN PRN #30 tab 05/07/17 hydrocodone-acetaminophen 1 tab PO Q8H PRN #7 tab 10/26/20 prednisone 50 mg PO DAILY 5 Days #5 tab 10/26/20 Allergies Allergy/AdvReac Type Severity Reaction Status Date / Time Penicillins Allergy Severe Anaphylaxis Unverified 10/26/20 13:59 tramadol [From Ultram] AdvReac Intermediate Nausea, Unverified 10/26/20 13:59 vomiting meloxicam AdvReac Mild I just Unverified 10/26/20 13:59 dont like taking it, Im not allergic. General Stated Complaint: FlankPain DRU: 3 Review of Systems Narrative: No fall or injury. No numbness. No incontinence. 6 systems reviewed and otherwise negative. [facility] Medical History Chronic otitis media of right ear Hearing loss Heart murmur Hx of cataract Tympanic membrane perforation Surgical History Arthroscopy, Shoulder right ear surgery right ear for otitis media Extraction of cataract left Nephrectomy left side-for cysts (benign) Repair of inguinal hernia (05/07/17) right wrist surgery right- for tendon injury secondary to laceration Family History Other Bronchitis Heart disease Lymphoma Melanoma Thyroid cancer Social History Smoking/Tobacco Use Status: Current every day Tobacco Type: cigarettes Smoking risk assessment performed?: Yes Alcohol Intake: current Alcohol Intake frequency: holidays/special occasions only Drug use: Daily Substance use type: marijuana Do you feel safe at home: Yes Do you feel safe in your relationship?: Yes Exam Narrative Exam Narrative: GEN: awake, alert, oriented 3. Pleasant, well groomed, interactive. HEAD: Normocephalic, atraumatic ENT: Mucous membranes moist, oropharynx unremarkable, External ear exam unremarkable EYES: PERRL, EOMI NECK: Full ROM, no CONSTANCE, no menigismus CHEST/RESP: Nontender, clear to auscultation bilateral, no wheeze/rhonchi/rales CARDIOVASCULAR: RRR, no murmur, rub hermelindo. 2+ Rad pulse bilateral ABDOMEN: Soft, minimal RLQ pain on palpation, no mass. +Bowel sounds Back: Left flank and lower lumbar tenderness to percussion. No midline tenderness, step-off or deformity. EXT: Full ROM, no edema, no rash. Normal sensation including perirectal sensation and saddle distribution. Motor graded 5 out of 5. Great toe proprioception intact. Neuro: Grossly normal neurologic exam, conversant, interactive. Psych: Speech fluent, thoughts congruent, affect normal Course Vital Signs Vital signs: Vital Signs Temperature 37.2 C 10/26/20 12:50 Pulse 80 10/26/20 12:50 Blood Pressure 123/76 10/26/20 12:50 Pulse Oximetry 99 10/26/20 12:50 Temperature 37.2 C 10/26/20 12:50 Temperature Source Temporal Artery Scan 10/26/20 12:50 Pulse 80 10/26/20 12:50 Blood Pressure 123/76 10/26/20 12:50 Blood Pressure Position Sitting 10/26/20 12:50 Pulse Oximetry 99 10/26/20 12:50 Oxygen Delivery Method Room Air 10/26/20 12:50 Oxygen Flow Rate 0 10/26/20 12:50 Pain Level 10 10/26/20 12:50
--- NOTE | 2020-10-26 13:15 | DI.CT_ITS ---
Exam(s) CT ABDOMEN PELVIS W EXAM: CT ABDOMEN PELVIS W CLINICAL HISTORY: L low back and RLQ pin. TECHNIQUE: Imaging Protocol: Axial computed tomography images with coronal and sagittal reformatted images were created and reviewed CONTRAST MATERIAL: Intravenous: Omnipaque 65cc Oral: None COMPARISON: CT CT ABDOMEN PELVIS W from 08/27/2020 FINDINGS: VISUALIZED LUNG BASES: Calcified granuloma in the medial right lung base posterior basal segment righ t lower lobe again noted. No new concerning findings in the visualized lung bases and no pleural eff usions. ABDOMEN: There is no ascites. LIVER: Small cyst in left hepatic lobe measuring 6-7 millimeters is unchanged. No new focal hepatic findings. No dilatation of intrahepatic ducts. GALLBLADDER/BILIARY: No obvious gallbladder pathology. CBD is not dilated. PANCREAS: No evidence of pancreatic mass nor dilatation of the pancreatic duct. SPLEEN: Spleen is not enlarged. No obvious intrasplenic lesions. Splenic and portal veins are paten t. ADRENALS: There are no significant adrenal masses. KIDNEYS:Again noted is left nephrectomy and partial right nephrectomy. No new obvious masses evident in the left renal fossa which is now occupied by bowel loops.. The appearance of the right kidney p artial nephrectomy site is stable. No new right kidney findings. No hydronephrosis nor hydroureter. No obvious abnormality in the urinary bladder. ABDOMINAL AORTA: Again noted is an a fusiform infrarenal abdominal aortic aneurysm. Maximum external diameter is 3.5 cm With respect of the right common iliac artery, maximum diameter on the present study is 1.7 cm, uncha nged there is no significant dilatation left common iliac artery. No aneurysms the external and inte rnal iliac arteries nor the common femoral arteries. LYMPH NODES:There is no retroperitineal nor paraaortic adenopathy. ABDOMINAL WALL: No evidence of significant anterior abdominal wall hernia. GI: There are multiple loops of fluid filled small bowel in the lower abdomen and pelvis which there is no obvious bowel obstruction. No free air. PELVIS: GI: No evidence of appendicitis.No evidence of sigmoid diverticulitis. LYMPH NODES: There is no intrapelvic nor inguinal adenopathy. REPRODUCTIVE: Prostate not enlarged. URINARY BLADDER: No calculi nor obvious masses evident OSSEOUS: No significant osseous lesions. IMPRESSION: 1. Compared to 08/27/2020 there is again noted and infrarenal abdominal aortic aneurysm maximum exter nal diameter 3.5 cm, unchanged. 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 2. Again noted is evidence of left nephrectomy and partial right nephrectomy. There is no new abnorm al tissue in left renal fossa and the partial nephrectomy site in the right kidney appears unremarkab le and stable. No other focal findings in the remaining right kidney. 3. No evidence of acute inflammatory process in either iliac fossa. 4. Fluid-filled small bowel loops the pelvis again noted no bowel obstruction or free air nor abscess RADIATION DOSE DELIVERED: 473.91mGy.cm Total DLP DATA REPOSITORY: All CT scans at this facility are submitted to the National Radiology Data Registry (NRDR) Dose Index Registry (DIR) with the [employer] (ACR). RADIATION OPTIMIZATION: All CT scans at this facility use at least one of these dose optimization te chniques: automated exposure control; mA and/or kV adjustment per patient size (includes targeted exa ms where dose is matched to clinical indication); or iterative reconstruction.
[2020-10-26 13:19] LABS: WBC 0-2 HPF (0-5)
[2020-10-26 13:20] LABS: Bacteria Rare HPF (Negative); C & S Indicated? No; Casts Negative LPF (Negative); Crystals Negative HPF (Negative); Epithelial Cells Few HPF (Negative); Mucus Moderate (Negative); RBC 0-2 HPF (0-2)
[2020-10-26] MEDS: Normal Saline 1,000 ML 1000 ML IV (13:24)
[2020-10-26] MEDS: HYDROmorphone 2 MG/ML VIAL 0.5 MG IVP (13:24)
[2020-10-26] MEDS: Ondansetron 4 MG/2 ML VIAL IVP (13:25)
[2020-10-26] MEDS: Ketorolac 30 MG/ML VIAL IVP (13:25)
[2020-10-26 13:28] LABS: Abs Immature Grans 0.04 10^3/uL (0.0-0.06); Absolute Basophil Count 0.04 10^3/uL (0.0-0.2); Absolute Eosinophil Count 0.01 10^3/uL (0.0-0.7); Absolute Lymphocyte Count 1.34 10^3/uL (1.2-3.4); Absolute Monocyte Count 1.12 10^3/uL (0.1-0.8); Absolute Neutrophil Count 7.04 10^3/uL (1.2-6.7); Basophils % 0.4; Eosinophils % 0.1; HCT 47.5 % (40.0-50.0); Immature Grans % 0.4; MCHC 33.7 % (32.0-36.0); MPV 9.4 fL (8.0-11.0); Monocytes % 11.7; Neutrophils % 73.4; Nucleated RBC 0 %; Platelet Count 270 10^3/uL (130-400); RBC 5.34 10^6/uL (4.36-5.78); RDW 13.2 % (11.8-14.1); RDW-SD 43.2 fL; WBC 9.59 10^3/uL (4.4-10.8)
[2020-10-26 13:36] LABS: ALT 20 U/L (16-63); AST 20 U/L (15-37); Albumin 3.8 g/dL (3.4-5.0); Alkaline Phosphatase 84 U/L (46-116); Anion Gap 8.7 mmol/L (3-11); BUN 15 mg/dL (7-18); Bilirubin, Total 0.5 mg/dL (0.2-1.0); CO2 27.3 mmol/L (21.0-32.0); CREATININE 1.1 mg/dL (0.70-1.30); Calcium 9.2 mg/dL (8.5-10.1); Chloride 100 mmol/L (98-107); Glucose 95 mg/dL (74-106); Potassium 4.3 mmol/L (3.5-5.1); Sodium 136 mmol/L (136-145); Total Protein 7.9 g/dL (6.4-8.2)
[2020-10-26] MEDS: Normal Saline - Diluent 50 ML VIAL IV (14:15)
[2020-10-26] MEDS: Omnipaque 350 MG/ML 100 ML BTL IV (14:15)
[2020-10-26 15:04] VITALS: BP 112/72; PULSE 88; RESP 20; O2SAT 96
[2020-10-26] MEDS: HYDROcodone 5/Acetaminophen 325 TAB PO (15:51)
[2020-10-26] MEDS: predniSONE 20 MG TAB 60 MG PO (15:51)
== END 2020-10-26 15:47 | disposition home or self-care (01) ==
PROVIDERS: Emergency Provider Emergency Medicine; PCP Nurse Practitioner Family
DX: M54.5 Low back pain (principal); R10.9 Unspecified abdominal pain
CPT/HCPCS: 36415; 80053; 96361; 96374; 96375; 99285; 74177; 81003; 81015; 85025; 99284; J1885; J2405; J3490; J7512

== ENCOUNTER 2020-11-06 20:52 | Outpatient (REF) | payer MEDICAID, SELFPAY ==
[2020-11-06 20:40] LABS: Abs Immature Grans 0.09 10^3/uL (0.0-0.06); Absolute Basophil Count 0.08 10^3/uL (0.0-0.2); Absolute Eosinophil Count 0.18 10^3/uL (0.0-0.7); Absolute Lymphocyte Count 2.16 10^3/uL (1.2-3.4); Absolute Neutrophil Count 9.44 10^3/uL (1.2-6.7); Basophils % 0.6; Eosinophils % 1.4; HCT 43.6 % (40.0-50.0); HGB 14.5 g/dL (13.5-17.5); Immature Grans % 0.7; Lymphocytes % 16.5; MCH 30.2 pg (27.0-33.0); MCHC 33.3 % (32.0-36.0); MCV 90.8 fL (80-95); MPV 8.8 fL (8.0-11.0); Monocytes % 8.6; Neutrophils % 72.2; Nucleated RBC 0 %; RDW 13.2 % (11.8-14.1); RDW-SD 44.4 fL; WBC 13.08 10^3/uL (4.4-10.8)
[2020-11-06 20:47] LABS: ESR 31 mm/hr (0-20)
[2020-11-06 20:48] LABS: Absolute Monocyte Count 1.12 10^3/uL (0.1-0.8); Platelet Count 500 10^3/uL (130-400)
[2020-11-06 21:33] LABS: ALT 25 U/L (16-63); AST 20 U/L (15-37); Albumin 3.6 g/dL (3.4-5.0); Alkaline Phosphatase 77 U/L (46-116); Anion Gap 11.8 mmol/L (3-11); BUN 15 mg/dL (7-18); Bilirubin, Total 0.4 mg/dL (0.2-1.0); C-Reactive Protein 0.76 mg/dL (0.0-0.3); CO2 25.2 mmol/L (21.0-32.0); CREATININE 1.1 mg/dL (0.70-1.30); Calcium 9.1 mg/dL (8.5-10.1); Chloride 101 mmol/L (98-107); Glucose 117 mg/dL (74-106); Potassium 4.3 mmol/L (3.5-5.1); Sodium 138 mmol/L (136-145); Total Protein 7.1 g/dL (6.4-8.2)
[2020-11-08 11:30] LABS: Lyme Ab w Rflx to Lyme Confirm Positive (Negative)
[2020-11-08 12:56] LABS: Lyme IgG Ab Positive (Negative); Lyme IgM Ab Positive (Negative)
[2020-11-09 01:02] LABS: Anaplasma phagocytophilum Negative (Negative); B. miyamotoi PCR Negative (Negative); Babesia divergens/MO-1 Negative (Negative); Babesia duncani Negative (Negative); Babesia microti Negative (Negative); Ehrlichia chaffeensis Negative (Negative); Ehrlichia ewingii/canis Negative (Negative); Ehrlichia muris eauclairensis Negative (Negative)
== END 2020-11-06 20:53 | disposition home or self-care (01) ==
LOC: LBN 20:52
PROVIDERS: PCP Nurse Practitioner Family; Visit Provider Nurse Practitioner Family
DX: R21 Rash and other nonspecific skin eruption (principal); M25.59 Pain in other specified joint
CPT/HCPCS: 80053; 85652; 86617; 87798; 85025; 86140; 86618

== ENCOUNTER 2021-09-11 12:05 | Emergency (ER) | payer MEDICAID, SELFPAY ==
--- NOTE | 2021-09-11 12:00 | RT.EKG_ITS ---
APPROVED REPORT Exam: Resting ECG Reason for Exam: CHEST PAIN Patient Location: E HR:77 bpm ECG Measurements Heart Rate 77 AXIS NH 141 P 75 QRSd 79 QRS 33 QT 376 T 86 QTc 427 Conclusion Sinus rhythm Probable left atrial enlargement. Inferior Q >35mS, II III aVF Nonspecific T abnormalities, lateral leads...T <-0.10mV, I aVL V5 V6
[2021-09-11 12:07] VITALS: BP 118/81; PULSE 82; RESP 16; TEMP 36.6; O2SAT 98
--- NOTE | 2021-09-11 12:18 | ED.GENADUL_ITS ---
Discharge Plan Disposition Patient Disposition: HOME Condition: Stable Discharge Details Clinical Impression: Myalgia, Fatigue Primary Care Provider: Rosalia Damon ED Provider: Vida Ordaz Home Meds and New Rx's Prescriptions: No Action acetaminophen [Tylenol] 325 MG tablet 650 mg PO Q4H PRN PRNQty: 30 0RF Discharge Instructions Instructions: Musculoskeletal Pain (ED), Fatigue (ED) Additional Instructions: Please follow-up with your primary care provider within the next 1 to 2 weeks. At this time there is no evidence of acute cardiac event or heart attack. No ev idence for pancreatitis. If you do have Lyme disease this could be a flareup of the Lyme. Please discuss this with your PCP. Please take Tylenol or Ibuprofen Do Not take more than 1 tablet (200 mg) of ibuprofen with food every 4-6 hours as needed for pain and swelling. Referrals: Rosalia Damon [Primary Care Provider] - 1 week (Please Call to Make Appt) Timothy Carvajal MD [ [facility] STAFF PHYSICIAN] - 2 weeks (Call to establish care) Discharge Data Discharge Date/Time-TO BE ENTERED AT DEPARTURE: 09/11/21 14:42 Medical Decision Making In short patient is a 55-year-old male presents to the ER with all over body pain, joint pain left upper quadrant pain chest pressure for a week. Cardiac work-up ordered including serial troponins, recommend 4 mg aspirin, chest x-ray, COVID swab as patient is vaccinated. On initial exam he is having some left upper quadrant tenderness with palpation. He does have a history of pancreatitis, lipase added on the labs. Patient has never had a heart catheterization he does have a left nephrectomy and a right partial nephrectomy does endorse marijuana. He reports left shoulder pain is 3 out of 10 is worse with moving. Upon further questioning patient reports that he was diagnosed with Lyme disease approximately a year ago and was treated at that time. Since then he has had increased pain with ambulation to his bilateral lower extremities. He has not seen his PCP in approximately 2 years. CBC shows a blood cell count 11.91, absolute neutrophils 8.36, monocytes 1.21, sodium 135, BUN/creatinine within normal limit, liver enzymes within normal limits initial troponin within normal limits. GI cocktail ordered. 1340: Lipase within normal limits. Due to patient's length of symptoms for chest pressure x 1 week second troponin canceled. Discussed results with patient, patient was placed on a follow-up list for PCP. I did discuss home care he verbalized understanding. Discussed strict return instructions. This text was generated using [employer] system, please disregard any oddities of phrase or misspellings. Medical Records Medical records reviewed: Yes I reviewed the patient's medical records. Medical records narrative: Date of study: 03/29/2016 ? Transthoracic Echocardiography M-mode, complete 2D, complete spectral Doppler, and color Doppler *STUDY CONCLUSIONS* Summary: 1. Left ventricle: The cavity size was below normal. Wall thickness was ?? normal. Systolic function was normal. The estimated ejection fraction ?? was 60-65%. Wall motion was normal; there were no regional wall ?? motion abnormalities. 2. Mitral valve: Mildly calcified annulus. There was mild regurgitation. 3. Right ventricle: The cavity size was normal. Wall thickness was ?? normal. Systolic function was normal. HPI General Mode of arrival: ambulatory . Date/Time Provider Initiated Documentation: 09/11/21 12:06 . Limitations to Documentation: no limitations . Information obtained by: patient, RN notes reviewed and old records reviewed . HPI Narrative: 55-year-old male presents to the ER with chief plaint of chest pressure, bilateral shoulder pain and neck stiffness which has been ongoing for the last week. He reports that he is got some chest pressure which is relieved when he sits down intermittently. He denies having any chest pressure at this time. He is unvaccinated for COVID. He has been taking Tylenol at home for the joint pain with little to no relief. He denies any shortness of breath cough lower extremity swelling. Past medical history includes rectal fissure, hematuria, pancreatitis, abdominal pain, lumbar, heart murmur surgical history includes nephrectomy, wrist surgery, shoulder arthroscopy, Related Data Home Medications Medication Instructions Recorded Confirmed acetaminophen 325 mg tablet 650 mg PO Q4H PRN PRN #30 tabs 05/07/17 09/11/21 (Tylenol) Previous Rx's Medication Instructions Recorded acetaminophen 325 mg tablet 650 mg PO Q4H PRN PRN #30 tabs 05/07/17 (Tylenol) Allergies Allergy/AdvReac Type Severity Reaction Status Date / Time Penicillins Allergy Severe Anaphylaxis Unverified 09/11/21 12:11 tramadol [From Ultram] AdvReac Intermediate Nausea, Unverified 09/11/21 12:11 vomiting meloxicam AdvReac Mild I just Unverified 09/11/21 12:11 dont like taking it, Im not allergic. General Stated Complaint: GenMedical DRU: 3 Review of Systems All systems reviewed & are unremarkable except as noted in HPI and below Cardiovascular Cardiovascular: Reports as per HPI, Reports chest pain (Chest pressure) and Denies dyspnea Respiratory Respiratory: Denies cough and Denies dyspnea PFSH All Active Problems (Updated 09/11/21 @ 13:59 by Vida Ordaz) Rectal fissure (Acute) Hematuria (Acute) Pancreatitis (Chronic) Abdominal pain (Acute) Lumbago (Acute) Myalgia (Acute) Fatigue (Acute) Medical History Chronic otitis media of right ear Hearing loss Heart murmur Hx of cataract Tympanic membrane perforation Surgical History Arthroscopy, Shoulder right ear surgery right ear for otitis media Extraction of cataract left Nephrectomy left side-for cysts (benign) Repair of inguinal hernia (05/07/17) right wrist surgery right- for tendon injury secondary to laceration Family History Other Bronchitis Heart disease Lymphoma Melanoma Thyroid cancer Social History Smoking/Tobacco Use Status: Current every day Tobacco Type: cigarettes Smoking risk assessment performed?: Yes Alcohol Intake: current Alcohol Intake frequency: holidays/special occasions only Drug use: Daily Substance use type: marijuana Do you feel safe at home: Yes Do you feel safe in your relationship?: Yes Exam Narrative Exam Narrative: Constitutional: Alert and oriented x3. Appears stated age. Normal body habitus. Head: Normocephalic, no trauma. Eyes: Pupils PERRL, Red reflex noted, EOM's intact. Eyelids symmetrical without lesions, discharge, or swelling. ENT: Bilateral TM's WNL, External ear normal to inspection, no mastoid TTP, swelling, or erythema, Nasal turbinates WNL, no nasal discharge. Normal dentition, Posterior pharynx WNL, no exudate. Chest: RRR, Normal S1, S2, distal pulses intact. Resp: Lungs clear to auscultation bilaterally, no wheezes, rales, or rhonchi. Abdomen: Soft, non-distended, Normoactive bowel sounds all 4 quads. Musculoskeletal: Stiff gait, 5/5 strength to all four extremities. No significant erythema or swelling noted to the joints. Skin: No suspicious rashes or lesions. Capillary refill less than 2 sec. Neurologic: Cranial nerves II-XII intact. Alert and oriented x 3. Motor: No deficits noted. Sensory: Intact bilaterally all 4 extremities. Reflexes: DTR's intact bilaterally.. Hematologic/Lymphatic: No ecchymosis, no lymphadenopathy. Course Vital Signs Vital signs: Vital Signs Temperature 36.6 C 09/11/21 12:07 Pulse 82 09/11/21 12:07 Respiratory Rate 16 09/11/21 12:07 Blood Pressure 118/81 09/11/21 12:07 Pulse Oximetry 98 09/11/21 12:07 Temperature 36.6 C 09/11/21 12:07 Temperature Source Temporal Artery Scan 09/11/21 12:07 Pulse 82 09/11/21 12:07 Respiratory Rate 16 09/11/21 12:07 Respiratory Effort 09/11/21 12:10 Blood Pressure 118/81 09/11/21 12:07 Blood Pressure Position Sitting 09/11/21 12:07 Pulse Oximetry 98 09/11/21 12:07 Oxygen Delivery Method Room Air 09/11/21 12:07 Oxygen Flow Rate 0 09/11/21 12:07 Pain Level 5 09/11/21 12:07
[2021-09-11 12:29] LABS: Abs Immature Grans 0.04 10^3/uL (0.0-0.06); Absolute Basophil Count 0.06 10^3/uL (0.0-0.2); Absolute Eosinophil Count 0.19 10^3/uL (0.0-0.7); Absolute Lymphocyte Count 2.05 10^3/uL (1.2-3.4); Absolute Monocyte Count 1.21 10^3/uL (0.1-0.8); Absolute Neutrophil Count 8.36 10^3/uL (1.2-6.7); Basophils % 0.5; Eosinophils % 1.6; HCT 47.7 % (40.0-50.0); Immature Grans % 0.3; Lymphocytes % 17.2; MCH 30.2 pg (27.0-33.0); MCHC 33.5 % (32.0-36.0); MCV 90 fL (80-95); Monocytes % 10.2; Neutrophils % 70.2; Platelet Count 302 10^3/uL (130-400); RDW 13.1 % (11.8-14.1); RDW-SD 43.6 fL; WBC 11.91 10^3/uL (4.4-10.8)
[2021-09-11 12:34] LABS: Source Nasal/Nares
[2021-09-11 12:47] LABS: ALT 18 U/L (16-63); AST 19 U/L (15-37); Albumin 3.9 g/dL (3.4-5.0); Alkaline Phosphatase 91 U/L (46-116); Anion Gap 5.6 mmol/L (3-11); BUN 14 mg/dL (7-18); Bilirubin, Total 0.5 mg/dL (0.2-1.0); CO2 29.4 mmol/L (21.0-32.0); CREATININE 1.2 mg/dL (0.70-1.30); Chloride 100 mmol/L (98-107); Glucose 82 mg/dL (74-106); Magnesium 1.8 mg/dL (1.8-2.4); Potassium 4.6 mmol/L (3.5-5.1); Sodium 135 mmol/L (136-145); Total Protein 7.8 g/dL (6.4-8.2); Troponin I < 50 ng/L (<or=60)
--- NOTE | 2021-09-11 12:55 | DI.RAD_ITS ---
Exam(s) XR PORTABLE CHEST AP EXAM: XR PORTABLE CHEST AP CLINICAL HISTORY: Chest Pressure TECHNIQUE: 2D digital imaging was performed. COMPARISON: CR XR PORTABLE CHEST AP from 08/16/2019 FINDINGS: LUNGS: Clear. No pleural abnormality seen. HEART: Normal. AORTA: Normal. BONES: Unremarkable for age. Soft tissues: Unremarkable. IMPRESSION: No acute findings. DATA REPOSITORY: RADIATION DOSE DELIVERED:
[2021-09-11] MEDS: Aspirin 81 MG CHEW 324 MG CH (13:20)
[2021-09-11 13:26] LABS: Lipase 100 U/L (73-393)
[2021-09-11 13:36] VITALS: BP 117/67; PULSE 77; RESP 18; O2SAT 97
[2021-09-11 13:41] LABS: COVID-19 PCR Negative (Negative)
[2021-09-11] MEDS: Ketorolac 15 MG/ML VIAL 7.5 MG IVP (13:55)
[2021-09-11] MEDS: Normal Saline Flush 10 ML SYR IVP (14:03)
[2021-09-11 14:35] LABS: Bilirubin Negative (Negative); Blood Negative (Negative); Clarity Clear (Clear); Glucose Negative (Negative); Ketones Negative (Negative); Leukocyte Esterase Negative (Negative); Nitrite Negative (Negative); Urobilinogen 0.2 EU/dL (Up TO 0.2); pH 5.5 (5-8)
== END 2021-09-11 14:42 | disposition home or self-care (01) ==
PROVIDERS: Emergency Provider Registered Nurse Emergency; PCP Nurse Practitioner Family
DX: R53.83 Other fatigue (principal); R53.81 Other malaise; R10.12 Left upper quadrant pain; R07.89 Other chest pain
CPT/HCPCS: 80053; 83690; 87635; 93005; 96374; 99283; 99284; 71045; 81003; 83735; 84484; 85025; 93010; J1885

== ENCOUNTER 2022-03-15 08:25 | Emergency (ER) | payer MEDICAID, SELFPAY ==
[2022-03-15 08:28] VITALS: BP 114/78; PULSE 92; TEMP 37; O2SAT 96
--- NOTE | 2022-03-15 08:30 | RT.EKG_ITS ---
APPROVED REPORT Exam: Resting ECG Reason for Exam: chest pain Patient Location: E HR:85 bpm ECG Measurements Heart Rate 85 AXIS MA 132 P 86 QRSd 80 QRS -69 QT 341 T 78 QTc 406 Conclusion Sinus rhythm...normal P axis, V-rate 60- 99 Inferior infarct, old...Q >35mS, II III aVF
--- NOTE | 2022-03-15 09:02 | ED.GENADUL_ITS ---
Discharge Plan Disposition Patient Disposition: Home Condition: Stable Discharge Details Clinical Impression: Influenza A, Electrolyte disturbance, COPD exacerbation Primary Care Provider: Rahul oJnes ED Provider: Vida Ordaz Home Meds and New Rx's Prescriptions: New prednisone 20 mg tablet 40 mg PO DAILY 5 Days Qty: 10 0RF Discharge Instructions Instructions: COPD (Chronic Obstructive Pulmonary Disease) (ED), H1N1 Influenza (ED) Additional Instructions: Please use the albuterol inhaler 1 or 2 puffs every 4-6 hours as needed for shortness of breath and wheezing. Tested positive for the flu. Sodium and magnesium were slightly low. Did give you some sodium in the fluids today. Please drink Gatorade or similar electrolyte drink for the next 3 to 5 days. Follow up with primary care provider in 5-7 days. Return to ED sooner if any worsening or concerns. Increase oral fluids. Take the prednisone once daily as directed. This was sent your pharmacy on file. Please take Tylenol with food every 4-6 hours as needed for pain and fever. Referrals: Rahul Jones [Primary Care Provider] - 1 week Discharge Data Discharge Date/Time-TO BE ENTERED AT DEPARTURE: 03/15/22 11:16 Medical Decision Making 56-year-old male presents to the ER with chief complaint of cough, 1 week of fever cold chills watery diarrhea shortness of breath. He does have a history of COPD and is a smoker however he does not normally need any inhalers. He repo rts he has been unable to eat for the last week he has chest and abdominal pain with coughing. He reports chills, no documented fever. Cardiac work-up ordered. EKG was reviewed by Dr. Chris Selby ER attending, please see his official report, old EKG available for review. No STEMI, questionable old infarct. Fluid ordered, chest x-ray, 60 mg of Solu-Medrol and liter of fluid. Differential diagnosis includes but not limited to flu, RSV, COVID, COPD exacerbation, dehydration, viral illness gastroenteritis. CBC shows no leukocytosis, monocytes 1.23, sodium 130 potassium 4.1 chloride 95, magnesium 1.6. Initial troponin within normal limits. He did get a liter of normal saline bolus, I did order magnesium 400 mg p.o. He is positive for influenza type A. He feels better after receiving albuterol inhaler. Chest x-ray is within normal limits nothing acute no evidence for pneumonia. Patient's presentation appears mostly respiratory he is positive for the flu. This is consistent with his physical findings. At this time I do not think a serial or second troponin is warranted due to length of symptoms and presentation.. Plan is to discharge patient home follow-up with PCP and to discuss strict return instructions. This text was generated using [employer] system, please disregard any oddities of phrase or misspellings. Medical Records Medical records reviewed: Yes I reviewed the patient's medical records. Imaging Data Radiologic Study: Imaging: X-Ray Radiologist's impression: EXAM:? XR PORTABLE CHEST AP CLINICAL HISTORY:? PUI, SOB, Hx of COPD TECHNIQUE:? 2D digital imaging was performed of the chest. One image was obtained.? An AP view was obtained. COMPARISON:? CR XR PORTABLE CHEST AP from 09/11/2021 FINDINGS: MEDIASTINUM: Normal.? HEART: Normal. PULMONARY VASCULATURE: Normal. LUNGS: Clear.? PLEURAL SPACE: No pleural effusion or pneumothorax. BONE:Within normal limits for the patient's age. OTHER FINDINGS:Normal.? IMPRESSION: No acute pulmonary findings. Lab Data Lab results reviewed: Yes I reviewed the patient's lab results. Labs: Laboratory Tests Range/Units 03/15/22 03/15/22 03/15/22 08:55 09:20 09:20 WBC (4.4-10.8) 10^3/uL 9.06 RBC (4.36-5.78) 10^6/uL 4.68 Hgb (13.5-17.5) g/dL 14.3 Hct (40.0-50.0) % 40.8 MCV (80-95) fL 87 MCH (27.0-33.0) pg 30.6 MCHC (32.0-36.0) % 35.0 RDW (11.8-14.1) % 12.8 Plt Count (130-400) 10^3/uL 252 MPV (8.0-11.0) fL 9.3 Immature Gran % 0.4 Neutrophils % 73.3 Lymphocytes % 12.3 Monocytes % 13.6 Eosinophils % 0.1 Basophils % 0.3 Nucleated RBC % (0.0-0.3) % 0.0 Absolute Neutrophils (1.2-6.7) 10^3/uL 6.64 Absolute Lymphocytes (1.2-3.4) 10^3/uL 1.11 L Absolute Monocytes (0.1-0.8) 10^3/uL 1.23 H Absolute Eosinophils (0.0-0.7) 10^3/uL 0.01 Absolute Basophils (0.0-0.2) 10^3/uL 0.03 Sodium (136-145) mmol/L 130 L Potassium (3.5-5.1) mmol/L 4.1 Chloride (98-107) mmol/L 95 L Carbon Dioxide (21.0-32.0) mmol/L 26.1 Anion Gap (3-11) mmol/L 8.9 BUN (7-18) mg/dL 17 Creatinine (0.70-1.30) mg/dL 1.1 Est GFR (CKD-EPI 2020) (mL/min/1.73m2) 78.30 Glucose (74-106) mg/dL 98 Calcium (8.5-10.1) mg/dL 8.6 Magnesium (1.8-2.4) mg/dL 1.6 L Total Bilirubin (0.2-1.0) mg/dL 0.4 AST (15-37) U/L 33 ALT (16-63) U/L 22 Alkaline Phosphatase (46-116) U/L 72 Troponin I (<or=60) ng/L < 50 Total Protein (6.4-8.2) g/dL 7.3 Albumin (3.4-5.0) g/dL 3.5 COVID-19 Source Not Applicable SARS-CoV-2 (PCR) (Negative) Negative Influenza Type A (PCR) (Negative) Positive A Influenza Type B (PCR) (Negative) Negative RSV (PCR) (Negative) Negative Range/Units 03/15/22 11:51 WBC (4.4-10.8) 10^3/uL RBC (4.36-5.78) 10^6/uL Hgb (13.5-17.5) g/dL Hct (40.0-50.0) % MCV (80-95) fL MCH (27.0-33.0) pg MCHC (32.0-36.0) % RDW (11.8-14.1) % Plt Count (130-400) 10^3/uL MPV (8.0-11.0) fL Immature Gran % Neutrophils % Lymphocytes % Monocytes % Eosinophils % Basophils % Nucleated RBC % (0.0-0.3) % Absolute Neutrophils (1.2-6.7) 10^3/uL Absolute Lymphocytes (1.2-3.4) 10^3/uL Absolute Monocytes (0.1-0.8) 10^3/uL Absolute Eosinophils (0.0-0.7) 10^3/uL Absolute Basophils (0.0-0.2) 10^3/uL Sodium (136-145) mmol/L Potassium (3.5-5.1) mmol/L Chloride (98-107) mmol/L Carbon Dioxide (21.0-32.0) mmol/L Anion Gap (3-11) mmol/L BUN (7-18) mg/dL Creatinine (0.70-1.30) mg/dL Est GFR (CKD-EPI 2020) (mL/min/1.73m2) Glucose (74-106) mg/dL Calcium (8.5-10.1) mg/dL Magnesium (1.8-2.4) mg/dL Total Bilirubin (0.2-1.0) mg/dL AST (15-37) U/L ALT (16-63) U/L Alkaline Phosphatase (46-116) U/L Troponin I (<or=60) ng/L Cancelled Total Protein (6.4-8.2) g/dL Albumin (3.4-5.0) g/dL COVID-19 Source SARS-CoV-2 (PCR) (Negative) Influenza Type A (PCR) (Negative) Influenza Type B (PCR) (Negative) RSV (PCR) (Negative) Sign Out No HPI General Mode of arrival: ambulatory . Date/Time Provider Initiated Documentation: 03/15/22 08:50 . Limitations to Documentation: no limitations . Information obtained by: patient, RN notes reviewed and old records reviewed . HPI Narrative: 56-year-old male presents to the ER with chief complaint of cough, 1 week of fever cold chills watery diarrhea shortness of breath. He does have a history of COPD and is a smoker however he does not normally need any inhalers. He reports he has been unable to eat for the last week he has chest and abdominal pain with coughing. He reports chills, no documented fever. He does have a past surgical history of nephrectomy, shoulder wrist surgeries and inguinal hernia repair. He denies any chest pain no diaphoresis. Related Data Home Medications Medication Instructions Recorded Confirmed prednisone 20 mg tablet 40 mg PO DAILY 5 days #10 tabs 03/15/22 Previous Rx's Medication Instructions Recorded prednisone 20 mg tablet 40 mg PO DAILY 5 days #10 tabs 03/15/22 Allergies Allergy/AdvReac Type Severity Reaction Status Date / Time Penicillins Allergy Severe Anaphylaxis Unverified 03/15/22 08:41 tramadol [From Ultram] AdvReac Intermediate Nausea, Unverified 03/15/22 08:41 vomiting meloxicam AdvReac Mild I just Unverified 03/15/22 08:41 dont like taking it, Im not allergic. General Stated Complaint: RespSymp DRU: 2 Review of Systems All systems reviewed & are unremarkable except as noted in HPI and below PFSH All Active Problems (Updated 03/15/22 @ 10:57 by Vida Ordaz NP) Rectal fissure (Acute) Hematuria (Acute) Pancreatitis (Chronic) Abdominal pain (Acute) Lumbago (Acute) Influenza A (Acute) Electrolyte disturbance (Acute) COPD exacerbation (Acute) Medical History Chronic otitis media of right ear Hearing loss Heart murmur Hx of cataract Tympanic membrane perforation Surgical History Arthroscopy, Shoulder right ear surgery right ear for otitis media Extraction of cataract left Nephrectomy left side-for cysts (benign) Repair of inguinal hernia (05/07/17) right wrist surgery right- for tendon injury secondary to laceration Family History Other Bronchitis Heart disease Lymphoma Melanoma Thyroid cancer Social History Smoking/Tobacco Use Status: Current every day Tobacco Type: cigarettes Smoking risk assessment performed?: Yes Alcohol Intake: former Drug use: Daily Substance use type: marijuana Details: DABS oil Do you feel safe at home: Yes Do you feel safe in your relationship?: Yes Exam Narrative Exam Narrative: Constitutional: Alert and oriented x3. Appears stated age. Normal body habitus. Head: Normocephalic, no trauma. Eyes: Pupils PERRL, Red reflex noted, EOM's intact. Eyelids symmetrical without lesions, discharge, or swelling. ENT: Bilateral TM's WNL, External ear normal to inspection, no mastoid TTP, swelling, or erythema, Nasal turbinates WNL, no nasal discharge. Normal dentition, Posterior pharynx WNL, no exudate. Chest: RRR, Normal S1, S2, distal pulses intact. Resp: Lungs diminished, prolonged expiratory period, no significant wheezes or rhonchi auscultated initially.. Abdomen: Soft, non-distended, Normoactive bowel sounds all 4 quads. Musculoskeletal: Normal gait, 5/5 strength to all four extremities. Skin: No suspicious rashes or lesions. Capillary refill less than 2 sec. Neurologic: Cranial nerves II-XII intact. Alert and oriented x 3. Motor: No deficits noted. Sensory: Intact bilaterally all 4 extremities. Reflexes: DTR's intact bilaterally.. Hematologic/Lymphatic: No ecchymosis, no lymphadenopathy. Course Vital Signs Vital signs: Vital Signs Temperature 37.0 C 03/15/22 08:28 Pulse 92 H 03/15/22 08:28 Blood Pressure 114/78 03/15/22 08:28 Pulse Oximetry 96 03/15/22 08:28 Temperature 37.0 C 03/15/22 08:28 Pulse 92 H 03/15/22 08:28 Respiratory Effort Incrsd Work of Breathing 03/15/22 08:42 Blood Pressure 114/78 03/15/22 08:28 Blood Pressure Position Sitting 03/15/22 08:28 Pulse Oximetry 96 03/15/22 08:28 Oxygen Delivery Method Room Air 03/15/22 08:28 Oxygen Flow Rate 0 03/15/22 08:28 Pain Level 6 03/15/22 08:28
[2022-03-15 09:15] VITALS: PULSE 88; O2SAT 96
[2022-03-15] MEDS: Normal Saline 1,000 ML 1000 ML IV (09:20)
--- NOTE | 2022-03-15 09:20 | DI.RAD_ITS ---
Exam(s) XR PORTABLE CHEST AP EXAM: XR PORTABLE CHEST AP CLINICAL HISTORY: PUI, SOB, Hx of COPD TECHNIQUE: 2D digital imaging was performed of the chest. One image was obtained. An AP view was ob tained. COMPARISON: CR XR PORTABLE CHEST AP from 09/11/2021 FINDINGS: MEDIASTINUM: Normal. HEART: Normal. PULMONARY VASCULATURE: Normal. LUNGS: Clear. PLEURAL SPACE: No pleural effusion or pneumothorax. BONE:Within normal limits for the patient's age. OTHER FINDINGS:Normal. IMPRESSION: No acute pulmonary findings. DATA REPOSITORY: RADIATION DOSE DELIVERED:
[2022-03-15 09:26] LABS: Abs Immature Grans 0.04 10^3/uL (0.0-0.06); Absolute Basophil Count 0.03 10^3/uL (0.0-0.2); Absolute Eosinophil Count 0.01 10^3/uL (0.0-0.7); Absolute Lymphocyte Count 1.11 10^3/uL (1.2-3.4); Absolute Monocyte Count 1.23 10^3/uL (0.1-0.8); Absolute Neutrophil Count 6.64 10^3/uL (1.2-6.7); Basophils % 0.3; Eosinophils % 0.1; HCT 40.8 % (40.0-50.0); HGB 14.3 g/dL (13.5-17.5); Immature Grans % 0.4; Lymphocytes % 12.3; MCH 30.6 pg (27.0-33.0); MCV 87 fL (80-95); MPV 9.3 fL (8.0-11.0); Monocytes % 13.6; Neutrophils % 73.3; Platelet Count 252 10^3/uL (130-400); RBC 4.68 10^6/uL (4.36-5.78); RDW 12.8 % (11.8-14.1); RDW-SD 40.7 fL; WBC 9.06 10^3/uL (4.4-10.8)
[2022-03-15] MEDS: methylPREDNISolone SUCC 125 MG VIAL 60 MG IVP (09:30)
[2022-03-15] MEDS: Inhaler, Assist Device 1 EACH MC (09:33)
[2022-03-15] MEDS: Albuterol HFA 8 GM 60 PUFF INH IH (09:33)
[2022-03-15 09:45] VITALS: PULSE 90; O2SAT 95
[2022-03-15 09:46] LABS: COVID-19 PCR Negative (Negative); Influenza B PCR Negative (Negative); RSV PCR Negative (Negative)
[2022-03-15 09:48] LABS: ALT 22 U/L (16-63); AST 33 U/L (15-37); Albumin 3.5 g/dL (3.4-5.0); Alkaline Phosphatase 72 U/L (46-116); Anion Gap 8.9 mmol/L (3-11); BUN 17 mg/dL (7-18); Bilirubin, Total 0.4 mg/dL (0.2-1.0); CO2 26.1 mmol/L (21.0-32.0); CREATININE 1.1 mg/dL (0.70-1.30); Calcium 8.6 mg/dL (8.5-10.1); Chloride 95 mmol/L (98-107); Glucose 98 mg/dL (74-106); Magnesium 1.6 mg/dL (1.8-2.4); Potassium 4.1 mmol/L (3.5-5.1); Sodium 130 mmol/L (136-145); Total Protein 7.3 g/dL (6.4-8.2); Troponin I < 50 ng/L (<or=60)
[2022-03-15 09:49] LABS: Influenza A PCR Positive (Negative)
[2022-03-15 10:00] VITALS: PULSE 95; RESP 20; O2SAT 95
[2022-03-15 10:30] VITALS: PULSE 92; RESP 20; O2SAT 94
[2022-03-15] MEDS: Magnesium Oxide 400 MG TAB PO (10:42)
[2022-03-15 11:15] VITALS: BP 160/90; PULSE 94; RESP 20; TEMP 36.8; O2SAT 94
== END 2022-03-15 11:16 | disposition home or self-care (01) ==
PROVIDERS: Emergency Provider Registered Nurse Emergency; PCP Physician Assistant
DX: J44.1 Chronic obstructive pulmonary disease with (acute) exacerbation (principal); J10.1 Influenza due to other identified influenza virus with other respiratory manifestations; E87.8 Other disorders of electrolyte and fluid balance, not elsewhere classified; Z20.822 Contact with and (suspected) exposure to COVID-19
CPT/HCPCS: 36415; 80053; 87637; 93005; 96361; 96374; 99284; 71045; 83735; 84484; 85025; 93010; 99285; J2930

== ENCOUNTER 2022-09-24 18:17 | Emergency (ER) | payer MEDICAID, SELFPAY ==
[2022-09-24 18:24] VITALS: BP 123/70; PULSE 73; RESP 16; TEMP 36.3; O2SAT 98
--- NOTE | 2022-09-24 18:30 | DI.RAD_ITS ---
Exam(s) XR ABDOMEN FLAT UPRIGHT EXAM: 2D digital imaging was performed. CLINICAL HISTORY: constipation. COMPARISON: CT CT ABDOMEN PELVIS W from 10/26/2020 TECHNIQUE: Supine and upright views of the abdomen was performed. Three images were obtained. FINDINGS: LUNG BASES: Clear. BOWEL GAS PATTERN: Nondistended. There is a moderate amount of stool in the colon. FREE AIR: None. CALCIFICATIONS: No radiopaque calcifications. OSSEOUS STRUCTURES: Normal for age. OTHER FINDINGS: Surgical clips are again seen in the left upper quadrant of the abdomen. IMPRESSION: No evidence of an acute abdomen. DATA REPOSITORY: RADIATION DOSE DELIVERED:
--- NOTE | 2022-09-24 19:28 | DI.VRAD_ITS ---
PROCEDURE INFORMATION: Exam: XR Abdomen Exam date and time: 09/24/2022 6:51 PM Age: 56 years old Clinical indication: Abdominal pain; Generalized; Prior surgery; Surgery date: 6+ months; Surgery type: Nephrectomy, hernia repair; Patient HX: Constipation TECHNIQUE: Imaging protocol: Radiologic exam of the abdomen. Views: 2 Views. Upright and supine views. COMPARISON: CT ABDOMEN PELVIS W 10/26/2020 2:17 PM FINDINGS: Gastrointestinal tract: Normal. No bowel dilation. Intraperitoneal space: Normal. No free air. Bones/joints: Mild degenerative changes noted in the lumbar spine. No acute fracture IMPRESSION: No acute abnormality Dictated and Authenticated by: Simone Steinberg MD. Ordering:LENIN Prieto MD
--- NOTE | 2022-09-24 19:39 | ED.GENADUL_ITS ---
Discharge Plan Disposition Patient Disposition: Home Condition: Stable Discharge Details Clinical Impression: Constipation Primary Care Provider: Rahul Jones ED Provider: Ida Anthony Home Meds and New Rx's Prescriptions: New docusate sodium [Colace] 100 mg capsule 100 mg PO BID Qty: 60 0RF polyethylene glycol 3350 [Miralax] 17 gram/dose powder 17 g PO BID Qty: 510 0RF Discharge Instructions Instructions: Constipation (ED) Additional Instructions: Drink magnesium citrate when you get home Administer large-volume enema Referrals: Rahul Jones [Primary Care Provider] - Discharge Data Discharge Date/Time-TO BE ENTERED AT DEPARTURE: 09/24/22 19:48 HPI General Mode of arrival: ambulatory . Date/Time Provider Initiated Documentation: 09/24/22 18:36 . Limitations to Documentation: no limitations . Information obtained by: patient . HPI Narrative: This is a 56-year-old male with multiple abdominal surgery history who has chronic constipation requiring enema as loose states he has not had a bowel movement in 4 days. He denies nausea nausea vomiting. He is passing flatus. He has had no fever. He presented to urgent care for evaluation. Referred him here to the emergency department Related Data Home Medications Medication Instructions Recorded Confirmed docusate sodium 100 mg capsule 100 mg PO BID #60 caps 09/24/22 (Colace) polyethylene glycol 3350 17 17 g PO BID #510 grams 09/24/22 gram/dose oral powder (Miralax) Previous Rx's Medication Instructions Recorded docusate sodium 100 mg capsule 100 mg PO BID #60 caps 09/24/22 (Colace) polyethylene glycol 3350 17 17 g PO BID #510 grams 09/24/22 gram/dose oral powder (Miralax) Allergies Allergy/AdvReac Type Severity Reaction Status Date / Time Penicillins Allergy Severe Anaphylaxis Unverified 09/24/22 18:27 tramadol [From Ultram] AdvReac Intermediate Nausea, Unverified 09/24/22 18:27 vomiting meloxicam AdvReac Mild I just Unverified 09/24/22 18:27 dont like taking it, Im not allergic. General Stated Complaint: Abd Prob DRU: 3 Review of Systems All systems reviewed & are unremarkable except as noted in HPI and below PFSH All Active Problems (Updated 09/24/22 @ 19:44 by Ida Anthony, BEN) Rectal fissure (Acute) Hematuria (Acute) Pancreatitis (Chronic) Abdominal pain (Acute) Lumbago (Acute) Constipation (Acute) Medical History Chronic otitis media of right ear Hearing loss Heart murmur Hx of cataract Tympanic membrane perforation Surgical History Arthroscopy, Shoulder right ear surgery right ear for otitis media Extraction of cataract left Nephrectomy left side-for cysts (benign) Repair of inguinal hernia (05/07/17) right wrist surgery right- for tendon injury secondary to laceration Family History Other Bronchitis Heart disease Lymphoma Melanoma Thyroid cancer Social History Smoking/Tobacco Use Status: Current every day Tobacco Type: cigarettes Smoking risk assessment performed?: Yes Alcohol Intake: former Drug use: Daily Substance use type: marijuana Details: DABS oil Do you feel safe at home: Yes Do you feel safe in your relationship?: Yes Exam Const General: cooperative, comfortable, no acute distress, frail appearing (Much older than stated age) and ill appearing chronically Nutritional Appearance: thin Orientation: alert and awake HENNV Head: normal to inspection, normocephalic and atraumatic Mouth: oral mucosae normal GI Inspection: normal to inspection and non-distended Palpation: soft, not firm, no guarding and tender in the LLQ Auscultation: hyperactive bowel sounds Skin General skin exam: no rashes or lesions noted Neuro General: patient alert, patient awake and patient oriented x3 Extrem General: normal to inspection and full ROM Course Vital Signs Vital signs: Vital Signs Temperature 36.3 C L 09/24/22 18:24 Pulse 73 09/24/22 18:24 Respiratory Rate 16 09/24/22 18:24 Blood Pressure 123/70 09/24/22 18:24 Pulse Oximetry 98 09/24/22 18:24 Temperature 36.3 C L 09/24/22 18:24 Temperature Source Skin 09/24/22 18:24 Pulse 73 09/24/22 18:24 Respiratory Rate 16 09/24/22 18:24 Respiratory Effort Normal, Non-Labored 06/20/23 18:28 Blood Pressure 123/70 06/20/23 18:24 Blood Pressure Position Sitting 09/24/22 18:24 Pulse Oximetry 98 09/24/22 18:24 Oxygen Delivery Method Room Air 09/24/22 18:24 Oxygen Flow Rate 0 09/24/22 18:24 Pain Level 5 09/24/22 18:24
[2022-09-24 19:41] VITALS: BP 116/72; PULSE 64; RESP 18; O2SAT 99
== END 2022-09-24 19:48 | disposition home or self-care (01) ==
PROVIDERS: Emergency Provider Nurse Practitioner Acute Care; PCP Physician Assistant
DX: K59.00 Constipation, unspecified (principal)
CPT/HCPCS: 99283; 74019

== ENCOUNTER 2022-10-06 07:08 | Emergency (ER) | payer MEDICAID, SELFPAY ==
[2022-10-06 07:14] VITALS: BP 112/84; PULSE 88; RESP 18; TEMP 37.1; O2SAT 98
--- NOTE | 2022-10-06 07:24 | ED.GENADUL_ITS ---
Discharge Plan Discharge Details Chief Complaint: Abd Prob Primary Care Provider: Rahul Jones ED Provider: Florin Myers Home Meds and New Rx's Prescriptions: No Action docusate sodium [Colace] 100 mg capsule 100 mg PO BID Qty: 60 0RF polyethylene glycol 3350 [Miralax] 17 gram/dose powder 17 g PO BID Qty: 510 0RF Medical Decision Making 56-year-old male history of constipation presents with cute onset left upper quadrant pain after coughing this morning while smoking a cigarette. Patient is afebrile nontoxic appears slightly uncomfortable normotensive nontachycardic n ot hypoxic. No respiratory distress. Nonperitoneal nondistended abdomen. Consider muscle strain versus hernia versus less likely pneumothorax versus lower suspicion for splenic pathology. Patient's been told that he does have an enlarged abdominal aorta which is being followed as an outpatient. Lower suspicion for aortic dissection, hematoma, or expanding aneurysm. Must also consider colitis although patient has no nausea fever or diarrhea. Screening labs imaging analgesia antiemetics close reassess 8: [address] imaging for disposition HPI General Date/Time Provider Initiated Documentation: 10/06/22 07:10 . HPI Narrative: 56-year-old male history of constipation presents with acute onset left upper quadrant pain after coughing this morning. Related Data Home Medications Medication Instructions Recorded Confirmed docusate sodium 100 mg capsule 100 mg PO BID #60 caps 09/24/22 (Colace) polyethylene glycol 3350 17 17 g PO BID #510 grams 09/24/22 gram/dose oral powder (Miralax) Previous Rx's Medication Instructions Recorded docusate sodium 100 mg capsule 100 mg PO BID #60 caps 09/24/22 (Colace) polyethylene glycol 3350 17 17 g PO BID #510 grams 09/24/22 gram/dose oral powder (Miralax) Allergies Allergy/AdvReac Type Severity Reaction Status Date / Time Penicillins Allergy Severe Anaphylaxis Unverified 10/06/22 07:19 tramadol [From Ultram] AdvReac Intermediate Nausea, Unverified 10/06/22 07:19 vomiting meloxicam AdvReac Mild I just Unverified 10/06/22 07:19 dont like taking it, Im not allergic. General Stated Complaint: Abd Prob DRU: 3 Review of Systems Narrative: Review of Systems Constitutional: negative Eyes: negative ENT: negative Cardiovascular: negative Respiratory: negative Gastrointestinal: Left upper quadrant pain : negative Musculoskeletal: negative Skin: negative Neurologic: negative Psych: negative PFSH All Active Problems (Updated 09/24/22 @ 19:44 by Ida Anthony NP) Rectal fissure (Acute) Hematuria (Acute) Pancreatitis (Chronic) Abdominal pain (Acute) Lumbago (Acute) Constipation (Acute) Medical History Chronic otitis media of right ear Hearing loss Heart murmur Hx of cataract Tympanic membrane perforation Surgical History Arthroscopy, Shoulder right ear surgery right ear for otitis media Extraction of cataract left Nephrectomy left side-for cysts (benign) Repair of inguinal hernia (05/07/17) right wrist surgery right- for tendon injury secondary to laceration Family History Other Bronchitis Heart disease Lymphoma Melanoma Thyroid cancer Social History Smoking/Tobacco Use Status: Current every day Tobacco Type: cigarettes Years smoked: 45 Smoking risk assessment performed?: Yes Alcohol Intake: former Drug use: Daily Substance use type: marijuana Details: DABS oil Housing: house Do you feel safe at home: Yes Do you feel safe in your relationship?: Yes Additional Social history: has custody of 3 grand children Exam Narrative Exam Narrative: Physical Examination General: alert, awake, cooperative, resting comfortably, no acute distress HEENT: normocephalic, atraumatic; PERRL, EOM intact, conjunctiva normal; no nasal discharge; moist mucous membranes, oral and pharyngeal mucosa normal, tolerating secretions Neck: supple, trachea midline; full ROM Chest: normal to inspection Respiratory: normal respiratory effort, speaking in full sentences, clear to auscultation, no wheezing, rales or rhonchi Cardiac: regular rate, regular rhythm, S1S2 intact, no murmurs rubs or gallops GI: abdomen soft, non-tender, non-distended; no palpable mass or hepatosplenomegaly Skin: no lesions, rashes or trauma appreciated Neuro: AAOx3, normal speech, moving all extremitie Psych: Appropriate mood and affect Course Vital Signs Vital signs: Vital Signs Temperature 37.1 C 10/06/22 07:14 Pulse 88 10/06/22 07:14 Respiratory Rate 18 10/06/22 07:14 Blood Pressure 112/84 10/06/22 07:14 Pulse Oximetry 98 10/06/22 07:14 Temperature 37.1 C 10/06/22 07:14 Temperature Source Tympanic 10/06/22 07:14 Pulse 88 10/06/22 07:14 Respiratory Rate 18 10/06/22 07:14 Respiratory Effort Normal, Non-Labored 10/06/22 07:17 Blood Pressure 112/84 10/06/22 07:14 Pulse Oximetry 98 10/06/22 07:14 Oxygen Delivery Method Nasal Cannula 10/06/22 07:14 Oxygen Flow Rate 0 10/06/22 07:14 Pain Level 5 10/06/22 07:14
[2022-10-06] MEDS: Ketorolac 15 MG/ML VIAL IVP (07:31)
[2022-10-06] MEDS: Ondansetron 4 MG/2 ML VIAL IVP (07:32)
[2022-10-06 07:44] LABS: Abs Immature Grans 0.02 10^3/uL (0.0-0.06); Absolute Basophil Count 0.08 10^3/uL (0.0-0.2); Absolute Eosinophil Count 0.35 10^3/uL (0.0-0.7); Absolute Lymphocyte Count 2.16 10^3/uL (1.2-3.4); Absolute Monocyte Count 0.96 10^3/uL (0.1-0.8); Absolute Neutrophil Count 4.21 10^3/uL (1.2-6.7); Eosinophils % 4.5; HCT 44.3 % (40.0-50.0); HGB 15.2 g/dL (13.5-17.5); Immature Grans % 0.3; Lymphocytes % 27.8; MCH 30.4 pg (27.0-33.0); MCHC 34.3 % (32.0-36.0); MCV 89 fL (80-95); MPV 9.1 fL (8.0-11.0); Monocytes % 12.3; Neutrophils % 54.1; Platelet Count 310 10^3/uL (130-400); RDW 13.3 % (11.8-14.1); RDW-SD 43.4 fL; WBC 7.78 10^3/uL (4.4-10.8)
[2022-10-06 08:06] LABS: ALT 18 U/L (16-63); AST 25 U/L (15-37); Albumin 3.7 g/dL (3.4-5.0); Alkaline Phosphatase 109 U/L (46-116); Anion Gap 10.8 mmol/L (3-11); BUN 22 mg/dL (7-18); Bilirubin, Total 0.3 mg/dL (0.2-1.0); CO2 27.2 mmol/L (21.0-32.0); CREATININE 1.7 mg/dL (0.70-1.30); Calcium 8.6 mg/dL (8.5-10.1); Chloride 104 mmol/L (98-107); Estimated GFR 46.44 (mL/min/1.73m2); Glucose 101 mg/dL (74-106); Lipase 28 U/L (16-77); Sodium 142 mmol/L (136-145); Total Protein 7.4 g/dL (6.4-8.2)
[2022-10-06] MEDS: Normal Saline Flush 10 ML SYR IJ (08:40)
--- NOTE | 2022-10-06 08:40 | DI.CT_ITS ---
Exam(s) CT ABDOMEN PELVIS W EXAM: CT ABDOMEN PELVIS W CLINICAL HISTORY: LUQ abd pain TECHNIQUE: Imaging Protocol: Axial computed tomography images with coronal and sagittal reformatted images were created and reviewed CONTRAST MATERIAL: Intravenous: Omnipaque 350 Contrast volume:77 mL Oral: No COMPARISON: CT CT ABDOMEN PELVIS W from 10/26/2020 FINDINGS: ABDOMEN: Lung Bases: There are calcified granulomas present. Liver: Normal density. There is a stable cyst in the left lobe of the liver. No follow-up is recomme nded. Portal, Superior Mesenteric, and Splenic Veins: Unremarkable. Gallbladder and Biliary Tract: No radiodense calculus or dilation. Pancreas: Normal density, no abnormal calcifications or inflammatory process. Spleen: Normal. Adrenals: No masses seen. Kidneys: The left kidney is absent. There is scarring seen in the right kidney. No radiodense stone s or obstructive uropathy. No masses seen. Abdominal Aorta: There is an infrarenal abdominal aortic aneurysm measuring up to 3.7 cm in diameter. Atherosclerosis is present. There is also aneurysmal dilatation of the right common iliac artery. Bowel: No obstruction or bowel wall thickening. Appendix is unremarkable. Peritoneal Cavity: No ascites, collection or mesenteric inflammatory response. No free air. Lymph Nodes: Within normal limits. Bones: Within normal limits for the patient's age. Soft Tissues: Unremarkable. PELVIS: Bladder: Symmetric distention, no gross wall thickening. Reproductive Organs: Unremarkable as visualized. Lymph Nodes: Within normal limits. Bones: Within normal limits for the patient's age. IMPRESSION: 1. No acute abdominal or pelvic process. 2. Stable infrarenal abdominal aortic aneurysm and right common iliac artery aneurysm. No evidence o f rupture. 3. Probable postsurgical or posttraumatic changes involving the posterior cortex of the right kidney which appears stable. 4. Status post left nephrectomy. RADIATION DOSE DELIVERED: 591.58mGy.cm Total DLP DATA REPOSITORY: All CT scans at this facility are submitted to the National Radiology Data Registry (NRDR) Dose Index Registry (DIR) with the [employer] (ACR). RADIATION OPTIMIZATION: All CT scans at this facility use at least one of these dose optimization te chniques: automated exposure control; mA and/or kV adjustment per patient size (includes targeted exa ms where dose is matched to clinical indication); or iterative reconstruction.
[2022-10-06] MEDS: Normal Saline - Diluent 50 ML VIAL IJ (08:41)
[2022-10-06] MEDS: Omnipaque 350 MG/ML 100 ML BTL 77 ML IJ (08:50)
--- NOTE | 2022-10-06 08:54 | DI.RAD_ITS ---
Exam(s) XR CHEST 2V PA LATERAL EXAM: XR CHEST 2V PA LATERAL CLINICAL HISTORY: LUQ pain after coughing TECHNIQUE: 2D digital imaging was performed of the chest. Two images were obtained. PA and lateral views were obtained. COMPARISON: CR XR PORTABLE CHEST AP from 03/15/2022 FINDINGS: MEDIASTINUM: Normal. HEART: Normal. PULMONARY VASCULATURE: Normal. LUNGS: Clear. PLEURAL SPACE: No pleural effusion or pneumothorax. BONE:Within normal limits for the patient's age. OTHER FINDINGS:Normal. IMPRESSION: No acute pulmonary findings. DATA REPOSITORY: RADIATION DOSE DELIVERED:
--- NOTE | 2022-10-06 09:27 | DI.VRAD_ITS ---
PROCEDURE INFORMATION: Exam: CT Abdomen And Pelvis With Contrast Exam date and time: 10/06/2022 8:37 AM Age: 56 years old Clinical indication: Abdominal pain; Generalized; Prior surgery; Surgery date: 6+ months; Surgery type: Removal total and kidney/partial due to renal CA TECHNIQUE: Imaging protocol: Computed tomography of the abdomen and pelvis with contrast. Radiation optimization: All CT scans at this facility use at least one of these dose optimization techniques: automated exposure control; mA and/or kV adjustment per patient size (includes targeted exams where dose is matched to clinical indication); or iterative reconstruction. Contrast material: OMNI 350; Contrast volume: 77 ml; Contrast route: INTRAVENOUS (IV); COMPARISON: CT ABDOMEN PELVIS W 10/26/2020 2:17 PM FINDINGS: Liver: Subcentimeter low attenuation area in the liver is too small for characterization. Gallbladder and bile ducts: Normal. No calcified stones. No ductal dilation. Pancreas: Normal. No ductal dilation. Spleen: Normal. No splenomegaly. Adrenal glands: Normal. No mass. Kidneys and ureters: Mild disruption of the posterior cortex of the right kidney. For example series 4, image 27, 28 May be due to prior surgery. Status post left nephrectomy. Stomach and bowel: Unremarkable. No obstruction. No mucosal thickening. Appendix: No evidence of appendicitis. Intraperitoneal space: Unremarkable. No free air. No significant fluid collection. Vasculature: Unruptured infrarenal abdominal aortic aneurysm 4 x 3.76 cm.. Unruptured aneurysm of the right common iliac artery 21 mm. Lymph nodes: Unremarkable. No enlarged lymph nodes. Urinary bladder: Unremarkable as visualized. Reproductive: Unremarkable as visualized. Bones/joints: Unremarkable. No acute fracture. Soft tissues: Unremarkable. IMPRESSION: 1. Unruptured infrarenal abdominal aortic aneurysm 4 x 3.76 cm.. 2. Unruptured aneurysm of the right common iliac artery 21 mm. 3. Mild disruption of the posterior cortex of the right kidney. For example series 4, image 27, 28 May be due to prior surgery. 4. Status post left nephrectomy. Dictated and Authenticated by: Santana Vasquez MD. Ordering:LINDA Catherine MD
--- NOTE | 2022-10-06 09:27 | DI.VRAD_ITS ---
PROCEDURE INFORMATION: Exam: XR Chest Exam date and time: 10/06/2022 8:45 AM Age: 56 years old Clinical indication: Pain; Left-sided TECHNIQUE: Imaging protocol: Radiologic exam of the chest. Views: 2 views. COMPARISON: CR XR PORTABLE CHEST AP 03/15/2022 8:52 AM FINDINGS: Lungs: Unremarkable. No consolidation. Pleural spaces: Unremarkable. No pleural effusion. No pneumothorax. Heart/Mediastinum: Unremarkable. No cardiomegaly. Bones/joints: Unremarkable. IMPRESSION: No acute findings. Dictated and Authenticated by: Santana Vasquez MD. Ordering:LINDA Catherine MD
--- NOTE | 2022-10-06 09:48 | W.EDPROG ---
Date of service: 10/06/22 Time of Service: 09:00 Medical Decision Making Signed out from overnight provider pending CT scan of the abdomen and pelvis. In short patient with acute onset of pain notable for a left laparotomy area after coughing forcefully. CT scan of the abdomen pelvis shows no change in the patient's known aortic aneurysm and no evidence of AN acute ventral hernia. Patient likely has a partial injury to the surgical site with no herniation. We will discharge and instructed the patient to limit lifting and to support the abdominal wall he continues to cough. Follow-up as an outpatient with PMD and general surgery if pain continues or worsens Sign Out Sign Out Data: Sign Out Comment: LUQ pain after coughing; consider hernia v abd muscle strain v less likely pneumo; pending labs and CT for dispo Last updated by Florin Myers MD at 10/06/22 08:44 Discharge Plan Disposition Patient Disposition: Home Condition: Stable Discharge Details Clinical Impression: Pain at surgical incision Primary Care Provider: Rahul Jones ED Provider: Vahe Lyn Home Meds and New Rx's Prescriptions: Continued docusate sodium [Colace] 100 mg capsule 100 mg PO BID Qty: 60 0RF polyethylene glycol 3350 [Miralax] 17 gram/dose powder 17 g PO BID Qty: 510 0RF Discharge Instructions Instructions: Incisional Hernia (DC) Discharge Data Discharge Date/Time-TO BE ENTERED AT DEPARTURE: 10/06/22 09:52
[2022-10-06 10:04] VITALS: BP 114/82; PULSE 82; RESP 18; O2SAT 98
== END 2022-10-06 09:52 | disposition home or self-care (01) ==
PROVIDERS: Emergency Medicine; Emergency Provider Emergency Medicine; PCP Physician Assistant
DX: G89.18 Other acute postprocedural pain (principal); R10.12 Left upper quadrant pain
CPT/HCPCS: 36415; 80053; 83690; 96374; 96375; 99285; 71046; 74177; 85025; 99284; J1885; J2405; J3490

== ENCOUNTER 2022-10-21 13:36 | Outpatient (REF) | payer MEDICAID, SELFPAY ==
[2022-10-21 16:55] LABS: Anion Gap 7.1 mmol/L (3-11); BUN 13 mg/dL (7-18); CO2 25.9 mmol/L (21.0-32.0); CREATININE 1.1 mg/dL (0.70-1.30); Calcium 8.9 mg/dL (8.5-10.1); Chloride 104 mmol/L (98-107); Glucose 100 mg/dL (74-106); Potassium 4.8 mmol/L (3.5-5.1); Sodium 137 mmol/L (136-145)
== END 2022-10-21 13:37 | disposition home or self-care (01) ==
LOC: NCHCN 13:36
PROVIDERS: PCP Physician Assistant; Visit Provider Nurse Practitioner Family
DX: R79.89 Other specified abnormal findings of blood chemistry (principal)
CPT/HCPCS: 80048

== ENCOUNTER → 2022-11-18 01:45 | Outpatient (CLI) | payer MEDICAID, SELFPAY ==
--- NOTE | 2022-11-18 09:00 | ETT_ITS ---
APPROVED REPORT Exam: Exercise Treadmill Patient Location: Out-Patient Room/Bed: Stress Nurse: Ganga Sánchez RN Ordering Provider:ERIC FRYE, Contact Number: [phone] BMI: 19.26 Baseline Rhythm: Sinus Rhythm Indications: Intermittent chest pain, dyspnea, clearance for colonoscopy. Medical History Medical History: COPD, Anxiety, CAD s/p PR, Depression, muscle weakness, fatigue, renal CA with nephr ectomy, Aoritc NEURYSM, NEAR SYNCOPE, 1 ppd tobacco dependence. Cardiac Medications: none Allergies: No known drug allergies Cardiac Risk Factors: aortic aneurysm, PR, tobacco dependence, COPD. Previous Cardiac Procedures: none Pretest Chest Pain Characteristics: No chest pain Exercise History: Physically active Physical Disabilities: Legs Lung Sounds: Clear to auscultation Heart Sounds: Regular Stress Test Details Test: Exercise stress testing was performed using a Gautam protocol. Rest Stress HR Resting HR Supine: 73 bpm Max Heart Rate (APMHR): 163 bpm Resting HR Standin bpm Target HR (85% APMHR): 139 bpm Max HR Achieved: 118 bpm % of APMHR: 72 Recovery HR: 76 bpm HR response to stress: Blunted HR response to stress BP Resting BP Supine: 118/72 mmHg Resting BP Standin/72 mmHg Max BP: 148/92 mmHg Recovery BP: 132/84 mmHg BP response to stress: Normal blood pressure response to stress. ECG Resting ECG: Sinus Rhythm Ectopy: none Stress ECG: Sinus Tachycardia ST Change: No significant ST segment changes noted Arrhythmia: None Recovery ECG: Sinus Rhythm Recovery ST Change: No significant ST segment changes noted Recovery Arrhythmia: None Clinical Reason for Termination: Fatigue, Dyspnea, right leg cramp. Stress Symptoms: Dyspnea, General Fatigue, right leg cramp. Exercise duration: 6 min22 sec Highest Stage Reached: Stage 3: 3.4 mph at 14% grade. Exercise capacity: 7.59 METs Angina Score: None Belcher Treadmill Score: 5.4 Rate Pressure Product: 62629 Stress ECG Conclusion 1. Resting electrocardiogram was within within normal limits 2. Patient exercised on the Gautam protocol completed a workload of 7.59 METS, limited by fatigue 3. Blunted heart rate response to exercise. Peak heart rate achieved was 72% of predicted for age 4. Electrocardiographic portion of the test was nondiagnostic due to inadequate heart rate 5. There were no dysrhythmias Belcher Treadmill Score is 5.4 which is Low risk. Stress Test Summary STAGE Time (mins) Speed (mph) Grade (%) HR BP SpO2 SYMPTOMS METS Supine 73 118/72 95 none Standing 79 112/72 96 none 1 3 1.7 10 97 124/82 95 none 4.5 2 6 2.5 12 117 148/92 96 none 7 3 9 3.4 14 115 91 SOB, Dyspnea, Leg cramp. 10 1 min recovery 100 146/88 none 3 min recovery 76 138/98 none 6 min recovery 79 132/84 none
== END ==
PROVIDERS: PCP Physician Assistant; Visit Provider Physician Assistant
DX: R07.9 Chest pain, unspecified (principal); R06.00 Dyspnea, unspecified
CPT/HCPCS: 93017

== ENCOUNTER 2022-12-17 09:42 | Outpatient (CLI) | payer MEDICAID, SELFPAY ==
--- NOTE | 2022-12-17 09:30 | RT.EKG_ITS ---
APPROVED REPORT Exam: Resting ECG Reason for Exam: f/u Patient Location: O HR:66 bpm ECG Measurements Heart Rate 66 AXIS NV 149 P 78 QRSd 80 QRS 50 QT 397 T 81 QTc 416 Conclusion Sinus rhythm...normal P axis, V-rate 50- 99 Probable left atrial enlargement...P >50mS, <-0.10mV V1 Probable inferior infarct, old...Q>35mS, II III aVF
== END 2022-12-17 09:43 | disposition home or self-care (01) ==
LOC: DI.CARD 09:42
PROVIDERS: PCP Physician Assistant; Visit Provider Internal Medicine Cardiovascular Disease
DX: I21.9 Acute myocardial infarction, unspecified (principal)
CPT/HCPCS: 93010

== ENCOUNTER → 2023-01-08 02:18 | Outpatient (CLI) | payer MEDICAID, SELFPAY ==
--- NOTE | 2023-01-08 08:30 | DI.CTLCSR_ITS ---
Exam(s) CT CHEST LUNG CANCER SCREEN EXAM: CT CHEST LUNG CANCER SCREEN CLINICAL HISTORY: TOBACCO DEPENDENCE, F17.200, CIGARETTE SMOKER,F17.210,SCREENING FOR LUNG CA. TECHNIQUE: Imaging Protocol: Low Dose Technique CONTRAST MATERIAL: None COMPARISON: CR,XR XR CHEST 2V PA LATERAL from 10/06/2022 FINDINGS: CHEST: LUNGS: There is a calcified granuloma in the right lung base posterior basal segment right lower lobe . This measures 7 mm size and there is some mild surrounding increased density but no discernible ma ss in the lung at this level. There is also a partially calcified nodule in the lateral aspect of th e right upper lobe peripherally located and measuring 6 mm and probably another granuloma.. There ar e no significant nodules evident in the opposite-left lung. Tiny benign-appearing fissure related 2 millimeter nodule is noted. There are no confluent infiltrates in either lung field . No pleural ef fusions. MEDIASTINUM: There is no obvious hilar nor mediastinal adenopathy. Small benign calcified lymph node in the right hilum is noted, this ipsilateral to the right lung calcified granulomas. CARDIAC: Heart size is normal. There is no pericardial effusion.Caliber of the thoracic aorta is wit hin normal limits. OTHER: Left kidney not seen and may be surgically absent. Some peripheral calcifications noted in th e capsule of the right kidney. OSSEOUS: No significant osseous lesions.No fractures.. IMPRESSION: 1. Benign calcified granulomas in the right lung. No ominous pulmonary nodules. 2. No infiltrates nor pleural effusions nor significant intrathoracic adenopathy. 3. Lung RADS Cat 2 - Benign Appearance / Behavior: Nodules with a very low likelihood of becoming a c linically active cancer due to size or lack of growth Lung-RADS 1.0 CATEGORIES: Category 0 - Prior chest CT exam(s) being located for comparison. Category 1 - Annual screening in 12 months. No nodules or definitely benign nodules. Category 2 - Annual screening in 12 months. Benign appearance. Nodules with low likelihood of becomin g active cancer. Category 3 - 6-month follow-up. Probably benign. Short-term follow-up suggested. Nodules with low lik elihood of becoming active cancer. Category 4A - 3-month follow-up and CT/PET if >8 mm in size. Suspicious finding. Findings which requi re additional testing. Category 4B - Findings which require additional testing and tissue sampling. Category 4X - Category 3 or 4 nodules with additional features or imaging findings that increases the suspicion of malignancy. Modifier S- Potentially clinically significant findings (non lung cancer) RADIATION DOSE DELIVERED: 88.16mGy.cm Total DLP DATA REPOSITORY: All CT scans at this facility are submitted to the National Radiology Data Registry (NRDR) Dose Index Registry (DIR) with the [employer] (ACR). RADIATION OPTIMIZATION: All CT scans at this facility use at least one of these dose optimization te chniques: automated exposure control; mA and/or kV adjustment per patient size (includes targeted exa ms where dose is matched to clinical indication); or iterative reconstruction.
== END ==
PROVIDERS: PCP Physician Assistant; Visit Provider Nurse Practitioner Family
DX: Z12.2 Encounter for screening for malignant neoplasm of respiratory organs (principal); F17.210 Nicotine dependence, cigarettes, uncomplicated; J84.10 Pulmonary fibrosis, unspecified
CPT/HCPCS: 71271

== ENCOUNTER 2023-03-30 20:37 | Emergency (ER) | payer MEDICAID, SELFPAY ==
[2023-03-30 20:42] VITALS: BP 135/82; PULSE 76; RESP 16; TEMP 36.9; O2SAT 98
--- NOTE | 2023-03-30 20:47 | ED.GENADUL_ITS ---
Discharge Plan Disposition Patient Disposition: Home Condition: Stable Discharge Details Clinical Impression: Right ear pain Primary Care Provider: Rahul Jones ED Provider: Severo Haines Home Meds and New Rx's Prescriptions: Continued tamsulosin 0.4 mg capsule 0.4 mg PO DAILY docusate sodium [Colace] 100 mg capsule 100 mg PO BID Qty: 60 0RF polyethylene glycol 3350 [Miralax] 17 gram/dose powder 17 g PO BID Qty: 510 0RF Discharge Instructions Instructions: Earache (ED) Additional Instructions: You were seen in the emergency department for your right ear pain, there is no sign of infection overtly, you have a lymphadenopathy of your right tonsillar lymph node but your strep test is negative, there is no sign of peritonsillar abscess. You have likely been using far too many Q-tips, that is not advised for your ear. There is no signs of infection within the ear itself but I did provide you with eardrops for possible external ear infection, these do contain a steroid which should soothe any inflammation in the area. I sent you home with a take-home pack of hydrocodone for pain as pharmacies are closed, I recommend that you follow-up with an ENT provider for definitive diagnosis if you have been having pain for months you should pursue definitive follow-up. I have forwarded your ED visit to Dr. Jacinto who is an ENT provider that rotates through [facility]. Please return to the emergency department for worsening ear pain especially with fever despite treatment, any difficulty swallowing or severe increase in your neck swelling USE PROVIDED EAR DROPS 5 DROPS in R EAR FOUR TIMES PER DAY FOR 5-7 DAYS Referrals: Rahul Jones [Primary Care Provider] - Nando Jacinto MD [ [facility] STAFF PHYSICIAN] - (chronic R ear pain, hx suppurative otitis media) Medical Decision Making This dictation utilizes [id number] dictation software and may contain unedited grammatical errors. 57 y/o M presents to ED today with a chief complaint of chronic R ear pain, reporting clear drainage, R tonsillar lymphadenopathy without URI symptoms. 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 Patients' medical history: history mastoiditis, chronic otitis media with effusion, history TM perforation. Family and social history: noncontributory. 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 Differential / pathologies of concern include otomycosis, ear trauma, chronic otitis media, peritonsillar abscess, strep pharyngitis. Diagnostic studies of: -Rapid Strep - [ ]. Interventions of: -APAP, Toradol, Acetic acid/hydrocortisone otic drops, recommend ENT follow-up. ED Course/Assessment/Plan: 57-year-old male patient seen with chronic right ear problems states for the past month he has had significant right ear pain now is having right tonsillar lymphadenopathy, rapid strep is negative he has no overt signs of peritonsillar abscess or pharyngitis, there is no sign of mastoiditis on physical exam and is right TM appears benign, there is some white exudate in the canal but I do not suspect otomycosis versus his excessive use of Q-tips in his chronic history and likelihood of scar tissue in the otic canal, regardless of this I did send him home with acetic acid and hydrocortisone otic drops for hopeful symptomatic relief as well as to go pack of hydrocodone for pain, recommend therapeutic dosing Tylenol and ibuprofen and follow-up with an ENT provider. Findings not consistent with mastoiditis, abscess. Disposition of Right Ear Pain. Patient verbalized understanding of the plan and return to ED criteria and engaged in shared decision making. Medical Records Medical records reviewed: Yes I reviewed the patient's medical records. HPI General Date/Time Provider Initiated Documentation: 03/30/23 20:41 . HPI Narrative: 57 year-old male presents to ED today by POV/ambulating with a chief complaint of R ear pain for months, reports clear drainage- has been deaf in R ear since childhood, reports multiple ear surgeries but not sure which, states no ear tubes ever. States this pain has been going on months, and now has a tender spot at the R angle of mandible, takes care of three kids, reports one had a sore throat and some cough but denies history in himself. Quality described as using many many Q-tips on his ear, states his ear becomes itchy, questions fungal infection in his ear per PCP provider?, no radiation to fever, mastoid tenderness, tinnitus, cough, chest pain, shortness of breath. Severity is described as severe. Palliating factors include OTC analgesics without relief. Provoking factors include nothing specific. Patient not anticoagulated. Related Data Home Medications Medication Instructions Recorded Confirmed docusate sodium 100 mg capsule 100 mg PO BID #60 caps 09/24/22 03/30/23 (Colace) polyethylene glycol 3350 17 17 g PO BID #510 grams 09/24/22 03/30/23 gram/dose oral powder (Miralax) tamsulosin 0.4 mg capsule 0.4 mg PO DAILY 12/17/22 03/30/23 Previous Rx's Medication Instructions Recorded docusate sodium 100 mg capsule 100 mg PO BID #60 caps 09/24/22 (Colace) polyethylene glycol 3350 17 17 g PO BID #510 grams 09/24/22 gram/dose oral powder (Miralax) Allergies Allergy/AdvReac Type Severity Reaction Status Date / Time Penicillins Allergy Severe Anaphylaxis Verified 03/30/23 20:46 tramadol [From Ultram] AdvReac Intermediate Nausea, Verified 03/30/23 20:46 vomiting meloxicam AdvReac Mild I just Verified 03/30/23 20:46 dont like taking it, Im not allergic. General Stated Complaint: EarProblem DRU: 4 Review of Systems All systems reviewed & are unremarkable except as noted in HPI and below PFSH All Active Problems (Updated 03/30/23 @ 21:20 by EMANUEL Rosa) Right ear pain (Acute) Myocardial infarct (Chronic) Renal cell carcinoma (Acute) Tobacco dependence (Acute) Depressed (Chronic) Anxiety disorder (Acute) CAD (coronary artery disease) (Chronic) Aorta aneurysm (Chronic) Dysphagia (Acute) Chest pain (Acute) Dyspnea (Acute) Rectal fissure (Acute) Hematuria (Acute) Pancreatitis (Chronic) Abdominal pain (Acute) Lumbago (Acute) Medical History Benign prostatic hyperplasia with weak urinary stream (05/01/17) Chronic otitis media of right ear Chronic otitis media with effusion (01/03/14) Family history of prostate cancer in father (05/01/17) Hearing loss Heart murmur Hx of cataract Mastoiditis (01/24/14) Mixed hearing loss, unilateral (01/24/14) Tympanic membrane perforation Tympanic membrane perforation (01/03/14) Surgical History Arthroscopy, Shoulder right ear surgery right ear for otitis media Extraction of cataract left History of nephrectomy, left Nephrectomy left side-for cysts (benign) Repair of inguinal hernia (05/07/17) right wrist surgery right- for tendon injury secondary to laceration Family History Other Bronchitis Heart disease Lymphoma Melanoma Thyroid cancer Social History Smoking/Tobacco Use Status: Current every day Tobacco Type: cigarettes Years smoked: 45 Smoking risk assessment performed?: Yes Alcohol Intake: former Drug use: Daily Substance use type: marijuana Details: DABS oil Housing: house Do you feel safe at home: Yes Do you feel safe in your relationship?: Yes Additional Social history: has custody of 3 grand children Exam Narrative Exam Narrative: GENERAL APPEARANCE: Well-nourished, non-toxic, awake and alert, atraumatic, no acute distress. SKIN: Warm, pink, dry, intact, without rashes/lesions/ulcerations. HEAD: Normocephalic, atraumatic, normal hair distribution for gender/age. EYES: Pupils PERRLA, EOMs intact without nystagmus, normal conjunctiva, no exudates on lids/lashes. ENT: Nares patent, no circumoral cyanosis, no facial swelling, uvula midline, R tonsillar lymphadenopathy, no vocal hoarseness, managing secretions well R TM WNL, no erythema to canal, no fluid levels seen, no mastoid tenderness/bogginess, does have some white exudate on canal but I question chronic changes from scarring vs fungal etiology L TM WNL NECK: Supple, trachea midline, painless cervical ROM. LUNGS/CHEST: Non-labored respirations, normal A/P diameter, symmetrical expansion, no chest wall deformity HEART (CV/PV): No peripheral edema, no JVD. ABDOMEN: Soft, non-distended, no guarding. MSK: Normal ROM, no swelling/deformity to bilateral UEs or LEs, moving all extremities without weakness, no cyanosis, spine midline without tenderness, normal curvature. NEURO: Mental Status AAOx4 - alert to person, place, time, events No facial droop, no forehead involvement. Motor: No focal weakness - strength 5/5 in bilateral UEs and LEs, proximal and distal, symmetric. Sensory: sensation intact to light touch globally. Gait normal: patient ambulated without ataxia into ED room. PSYCH: euthymic, cooperative, pleasant, appropriate speech Course Vital Signs Vital signs: Vital Signs Temperature 36.9 C 03/30/23 20:42 Pulse 76 03/30/23 20:42 Respiratory Rate 16 03/30/23 20:42 Blood Pressure 135/82 03/30/23 20:42 Pulse Oximetry 98 03/30/23 20:42 Temperature 36.9 C 03/30/23 20:42 Temperature Source Temporal Artery Scan 03/30/23 20:42 Pulse 76 03/30/23 20:42 Respiratory Rate 16 03/30/23 20:42 Blood Pressure 135/82 03/30/23 20:42 Blood Pressure Position Sitting 03/30/23 20:42 Pulse Oximetry 98 03/30/23 20:42 Oxygen Delivery Method Room Air 03/30/23 20:42 Oxygen Flow Rate 0 03/30/23 20:42 Pain Level 9 03/30/23 20:42 Comment 2/10 at rest, 9/10 with movement 03/30/23 20:42
[2023-03-30 20:56] VITALS: BP 135/82; PULSE 76; RESP 16; TEMP 36.9; O2SAT 98
[2023-03-30] MEDS: Acetaminophen 500 MG TAB 1000 MG PO (21:11)
[2023-03-30] MEDS: Ketorolac 10 MG TAB PO (21:12)
[2023-03-30 21:41] VITALS: BP 128/78; PULSE 72; RESP 16; O2SAT 98
== END 2023-03-30 21:41 | disposition home or self-care (01) ==
PROVIDERS: Emergency Provider Physician Assistant; PCP Physician Assistant
DX: H92.01 Otalgia, right ear (principal); R59.0 Localized enlarged lymph nodes; I25.2 Old myocardial infarction; I25.10 Atherosclerotic heart disease of native coronary artery without angina pectoris; F17.210 Nicotine dependence, cigarettes, uncomplicated
CPT/HCPCS: 87880; 99283; 99282

== ENCOUNTER 2023-08-04 05:52 | Outpatient (CLI) | payer OTHER, SELFPAY ==
--- NOTE | 2023-08-04 13:47 | W.6MWT ---
Date of service: 08/04/23 Time of Service: 10:11 6 Minute Walk Test Note: 6 Minute Walk Test Distance walked: 1300 feet Desaturations: No desaturations seen. Heart rate changes: No significant changes Recommendation: No supplemental oxygen requirements with exertion Milli Gutierrez MD Pulmonary & Critical Care Medicine
--- NOTE | 2023-08-04 13:49 | W.PFT ---
Date of service: 08/04/23 Time of Service: 10:23 Pulmonary Function Test Result Indications: Disability Interpretation Spirometry: There is moderate airflow limitation. Positive bronchodilator response. Impression Moderate airflow obstruction with a bronchodilator response. Clinical Correlation therefore is recommended.
[2023-08-04] MEDS: Levalbuterol HFA 15 GM INH 4 PUFF IH (14:44)
[2023-08-04] MEDS: Inhaler, Assist Device 1 EACH MC (14:44)
== END 2023-08-04 05:53 | disposition home or self-care (01) ==
LOC: RT 05:52
PROVIDERS: PCP Physician Assistant; Visit Provider Student in an Organized Health Care Education/Training Program
DX: Z02.71 Encounter for disability determination (principal)
CPT/HCPCS: 94060

== ENCOUNTER 2024-05-26 10:27 | Emergency (ER) | payer MEDICAID, SELFPAY ==
[2024-05-26 10:46] VITALS: BP 128/80; PULSE 74; RESP 22; TEMP 36.7; O2SAT 96
--- NOTE | 2024-05-26 11:05 | W.ED.GENAD ---
Discharge Plan Disposition Patient Disposition: Home Condition: Good Discharge Details Clinical Impression: Bronchitis, URI (upper respiratory infection) Primary Care Provider: Rahul Jones ED Provider: Severo Galindo Home Meds and New Rx's Prescriptions: New prednisone 50 mg tablet 50 mg PO DAILY Qty: 5 0RF doxycycline hyclate 100 mg tablet 100 mg PO BID Qty: 20 0RF loratadine 10 mg capsule 10 mg PO DAILY Qty: 20 0RF No Action tamsulosin 0.4 mg capsule 0.4 mg PO DAILY docusate sodium [Colace] 100 mg capsule 100 mg PO BID Qty: 60 0RF polyethylene glycol 3350 [Miralax] 17 gram/dose powder 17 g PO BID Qty: 510 0RF Discharge Instructions Instructions: Acute bronchitis Additional Instructions: At this time your symptoms are concerning for bronchitis with potential early pneumonia. This likely started as a virus but is now transitioning to a bacterial component. Please take the antibiotic doxycycline as directed. Please make sure to take it with food otherwise will cause nausea and vomiting. Avoid use with calcium based supplements as this will decrease its effectiveness. Please take the Symbicort inhaler, 2 puffs every 12 hours for the next 1 to 2 weeks. Please take the loratadine to help with your sinus congestion and nasal discharge. Please take the prednisone as prescribed. If you notice any worsening of your symptoms, or any new symptoms such as vomiting, diarrhea, fever, chills, shortness of breath, chest pain, numbness, weakness, or fainting , please return immediately to the emergency department for reevaluation. Please follow up with your primary care provider as soon as possible for reassessment and reevaluation. As always, it was a pleasure participating in your medical care today. Referrals: Rahul Jones [Primary Care Provider] - Discharge Data Discharge Date/Time-TO BE ENTERED AT DEPARTURE: 05/26/24 11:24 HPI General Date/Time Provider Initiated Documentation: 05/26/24 10:49. HPI Narrative: This is a pleasant 58-year-old male who is [facility] who has a past medical history of previous MD, COPD, tobacco use, BPH, who presents today for evaluation of cough. Patient states that for the last week he has had chills, intermittent fever mild cough some mild shortness of breath. He denies any hemoptysis. Cough is productive. He denies any focal chest pain. He does not have any inhalers that he utilizes. No other complaints at this time. Related Data Home Medications ?Medication ?Instructions ?Recorded ?Confirmed docusate sodium 100 mg capsule 100 mg PO BID #60 caps 09/24/22 05/26/24 (Colace) polyethylene glycol 3350 17 17 g PO BID #510 grams 09/24/22 05/26/24 gram/dose oral powder (Miralax) tamsulosin 0.4 mg capsule 0.4 mg PO DAILY 12/17/22 05/26/24 doxycycline hyclate 100 mg tablet 100 mg PO BID #20 tabs 05/26/24 loratadine 10 mg capsule 10 mg PO DAILY #20 caps 05/26/24 prednisone 50 mg tablet 50 mg PO DAILY #5 tabs 05/26/24 Previous Rx's ?Medication ?Instructions ?Recorded docusate sodium 100 mg capsule 100 mg PO BID #60 caps 09/24/22 (Colace) polyethylene glycol 3350 17 17 g PO BID #510 grams 09/24/22 gram/dose oral powder (Miralax) doxycycline hyclate 100 mg tablet 100 mg PO BID #20 tabs 05/26/24 loratadine 10 mg capsule 10 mg PO DAILY #20 caps 05/26/24 prednisone 50 mg tablet 50 mg PO DAILY #5 tabs 05/26/24 Allergies Allergy/AdvReac Type Severity Reaction Status Date / Time Penicillins Allergy Severe Anaphylaxis Verified 05/26/24 10:49 tramadol (From Ultram) AdvReac Intermediate Nausea, Verified 05/26/24 10:49 vomiting meloxicam AdvReac Mild I just Verified 05/26/24 10:49 dont like taking it, Im not allergic. General Stated Complaint: RespSymp DRU: 3 Exam Narrative Exam Narrative: 1.Const: Well-nourished, Well-developed, appearing stated age 2.Eyes: PERRL, no conjunctival injection, and symmetrical lids. 3.ENT: Atraumatic external nose and ears. Moist MM. Neck: Symmetric, trachea midline, No thyromegaly. 4.CVS: +S1/S2, Peripheral pulses 2+ and equal in all extremities. Brisk capillary refill in all extremities. 5.RESP: Unlabored respiratory effort. Minimal wheezing crackles. 6.GI: Soft, Nontender/Nondistended, No hepatosplenomegaly. No guarding or rebound. 7.MSK: Normocephalic/Atraumatic, Extremities w/o deformity or ttp No cyanosis or clubbing, Normal movement of all extremities 8.Skin: Warm, Dry. No rashes or lesions. 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 Sensation grossly intact, no focal neurologic deficits. 10.Psych: (AAO) x3. Appropriate mood and affect Course Vital Signs Vital signs: Vital Signs Temperature 36.7 C 05/26/24 10:46 Pulse 74 05/26/24 10:46 Respiratory Rate 22 05/26/24 10:46 Blood Pressure 128/80 05/26/24 10:46 Pulse Oximetry 96 05/26/24 10:46 Temperature 36.7 C 05/26/24 10:46 Pulse 74 05/26/24 10:46 Respiratory Rate 22 05/26/24 10:46 Blood Pressure 128/80 05/26/24 10:46 Pulse Oximetry 96 05/26/24 10:46 Oxygen Delivery Method Room Air 05/26/24 10:46 Oxygen Flow Rate 0 05/26/24 10:46 Pain Level 0 05/26/24 10:46 Medical Decision Making This is a pleasant 58-year-old male who is [facility] who has a past medical history of previous MD, COPD, tobacco use, BPH, who presents today for evaluation of cough. Patient states that for the last week he has had chills, intermittent fever mild cough some mild shortness of breath. He denies any hemoptysis. Cough is productive. He denies any focal chest pain. He does not have any inhalers that he utilizes. No other complaints at this time. Exam demonstrates well-appearing male, vital signs stable no hypoxemia. Bedside ultrasound was performed demonstrates few scattered intermittent B-lines, no large amount of consolidation but evidence of some mild early consolidation near the apices. With the patient's risk factors of tobacco use, cardiac disease, he has persistent week of cough fever and chills, I am concerned for clinical pneumonia with the ultrasound findings. Patient would benefit from antibiotic therapy to prevent worsening of disease process, we will start doxycycline, will give Symbicort inhaler for home use, will start with short course of prednisone for component of reactive airway disease. Discussed red flags which to return. I have extensively reviewed the treatment plan and discharge instructions with the patient. I have addressed all patient concerns at this time. The patient was made aware of what symptoms to monitor for that would warrant a return to the emergency department. Discussed the plan with the patient, they demonstrate verbal understanding and agreement with our assessment and plan at this time. The documentation in this chart was dictated using [employer] dictation software. Please excuse any dictation errors. Quality:SDOH Health Related Social Needs: No Data to Display PFSH All Active Problems (Updated 05/26/24 @ 11:07 by Severo Galindo DO) URI (upper respiratory infection) (Acute) Bronchitis (Acute) Myocardial infarct (Chronic) Renal cell carcinoma (Acute) Tobacco dependence (Acute) Depressed (Chronic) Anxiety disorder (Acute) CAD (coronary artery disease) (Chronic) Aorta aneurysm (Chronic) Dysphagia (Acute) Chest pain (Acute) Dyspnea (Acute) Rectal fissure (Acute) Hematuria (Acute) Pancreatitis (Chronic) Abdominal pain (Acute) Lumbago (Acute) Medical History Benign prostatic hyperplasia with weak urinary stream (05/01/17) Chronic otitis media of right ear Chronic otitis media with effusion (01/03/14) Family history of prostate cancer in father (05/01/17) Hearing loss Heart murmur Hx of cataract Mastoiditis (01/24/14) Mixed hearing loss, unilateral (01/24/14) Tympanic membrane perforation Tympanic membrane perforation (01/03/14) Surgical History Arthroscopy, Shoulder right ear surgery right ear for otitis media Extraction of cataract left History of nephrectomy, left Nephrectomy left side-for cysts (benign) Repair of inguinal hernia (05/07/17) right wrist surgery right- for tendon injury secondary to laceration Family History Other Bronchitis Heart disease Lymphoma Melanoma Thyroid cancer Social History Smoking/Tobacco Use Status: Current every day Tobacco Type: cigarettes Years smoked: 45 Smoking risk assessment performed?: Yes Alcohol Intake: former Drug use: Daily Substance use type: marijuana Details: DABS oil Housing: house Do you feel safe at home: Yes Do you feel safe in your relationship?: Yes Additional Social history: has custody of 3 grand children POCUS Exam (ED) Limited Thoracic Lung Exam DATE OF EXAM: 05/26/24 TIME OF EXAM: 16:13 PROVIDER THAT PERFORMED THE STUDY: Severo Galindo IS THIS A REPEAT EXAM DURING THIS ENCOUNTER: No REASON FOR EXAM: Pneumonia VISUALIZED STRUCTURES: right posterior and left posterior PERTINENT FINDINGS/IMPRESSION: B-lines/left side and B-lines/right side DIFFERENTIAL DIAGNOSES: Mild early pneumonia Exam complete
[2024-05-26] MEDS: Budesonide/Formoterol 160/4.5 6 GM 60 PUFF INH IH (11:19)
[2024-05-26 11:42] LABS: COVID-19 PCR Negative (Negative); Influenza A PCR Negative (Negative); Influenza B PCR Negative (Negative); RSV PCR Negative (Negative); Source Nasopharynx
== END 2024-05-26 11:24 | disposition home or self-care (01) ==
PROVIDERS: Emergency Provider Student in an Organized Health Care Education/Training Program; PCP Physician Assistant
DX: J40 Bronchitis, not specified as acute or chronic (principal); J06.9 Acute upper respiratory infection, unspecified; I25.10 Atherosclerotic heart disease of native coronary artery without angina pectoris; I25.2 Old myocardial infarction; J44.9 Chronic obstructive pulmonary disease, unspecified; F17.210 Nicotine dependence, cigarettes, uncomplicated
CPT/HCPCS: 76604; 87637; 99284

== ENCOUNTER 2024-06-24 17:17 | Emergency (ER) | payer MEDICAID, SELFPAY ==
[2024-06-24] VITALS (18 sets, daily range): BP systolic 121–133; BP diastolic 61–84; PULSE 63–84; RESP 13–24; TEMP 36.3; O2SAT 95–98
--- NOTE | 2024-06-24 17:30 | RT.EKG_ITS ---
APPROVED REPORT Exam: Resting ECG Reason for Exam: chest pain Patient Location: E HR:76 bpm ECG Measurements Heart Rate 76 AXIS IL 148 P 81 QRSd 73 QRS -36 QT 369 T 88 QTc 415 Conclusion Sinus rhythm 76 normal axis no stemi
--- NOTE | 2024-06-24 17:45 | DI.CT_ITS ---
Exam(s) CT THORAX ABD/PEL CTA EXAM: CT THORAX ABD/PEL CTA CLINICAL HISTORY: aneurysm. TECHNIQUE: Imaging Protocol: Axial CT angiography was performed with multi-slice acquisition and m ulti-planar and/or 3D reconstructions. Lung Computer Aided Detection (CAD) was utilized. CONTRAST MATERIAL: Intravenous: Omnipaque 350 contrast volume:70 mL Oral: No COMPARISON: CT CT ABDOMEN PELVIS W from 10/06/[address] CHEST LUNG CANCER SCREEN from 01/08/2023 FINDINGS: CHEST: Tracheobronchial tree: Patent where visualized. There is no evidence of bronchiectasis. Pulmonary parenchyma: Centrilobular emphysematous changes are present in the lungs. There is a calci fied granuloma in the right lower lobe. No focal consolidating infiltrates are present. There is a stable nodule in the lateral aspect of the right upper lobe (series 16, image 81). No new pulmonary nodules are present. Pulmonary Arteries: No large central pulmonary embolism is present. Mediastinum and Saida: No dominant adenopathy or fluid collection. The esophagus is unremarkable. Visualized thyroid: Unremarkable. Pleura: No effusion or pneumothorax. Heart: The heart is not dilated. No coronary artery calcifications are seen. No pericardial effusion. Aorta: Thoracic aorta non-dilated. Atherosclerotic calcification is present. No aneurysm or dissecti on is present. Soft Tissues: Unremarkable. Bones: Within normal limits for the patient's age. ABDOMEN AND PELVIS: Abdomen: Celiac axis/mesenteric arteries: No evidence of occlusion or significant stenosis. Renal Arteries: No evidence of occlusion or significant stenosis. Aorta: No evidence of occlusion or significant stenosis. The infrarenal abdominal aortic aneurysm n ow measures 4.4 x 4.3 cm compared to 3.7 cm on the prior examination. There is no evidence of dissec tion. Atherosclerotic calcification is present. Pelvis: Iliac Arteries: No evidence of occlusion or significant stenosis. The right common iliac artery deven sures 2.0 cm in diameter. Common Femoral Arteries: No evidence of occlusion or significant stenosis. ABDOMEN: Liver: Normal density. There is a stable small cyst in the left lobe of the liver. No follow-up is r ecommended. No suspicious hepatic masses are seen. Portal, superior mesenteric and splenic veins: Unremarkable. Gallbladder and Biliary Tract: No radiodense calculus or dilation. Pancreas: Normal density, no abnormal calcifications or inflammatory process. Spleen: Normal. Adrenals: No masses seen. Kidneys: There has been a left nephrectomy. The right kidney is normal in size. No radiodense stone s or obstructive uropathy. No masses seen. Bowel: No obstruction or bowel wall thickening. There is no evidence of appendicitis. Peritoneal Cavity: No ascites, collection or mesenteric inflammatory response. No free air. Lymph Nodes: Within normal limits. Bones: Within normal limits for the patient's age. Soft Tissues: Unremarkable. PELVIS: Bladder: Symmetric distention, no gross wall thickening. Reproductive Organs: Unremarkable as visualized. Lymph Nodes: Within normal limits. Bones: Within normal limits for the patient's age. IMPRESSION: 1. Interval increase in size of the infrarenal abdominal aortic aneurysm which now measures 4.4 cm. No evidence of dissection/rupture. 2. No acute pulmonary process. 3. No acute abdominal or pelvic process. RADIATION DOSE DELIVERED: 468.75mGy.cm Total DLP DATA REPOSITORY: All CT scans at this facility are submitted to the National Radiology Data Registry (NRDR) Dose Index Registry (DIR) with the [employer] (ACR). RADIATION OPTIMIZATION: All CT scans at this facility use at least one of these dose optimization te chniques: automated exposure control; mA and/or kV adjustment per patient size (includes targeted exa ms where dose is matched to clinical indication); or iterative reconstruction.
[2024-06-24] MEDS: Omnipaque 350 MG/ML 100 ML BTL IJ (17:59)
[2024-06-24] MEDS: Normal Saline - Diluent 50 ML VIAL IJ (17:59)
[2024-06-24 18:02] LABS: Abs Immature Grans 0.03 10^3/uL (0.0-0.06); Absolute Basophil Count 0.08 10^3/uL (0.0-0.2); Absolute Eosinophil Count 0.48 10^3/uL (0.0-0.7); Absolute Monocyte Count 0.94 10^3/uL (0.1-0.8); Absolute Neutrophil Count 5.59 10^3/uL (1.2-6.7); Basophils % 0.8 %; HCT 46.1 % (40.0-50.0); HGB 15.3 g/dL (13.5-17.5); Immature Grans % 0.3 %; MCH 30.8 pg (27.0-33.0); MCHC 33.2 % (32.0-36.0); MCV 93 fL (80-95); MPV 8.7 fL (8.0-11.0); Monocytes % 9.8 %; Neutrophils % 58.1 %; Platelet Count 380 10^3/uL (130-400); RBC 4.96 10^6/uL (4.36-5.78); RDW 14.2 % (11.8-14.1); RDW-SD 48.8 fL; WBC 9.62 10^3/uL (4.4-10.8)
[2024-06-24] MEDS: Aspirin 325 MG TAB PO (18:03)
[2024-06-24] MEDS: nitroGLYcerin 0.4 MG TAB SL (18:04)
[2024-06-24 18:22] LABS: ALT 22 U/L (16-63); AST 21 U/L (15-37); Albumin 3.4 g/dL (3.4-5.0); Alkaline Phosphatase 97 U/L (46-116); Anion Gap 6.8 mmol/L (3-11); BUN 25 mg/dL (7-18); Bilirubin, Total 0.3 mg/dL (0.2-1.0); CO2 29.2 mmol/L (21.0-32.0); CREATININE 1.2 mg/dL (0.70-1.30); Chloride 105 mmol/L (98-107); Estimated GFR 69.66 (mL/min/1.73m2); Glucose 90 mg/dL (74-106); Potassium 4.6 mmol/L (3.5-5.1); Sodium 141 mmol/L (136-145); Total Protein 7.4 g/dL (6.4-8.2); Troponin I 15 ng/L (<or=76)
[2024-06-24] MEDS: Acetaminophen 500 MG TAB 1000 MG PO (18:53)
[2024-06-24 19:22] LABS: Troponin I 16 ng/L (<or=76)
--- NOTE | 2024-06-24 20:36 | ED.GENADUL_ITS ---
Discharge Plan Disposition Patient Disposition: Home Discharge Details Clinical Impression: Intermittent left-sided chest pain, Aorta aneurysm Primary Care Provider: Rahul Jones ED Provider: London Ramos Home Meds and New Rx's Prescriptions: No Action tamsulosin 0.4 mg capsule 0.4 mg PO DAILY prednisone 50 mg tablet 50 mg PO DAILY Qty: 5 0RF loratadine 10 mg capsule 10 mg PO DAILY Qty: 20 0RF docusate sodium [Colace] 100 mg capsule 100 mg PO BID Qty: 60 0RF polyethylene glycol 3350 [Miralax] 17 gram/dose powder 17 g PO BID Qty: 510 0RF Discharge Instructions Additional Instructions: Your EKG and blood work are reassuring. You had a CT scan that did not demonstrate an acute issue with your aorta, no rib fractures or pneumonia were noted Your enlargement of your aorta is slightly bigger and, please continue to follow-up with your PCP for this and routine surveillance Take your medications daily, return if you have worsening of symptoms or return of symptoms or any other concerns. HPI General Date/Time Provider Initiated Documentation: 06/24/24 17:39 . Limitations to Documentation: no limitations . Information obtained by: patient . HPI Narrative: 58-year-old gentleman with past medical history of CAD, aortic aneurysm, tobacco dependence presents for evaluation of left-sided chest pain. Has been constant for the last 2 days, not exertional, waxes and wanes in intensity, when the pain is severe it feels like it hurts to take a deep breath, but he does not feel short of breath. Reports that he smokes daily. Takes an aspirin daily, no history of high blood pressure. Related Data Home Medications ?Medication ?Instructions ?Recorded ?Confirmed docusate sodium 100 mg capsule 100 mg PO BID #60 caps 09/24/22 06/24/24 (Colace) polyethylene glycol 3350 17 17 g PO BID #510 grams 09/24/22 06/24/24 gram/dose oral powder (Miralax) tamsulosin 0.4 mg capsule 0.4 mg PO DAILY 12/17/22 06/24/24 loratadine 10 mg capsule 10 mg PO DAILY #20 caps 05/26/24 06/24/24 prednisone 50 mg tablet 50 mg PO DAILY #5 tabs 05/26/24 06/24/24 Previous Rx's ?Medication ?Instructions ?Recorded docusate sodium 100 mg capsule 100 mg PO BID #60 caps 09/24/22 (Colace) polyethylene glycol 3350 17 17 g PO BID #510 grams 09/24/22 gram/dose oral powder (Miralax) loratadine 10 mg capsule 10 mg PO DAILY #20 caps 05/26/24 prednisone 50 mg tablet 50 mg PO DAILY #5 tabs 05/26/24 Allergies Allergy/AdvReac Type Severity Reaction Status Date / Time Penicillins Allergy Severe Anaphylaxis Verified 06/24/24 17:23 tramadol (From Ultram) AdvReac Intermediate Nausea, Verified 06/24/24 17:23 vomiting meloxicam AdvReac Mild I just Verified 06/24/24 17:23 dont like taking it, Im not allergic. General Stated Complaint: Chest/Rib DRU: 3 Exam Narrative Exam Narrative: Review of Systems: All systems reviewed & are unremarkable except as noted in HPI and below Well-developed, no acute distress NCAT PERRL, normal conjunctiva RRR chest wall nontender, not hypertensive Unlabored respiratory effort clear bilaterally Nondistended abdomen soft nontender Extremities w/o edema no focal neurologic deficits Course Vital Signs Vital signs: Vital Signs Temperature 36.3 C L 06/24/24 17:20 Pulse 74 06/24/24 17:20 Respiratory Rate 18 06/24/24 17:20 Blood Pressure 130/84 06/24/24 17:20 Pulse Oximetry 97 06/24/24 17:20 Temperature 36.3 C L 06/24/24 17:20 Pulse 78 06/24/24 19:40 Pulse 76 06/24/24 19:40 Respiratory Rate 22 06/24/24 19:40 Respiratory Effort Normal 06/24/24 17:57 Respiratory Depth Normal 06/24/24 17:57 Respiratory Pattern Normal 06/24/24 17:57 Blood Pressure 121/73 06/24/24 19:56 Blood Pressure Mean 85 06/24/24 18:21 Pulse Oximetry 95 06/24/24 19:40 Pain Level 1 06/24/24 19:56 Lab/Test Results Lab/Test Results: Laboratory Tests Range/Units 06/24/24 06/24/24 06/24/24 17:55 18:55 20:40 WBC (4.4-10.8) 10^3/uL 9.62 RBC (4.36-5.78) 10^6/uL 4.96 Hgb (13.5-17.5) g/dL 15.3 Hct (40.0-50.0) % 46.1 MCV (80-95) fL 93 MCH (27.0-33.0) pg 30.8 MCHC (32.0-36.0) % 33.2 RDW (11.8-14.1) % 14.2 H Plt Count (130-400) 10^3/uL 380 MPV (8.0-11.0) fL 8.7 Immature Gran % % 0.3 Neutrophils % % 58.1 Lymphocytes % % 26.0 Monocytes % % 9.8 Eosinophils % % 5.0 Basophils % % 0.8 Nucleated RBC % (0.0-0.3) % 0.0 Absolute Neutrophils (1.2-6.7) 10^3/uL 5.59 Absolute Lymphocytes (1.2-3.4) 10^3/uL 2.50 Absolute Monocytes (0.1-0.8) 10^3/uL 0.94 H Absolute Eosinophils (0.0-0.7) 10^3/uL 0.48 Absolute Basophils (0.0-0.2) 10^3/uL 0.08 Sodium (136-145) mmol/L 141 Potassium (3.5-5.1) mmol/L 4.6 Chloride (98-107) mmol/L 105 Carbon Dioxide (21.0-32.0) mmol/L 29.2 Anion Gap (3-11) mmol/L 6.8 BUN (7-18) mg/dL 25 H Creatinine (0.70-1.30) mg/dL 1.2 Est GFR (CKD-EPI 2020) (mL/min/1.73m2) 69.66 Glucose (74-106) mg/dL 90 Calcium (8.5-10.1) mg/dL 9.0 Total Bilirubin (0.2-1.0) mg/dL 0.3 AST (15-37) U/L 21 ALT (16-63) U/L 22 Alkaline Phosphatase (46-116) U/L 97 Troponin I (<or=76) ng/L 15 16 Cancelled Total Protein (6.4-8.2) g/dL 7.4 Albumin (3.4-5.0) g/dL 3.4 Medical Decision Making Emergent evaluation of left-sided chest wall pain. Not exertional has been constant for the last 2 days. It is not typical cardiac pain, but the patient does have risk factors. He has a known aneurysm. I have a low suspicion for dissection. He does not have an acutely ischemic EKG. EKG interpreted: Sinus 76 normal axis no acute ischemic changes. The patient was given aspirin full dose, he was given nitroglycerin, but symptoms did not resolve and he was given a dose of Tylenol. A CTA was obtained to evaluate for possible complication result involving his aorta, the aneurysm was noted with slight enlargement though not to the size that should be addressed emergently. Advised that he should follow-up closely with his PCP for further monitoring and maintenance of this and known aneurysm. Patient's blood pressure has been stable. No sign of rib fracture or pneumonia on CT scan. Serial troponins have been negative. Although he does have risk factors, does not appear that this ongoing constant chest pain for 2 days is related to acute coronary syndrome. At this time he stable for discharge but I did have advised return precautions and recommend close follow-up with his PCP given his risk factors. Quality:SDOH Health Related Social Needs: No Data to Display PFSH All Active Problems (Updated 06/24/24 @ 19:51 by London Ramos MD) Intermittent left-sided chest pain (Acute) URI (upper respiratory infection) (Acute) Bronchitis (Acute) Myocardial infarct (Chronic) Renal cell carcinoma (Acute) Tobacco dependence (Acute) Depressed (Chronic) Anxiety disorder (Acute) CAD (coronary artery disease) (Chronic) Aorta aneurysm (Chronic) Dysphagia (Acute) Chest pain (Acute) Dyspnea (Acute) Rectal fissure (Acute) Hematuria (Acute) Pancreatitis (Chronic) Abdominal pain (Acute) Lumbago (Acute) Medical History Benign prostatic hyperplasia with weak urinary stream (05/01/17) Chronic otitis media of right ear Chronic otitis media with effusion (01/03/14) Family history of prostate cancer in father (05/01/17) Hearing loss Heart murmur Hx of cataract Mastoiditis (01/24/14) Mixed hearing loss, unilateral (01/24/14) Tympanic membrane perforation Tympanic membrane perforation (01/03/14) Surgical History Arthroscopy, Shoulder right ear surgery right ear for otitis media Extraction of cataract left History of nephrectomy, left Nephrectomy left side-for cysts (benign) Repair of inguinal hernia (05/07/17) right wrist surgery right- for tendon injury secondary to laceration Family History Other Bronchitis Heart disease Lymphoma Melanoma Thyroid cancer Social History Smoking/Tobacco Use Status: Current every day Tobacco Type: cigarettes Years smoked: 45 Smoking risk assessment performed?: Yes Alcohol Intake: former Drug use: Daily Substance use type: marijuana Details: DABS oil Housing: house Do you feel safe at home: Yes Do you feel safe in your relationship?: Yes Additional Social history: has custody of 3 grand children
== END 2024-06-24 20:16 | disposition home or self-care (01) ==
PROVIDERS: Emergency Provider Emergency Medicine; PCP Physician Assistant
DX: R07.89 Other chest pain (principal); I71.40 Abdominal aortic aneurysm, without rupture, unspecified; I25.10 Atherosclerotic heart disease of native coronary artery without angina pectoris; I25.2 Old myocardial infarction; F17.210 Nicotine dependence, cigarettes, uncomplicated; Z90.5 Acquired absence of kidney
CPT/HCPCS: 71275; 80053; 93005; 99285; 74174; 84484; 85025; 93010; 99284; J3490

== ENCOUNTER 2024-11-11 11:31 | Emergency (ER) | payer MEDICAID, SELFPAY ==
[2024-11-11] VITALS (25 sets, daily range): BP systolic 115–163; BP diastolic 74–96; PULSE 53–76; RESP 16–24; TEMP 36.6–36.8; O2SAT 96–99
--- NOTE | 2024-11-11 11:30 | RT.EKG_ITS ---
APPROVED REPORT Exam: Resting ECG Reason for Exam: son Patient Location: E HR:63 bpm ECG Measurements Heart Rate 63 AXIS HI 161 P 78 QRSd 76 QRS 65 QT 399 T 83 QTc 409 Conclusion Sinus rhythm...normal P axis, V-rate 60- 99 Probable left atrial enlargement...P >50mS, <-0.10mV V1 Probable inferior infarct, old...Q>35mS, II III aVF No Occlusion LA
--- NOTE | 2024-11-11 11:45 | ED.GENADUL_ITS ---
Discharge Plan Disposition Patient Disposition: Home Condition: Stable Discharge Details Clinical Impression: Chest pain of uncertain etiology, Pancreatitis Primary Care Provider: Rahul Jones ED Provider: Severo Haines Discharge Instructions Instructions: Chest Pain, Adult ED Additional Instructions: You were seen in the emergency department for your chest pain of uncertain cause, your cardiac workup showed multiple troponin tests is negative, your EKG shows no changes from prior, CTA of your chest shows no blood clot in the lungs, your aortic aneurysm appears to be of similar size of the abdomen below your kidneys. There is no pneumonia, you have some chronic lung nodules that need regular surveillance with CT scans. You have had a recent echocardiogram and stress test several years ago, I suggest you talk to primary care about updating his studies. Please return to the emergency department immediately if any further severe chest pain associated with sweating, shortness of breath, dizziness or near fainting. Use Tylenol and ibuprofen and OTC Voltaren gel to areas of pain for a trial of relief for possible musculoskeletal causes of chest pain. Referrals: Rahul Jones [Primary Care Provider, Medicine] Discharge Data Discharge Date/Time-TO BE ENTERED AT DEPARTURE: 11/11/24 15:09 HPI General Date/Time Provider Initiated Documentation: 11/11/24 11:43 . HPI Narrative: 58 year-old male presents to ED today by POV/ambulating with a chief complaint of 2 days of SOB, coughing, with L sided pleuritic chest pain. Quality described as difficulty clearing his lungs, some sharp intermittent chest pains not related to exercise, no radiation to diaphoresis, syncope, nausea/vomiting, fever, endorses some lightheadedness after coughing. Severity is described as moderate- pain currently a 3/10, was a 6/10 at its worst. Palliating factors include sitting up and leaning forward. Provoking factors include laying down. Events leading up to the incident/Associated Symptoms: Patient endorses cardiac history of a silent SC- has been a very heavy smoker since age 8, has a known aortic aneurysm. Patient not anticoagulated. Related Data Allergies Allergy/AdvReac Type Severity Reaction Status Date / Time Penicillins Allergy Severe Anaphylaxis Verified 06/24/24 17:23 tramadol (From Ultram) AdvReac Intermediate Nausea, Verified 06/24/24 17:23 vomiting meloxicam AdvReac Mild I just Verified 06/24/24 17:23 dont like taking it, Im not allergic. General Stated Complaint: SOB DRU: 3 Review of Systems All systems reviewed & are unremarkable except as noted in HPI and below Exam Narrative Exam Narrative: GENERAL APPEARANCE: Frail, non-toxic, awake and alert, atraumatic, no acute distress. SKIN: Warm, pale, dry, intact, without rashes/lesions/ulcerations. HEAD: Normocephalic, atraumatic, normal hair distribution for gender/age. EYES: Normal conjunctiva, no exudates on lids/lashes. ENT: Nares patent, no circumoral cyanosis, no facial swelling NECK: Supple, trachea midline, painless cervical ROM. LUNGS/CHEST: Lungs CTA bilaterally- no rhonchi/rales/wheezes diffusely, non- labored respirations, normal A/P diameter, symmetrical expansion, no chest wall deformity, has L sided mid-rib tenderness without crepitus HEART (CV/PV): Regular rate and rhythm without murmur, no peripheral edema, no JVD. ABDOMEN: Soft, non-distended, no guarding, negative Lozano's, no focal tenderness. MSK: Normal ROM, no swelling/deformity to bilateral UEs or LEs, moving all extremities without weakness, no cyanosis, spine midline without tenderness, normal curvature. NEURO: Mental Status AAOx4 - alert to person, place, time, events No facial droop, no forehead involvement. Motor: No focal weakness - strength 5/5 in bilateral UEs and LEs, proximal and distal, symmetric. Sensory: sensation intact to light touch globally. Gait normal: patient ambulated without ataxia into ED room. PSYCH: euthymic, cooperative, pleasant, appropriate speech Course Vital Signs Vital signs: Vital Signs Temperature 36.8 C 11/11/24 11:39 Pulse 70 11/11/24 11:39 Respiratory Rate 20 11/11/24 11:39 Blood Pressure 163/96 H 11/11/24 11:39 Pulse Oximetry 98 11/11/24 11:39 Temperature 36.8 C 11/11/24 11:39 Pulse 70 11/11/24 11:39 Respiratory Rate 20 11/11/24 11:39 Blood Pressure 163/96 H 11/11/24 11:39 Blood Pressure Position Sitting 11/11/24 11:39 Pulse Oximetry 98 11/11/24 11:39 Oxygen Delivery Method Room Air 11/11/24 11:39 Oxygen Flow Rate 0 11/11/24 11:39 Pain Level 2 11/11/24 11:39 Medical Decision Making This dictation utilizes [id number] dictation software and may contain unedited grammatical errors. 58 year-old male presents to ED today by POV/ambulating with a chief complaint of 2 days of SOB, coughing, with L sided pleuritic chest pain. Quality described as difficulty clearing his lungs, some sharp intermittent chest pains not related to exercise, with radiation to diaphoresis this morning but no radiation to syncope, nausea/vomiting, fever, endorses some lightheadedness after coughing. Severity is described as moderate- pain currently a 3/10, was a 6/10 at its worst. Palliating factors include sitting up and leaning forward. Provoking factors include laying down. Events leading up to the incident/Associated Symptoms: Patient endorses cardiac history of a silent SC- has been a very heavy smoker since age 8, has a known aortic aneurysm. Patients' medical history: COPD, history of SC, renal cell carcinoma, coronary artery disease, known abdominal aortic aneurysm history of pancreatitis, history of nephrectomy. Family and social history: 1-2 PPD since age 8, denies ETOH use, no illicit drug use, lives at home, has custody of 3 grandchildren. Pertinent exam findings / vital signs include 1/6 systolic murmur best heard at LSB, no wheezing with expiration, benign abdomen, no pulsatile masses. Differential / pathologies of concern include ACS, PE, pneumonia, pneumothorax, pleurisy, costochondritis, worsening abdominal aortic aneurysm lesser likelihood. Diagnostic studies of: - CBC, CMP, D-dimer, magnesium, serial troponins, BNP, lipase, UA, EKG, CTA chest PE study. - CBC shows no acute abnormalities - CMP shows no actionable abnormality - Serial troponins negative - BNP mild elevation, nonspecific - Lipase is elevated at 422, has history of pancreatitis- states sober for a long time, no epigastric tenderness - D-dimer significantly elevated, reflexing to CTA CHest - EKG without ischemic changes, shows old SC Interventions of: -324 CH ASA, 1g PO APAP, 400mg PO ibuprofen with relief. HEART Score LOW - reasonable for outpatient f/u. ED Course/Assessment/Plan: 58-year-old male presents with chest pain and sweating this morning with long smoking history since age 8, does not drink alcohol, states history of silent SC but no acute EKG changes, multiple troponins negative, CTA of the chest shows no PE, heart score is low reasonable for outpatient follow-up, trial OTC relievers for musculoskeletal chest pain. Patient was recommended for surveillance follow- up for his pulmonary nodules. Has elevated lipase, history of pancreatitis- no current intolerance for PO intake, recommend recheck lipase via PCP- attempted to contact patient about this result after visit but phone is off. Forwarded message to PCP for re-check. Findings not consistent with ACS, PE, pneumothorax, pneumonia, congestive heart failure, electrolyte derangement, biliary colic. Disposition of Chest Pain of Uncertain Etiology, Pancreatitis. Patient verbalized understanding of the plan and return to ED criteria and engaged in shared decision making. Medical Records Medical records reviewed: Yes I reviewed the patient's medical records. Imaging Data Radiologic Study: Attestation: I personally reviewed and interpreted this imaging study as follows: Imaging: CT Scan Radiologist's impression: EXAM: CT CHEST PE CTA CLINICAL HISTORY: elev d-dimer, chest pain. TECHNIQUE: Imaging Protocol: CT angiography of the chest was performed using pulmonary embolus protocol. Multi planar reconstructions were performed. CONTRAST MATERIAL: Intravenous: Omnipaque 350 Contrast volume: 65 cc COMPARISON: CT CT THORAX ABD/PEL CTA from 06/24/2024 FINDINGS: CHEST: PULMONARY ARTERIES: There are no intraluminal filling defects to suggest acute pulmonary emboli. LUNGS: There are no infiltrates nor evidence of pulmonary infarction.. There are no pleural effusions. There is a calcified granuloma again noted in the posterior basal segment of the right lower lobe. There is also a small 2 mm nodule in the lateral basal segment of the right lower lobe. Another small 2-3 mm nodule is noted in the mid right lower lobe, unchanged there is also an unchanged subpleural nodule measuring 4 mm in the lateral aspect of the right upper lobe, also unchanged. There are no significant focal findings in the left lung. MEDIASTINUM: There is no hilar nor mediastinal adenopathy. Visualized thyroid unremarkable. CARDIAC: Heart size is normal. There is no pericardial effusion. There is no shift of the interventricular septum.Caliber of the thoracic aorta is within normal limits. There is some reflux of intravenous contrast into the intrahepatic IVC and intrahepatic veins. Right side of the heart is not enlarged. There is no significant shift of the interventricular septum. PARTIALLY VISUALIZED UPPERMOST ABDOMEN: Left kidney is surgically absent. Right kidney appears unremarkable. There is an abdominal aortic aneurysm partially included in the field of view here and exhibiting maximum diameter of 4.2 cm in the field of view of this chest study. OSSEOUS: No significant osseous lesions.No fractures.. IMPRESSION: 1. No evidence of acute pulmonary emboli. No evidence of pulmonary infarction.No pleural effusions. 2. Are small stable pulmonary nodules in the right lung, the largest being in the lateral aspect of the right upper lobe and measuring 4 mm, unchanged. There is no intra thoracic adenopathy. Appropriate follow-up for these nodules would be repeat CT scan in 1 year. Lab Data Lab results reviewed: Yes I reviewed the patient's lab results. Labs: Laboratory Tests Range/Units 11/11/24 11/11/24 11/11/24 11:51 11:59 13:09 WBC (4.4-10.8) 10^3/uL 9.84 RBC (4.36-5.78) 10^6/uL 5.16 Hgb (13.5-17.5) g/dL 15.6 Hct (40.0-50.0) % 45.7 MCV (80-95) fL 89 MCH (27.0-33.0) pg 30.2 MCHC (32.0-36.0) % 34.1 RDW (11.8-14.1) % 13.2 Plt Count (130-400) 10^3/uL 330 MPV (8.0-11.0) fL 9.1 Immature Gran % % 0.4 Neutrophils % % 62.8 Lymphocytes % % 23.7 Monocytes % % 9.3 Eosinophils % % 3.0 Basophils % % 0.8 Nucleated RBC % (0.0-0.3) % 0.0 Absolute Neutrophils (1.2-6.7) 10^3/uL 6.17 Absolute Lymphocytes (1.2-3.4) 10^3/uL 2.33 Absolute Monocytes (0.1-0.8) 10^3/uL 0.92 H Absolute Eosinophils (0.0-0.7) 10^3/uL 0.30 Absolute Basophils (0.0-0.2) 10^3/uL 0.08 D-Dimer (<500) ng/mlFEU 1141 H Sodium (136-145) mmol/L 136 Potassium (3.5-5.1) mmol/L 4.5 Chloride (98-107) mmol/L 99 Carbon Dioxide (21.0-32.0) mmol/L 29.7 Anion Gap (3-11) mmol/L 7.3 BUN (7-18) mg/dL 19 H Creatinine (0.70-1.30) mg/dL 1.0 Est GFR (CKD-EPI 2020) (mL/min/1.73m2) 86.70 Glucose (74-106) mg/dL 91 Calcium (8.5-10.1) mg/dL 9.4 Magnesium (1.8-2.4) mg/dL 2.0 Total Bilirubin (0.2-1.0) mg/dL 0.6 AST (15-37) U/L 20 ALT (16-63) U/L 24 Alkaline Phosphatase (46-116) U/L 103 Troponin I (<or=76) ng/L 12 11 NT-Pro-B Natriuret Pep (<300) pg/mL 350 H Total Protein (6.4-8.2) g/dL 8.0 Albumin (3.4-5.0) g/dL 3.8 Lipase (<78) U/L 422 H Urine Color (Yellow) Yellow Urine Clarity (Clear) Clear Urine pH (5-8) 7.0 Ur Specific [place] (1.005-1.025) 1.010 Urine Protein (Neg-Trace) mg/dL Negative Urine Ketones (Negative) mg/dL Negative Urine Blood (Negative) Negative Urine Nitrite (Negative) Negative Urine Bilirubin (Negative) Negative Urine Urobilinogen (Up to 0.2) mg/dL 0.2 Ur Leukocyte Esterase (Negative) Negative Urine Glucose (Negative) mg/dL Negative PFSH All Active Problems (Updated 11/12/24 @ 14:52 by EMANUEL Rosa) Pancreatitis (Chronic) Chest pain of uncertain etiology (Acute) Myocardial infarct (Chronic) Renal cell carcinoma (Acute) Tobacco dependence (Acute) Depressed (Chronic) Anxiety disorder (Acute) CAD (coronary artery disease) (Chronic) Aorta aneurysm (Chronic) Dysphagia (Acute) Chest pain (Acute) Dyspnea (Acute) Rectal fissure (Acute) Hematuria (Acute) Pancreatitis (Chronic) Abdominal pain (Acute) Lumbago (Acute) Medical History Benign prostatic hyperplasia with weak urinary stream (05/01/17) Chronic otitis media of right ear Chronic otitis media with effusion (01/03/14) Family history of prostate cancer in father (05/01/17) Hearing loss Heart murmur Hx of cataract Mastoiditis (01/24/14) Mixed hearing loss, unilateral (01/24/14) Tympanic membrane perforation Tympanic membrane perforation (01/03/14) Surgical History Arthroscopy, Shoulder right ear surgery right ear for otitis media Extraction of cataract left History of nephrectomy, left Nephrectomy left side-for cysts (benign) Repair of inguinal hernia (05/07/17) right wrist surgery right- for tendon injury secondary to laceration Family History Other Bronchitis Heart disease Lymphoma Melanoma Thyroid cancer Social History Smoking/Tobacco Use Status: Current every day Tobacco Type: cigarettes Years smoked: 45 Smoking risk assessment performed?: Yes Alcohol Intake: former Drug use: Daily Substance use type: marijuana Details: DABS oil Housing: house Do you feel safe at home: Yes Do you feel safe in your relationship?: Yes Additional Social history: has custody of 3 grand children
[2024-11-11] MEDS: Aspirin 81 MG CHEW 324 MG CH (11:54)
[2024-11-11 12:07] LABS: Abs Immature Grans 0.04 10^3/uL (0.0-0.06); HCT 45.7 % (40.0-50.0); HGB 15.6 g/dL (13.5-17.5); Immature Grans % 0.4 %; MCH 30.2 pg (27.0-33.0); MCHC 34.1 % (32.0-36.0); MCV 89 fL (80-95); MPV 9.1 fL (8.0-11.0); Platelet Count 330 10^3/uL (130-400); RBC 5.16 10^6/uL (4.36-5.78); RDW 13.2 % (11.8-14.1); RDW-SD 42.9 fL; WBC 9.84 10^3/uL (4.4-10.8)
[2024-11-11 12:25] LABS: Glucose Negative (Negative)
[2024-11-11 12:35] LABS: ALT 24 U/L (16-63); AST 20 U/L (15-37); Albumin 3.8 g/dL (3.4-5.0); Alkaline Phosphatase 103 U/L (46-116); Anion Gap 7.3 mmol/L (3-11); BUN 19 mg/dL (7-18); Bilirubin, Total 0.6 mg/dL (0.2-1.0); CO2 29.7 mmol/L (21.0-32.0); Calcium 9.4 mg/dL (8.5-10.1); Chloride 99 mmol/L (98-107); Estimated GFR 86.70 (mL/min/1.73m2); Glucose 91 mg/dL (74-106); Lipase 422 U/L (<78); Magnesium 2.0 mg/dL (1.8-2.4); NT-proBNP 350 pg/mL (<300); Potassium 4.5 mmol/L (3.5-5.1); Sodium 136 mmol/L (136-145); Total Protein 8.0 g/dL (6.4-8.2); Troponin I 12 ng/L (<or=76)
[2024-11-11 12:42] LABS: D-Dimer 1141 ng/mlFEU (<500)
--- NOTE | 2024-11-11 13:00 | DI.CT_ITS ---
Exam(s) CT CHEST PE CTA EXAM: CT CHEST PE CTA CLINICAL HISTORY: elev d-dimer, chest pain. TECHNIQUE: Imaging Protocol: CT angiography of the chest was performed using pulmonary embolus protocol. Multi planar reconstructions were performed. CONTRAST MATERIAL: Intravenous: Omnipaque 350 Contrast volume: 65 cc COMPARISON: CT CT THORAX ABD/PEL CTA from 06/24/2024 FINDINGS: CHEST: PULMONARY ARTERIES: There are no intraluminal filling defects to suggest acute pulmonary emboli. LUNGS: There are no infiltrates nor evidence of pulmonary infarction.. There are no pleural effusions. There is a calcified granuloma again noted in the posterior basal segment of the right lower lobe. There is also a small 2 mm nodule in the lateral basal segment of the right lower lobe. Another small 2-3 mm nodule is noted in the mid right lower lobe, unchanged there is also an unchanged subpleural nodule measuring 4 mm in the lateral aspect of the right upper lobe, also unchanged. There are no significant focal findings in the left lung. MEDIASTINUM: There is no hilar nor mediastinal adenopathy. Visualized thyroid unremarkable. CARDIAC: Heart size is normal. There is no pericardial effusion. There is no shift of the interventricular septum.Caliber of the thoracic aorta is within normal limits. There is some reflux of intravenous contrast into the intrahepatic IVC and intrahepatic veins. Right side of the heart is not enlar ged. There is no significant shift of the interventricular septum. PARTIALLY VISUALIZED UPPERMOST ABDOMEN: Left kidney is surgically absent. Right kidney appears unremarkable. There is an abdominal aortic aneurysm partially included in the field of view here and exhibiting maximum diameter of 4.2 cm in the field of view of this chest study. OSSEOUS: No significant osseous lesions.No fractures.. IMPRESSION: 1. No evidence of acute pulmonary emboli. No evidence of pulmonary infarction.No pleural effusions. 2. Are small stable pulmonary nodules in the right lung, the largest being in the lateral aspect of the right upper lobe and measuring 4 mm, unchanged. There is no intra thoracic adenopathy. Appropriate follow-up for these nodules would be repeat CT scan in 1 year. Report called by myself to ER provider on 11/11/2024 at 2:32 pm. RADIATION DOSE DELIVERED: 89.98mGy.cm Total DLP DATA REPOSITORY: All CT scans at this facility are submitted to the National Radiology Data Registry (NRDR) Dose Index Registry (DIR) with the [employer] ([employer]). RADIATION OPTIMIZATION: All CT scans at this facility use at least one of these dose optimization techniques: automated exposure control; mA and/or kV adjustment per patient size (includes targeted exams where dose is matched to clinical indication); or iterative reconstruction.
[2024-11-11] MEDS: Normal Saline - Diluent 50 ML VIAL IJ (13:38)
[2024-11-11] MEDS: Normal Saline Flush 10 ML SYR IVP (13:42)
[2024-11-11] MEDS: Omnipaque 350 MG/ML 100 ML BTL 65 ML IJ (13:43)
[2024-11-11 13:47] LABS: Troponin I 11 ng/L (<or=76)
[2024-11-11] MEDS: Ibuprofen 400 MG TAB PO (15:08)
[2024-11-11] MEDS: Acetaminophen 500 MG TAB 1000 MG PO (15:08)
== END 2024-11-11 15:09 | disposition home or self-care (01) ==
PROVIDERS: Emergency Provider Physician Assistant; PCP Physician Assistant
DX: R07.9 Chest pain, unspecified (principal); K85.90 Acute pancreatitis without necrosis or infection, unspecified; J44.9 Chronic obstructive pulmonary disease, unspecified; I25.10 Atherosclerotic heart disease of native coronary artery without angina pectoris; I25.2 Old myocardial infarction; I71.40 Abdominal aortic aneurysm, without rupture, unspecified; F17.210 Nicotine dependence, cigarettes, uncomplicated; Z90.5 Acquired absence of kidney; Z79.899 Other long term (current) drug therapy
CPT/HCPCS: 36415; 71275; 80053; 83690; 93005; 99285; 81003; 83735; 83880; 84484; 85025; 85379; 93010; 99284; J3490